=== PATIENT | male | born 1945 | race Caucasian/White ===

== ENCOUNTER → 2017-04-16 | Outpatient (CLI) | payer OTHER ==
[2017-04-16 13:32] LABS: Blood Urea Nitrogen 23 mg/dL (9-20)
== END | disposition home or self-care (01) ==
LOC: LABWHC1 12:38
PROVIDERS: ATTEND Physician Assistant
DX: R42 Dizziness and giddiness (principal)
CPT/HCPCS: 36415; 82565; 84520

== ENCOUNTER → 2017-04-17 | Outpatient (CLI) | payer OTHER ==
--- NOTE | 2017-04-19 09:03 | MR ---
EXAMINATION TYPE: MR brain wo/w con DATE OF EXAM: 04/17/2017 COMPARISON: NONE HISTORY: Dizzy,Headaches, Gadavist 7.5 TECHNIQUE: Multiplanar, multisequence images of the brain and brainstem is performed without and with IV contras t, utilizing 7.5 mL intravenous Gadavist . FINDINGS: Diffusion weighted images demonstrate no evidence of a recent infarct or other diffusion ab normality. There is no extra-axial fluid collection. Multiple prominent perivascular spaces are not ed in the level of the inferior basal ganglia. Incidentally noted cavum septum pellucidum. Numerous T 2/IR hyperintense foci are scattered throughout the periventricular and subcortical white matter. The ventricular system and cisternal spaces are normal in size and appearance for the patient's age with symmetric prominence related to age-related volume loss. Major intracranial flow voids are maintain ed. Midline structures demonstrate normal morphology. The craniocervical junction appears within normal limits. The dural venous sinuses appear patent. Moderate mucosal thickening is seen within the ethmo id sinuses. There is partial opacification of the right mastoid air cells. Globes are symmetric. Roun ded enhancement within the medulla and upper cervical spinal cord is thought to be related to vascula r artifact given its appearance on coronal images. Post contrast images demonstrate no suspicious enh ancement. IMPRESSION: 1. Partial opacification in the right mastoid air cells may relate to mastoiditis. Correlate for poin t tenderness as this could account for the patient's headaches and potentially dizziness. 2. Moderate mucosal thickening within the ethmoid sinuses relating to paranasal sinus disease. 3. Moderate burden nonspecific white matter changes, most commonly on the basis of chronic microangio tonya. 4. No evidence of acute infarct, midline shift or mass effect. No suspicious postcontrast enhancement .
== END | disposition home or self-care (01) ==
LOC: RADMRIMAIN 17:28
PROVIDERS: ATTEND Physician Assistant
DX: G93.89 Other specified disorders of brain (principal)
CPT/HCPCS: 70553; A9581

== ENCOUNTER → 2017-06-04 | Outpatient (CLI) | payer OTHER ==
--- NOTE | 2017-06-04 14:42 | US ---
EXAMINATION TYPE: US carotid duplex BILAT DATE OF EXAM: 06/04/2017 COMPARISON: NONE CLINICAL HISTORY: R55 Syncope and collapse. vertigo, h/o heart bypass, no stroke EXAM MEASUREMENTS: RIGHT: Peak Systolic Velocity (PSV) cm/sec ----- Right CCA: 70.8 ----- Right ICA: 122 ----- Right ECA: 130 ICA/CCA ratio: 1.7 RIGHT: End Diastole cm/sec ----- Right CCA: 16.8 ----- Right ICA: 29.2 ----- Right ECA: 9.5 LEFT: Peak Systolic Velocity (PSV) cm/sec ----- Left CCA: 82.0 ----- Left ICA: 200 ----- Left ECA: 127 ICA/CCA ratio: 2.4 LEFT: End Diastole cm/sec ----- Left CCA: 19.2 ----- Left ICA: 58.7 ----- Left ECA: 11.7 VERTEBRALS (direction of flow): Right Vertebral: Antegrade Left Vertebral: Antegrade Rhythm: Normal Heterogeneous plaque seen along left ICA with some stenosis. Grayscale, color Doppler, spectral Doppler imaging performed of the carotid arteries. Elevated velocity noted in the proximal internal carotid artery, there is loss of systolic window, sp ectral broadening on waveform analysis. IMPRESSION: Hemodynamic significant stenosis of the proximal internal carotid artery on the left cor responding to approximately 50-69% diameter stenosis by Doppler criteria, an indirect measurement of carotid stenosis Criteria for Assigning % of Stenosis / Diameter reduction (Estimation based on the indirect measurements of the internal carotid artery velocities (ICA PSV). 1. Normal (no stenosis)=ICA PSV < 125 cm/s: ratio < 2.0: ICA EDV<40 cm/s. 2. Less than 50% stenosis=ICA PSV < 125 cm/s: ratio < 2.0: ICA EDV<40 cm/s. 3. 50 to 69% stenosis=ICA PSV of 125 to 230 cm/s: ration 2.0 ? 4.0: ICA EDV 40-100 cm/s. 4. Greater than 70% stenosis to near occlusion= ICA PSV > 230 cm/s: ratio > 4.0: ICA EDV > 100 cm/s. 5. Near occlusion= ICA PSV velocities may be low or undetectable: variable ratio and ICA EDV. 6. Total occlusion=unable to detect flow.
== END | disposition home or self-care (01) ==
LOC: RADUSWWP 10:36
PROVIDERS: ATTEND Psychiatry & Neurology Neurology
DX: I65.22 Occlusion and stenosis of left carotid artery (principal)
CPT/HCPCS: 93880

== ENCOUNTER → 2017-07-01 | Outpatient (CLI) | payer OTHER ==
--- NOTE | 2017-07-01 12:11 | CT ---
EXAMINATION TYPE: CT iac wo con DATE OF EXAM: 07/01/2017 COMPARISON: MRI brain 04/17/2017 HISTORY: 71-year-old male vertigo, mastoiditis, hearing loss CT DLP: 150 mGycm Automated exposure control for dose reduction was used. TECHNIQUE: Contiguous high-resolution axial scanning of the temporal bones performed without IV cont rast; coronal reformatted images obtained. FINDINGS: There is no abnormality of the visualized intracranial structures by thin section CT. The external auditory canals appear patent. The middle ear cavities are well pneumatized. There is improvement in aeration of the right-sided mas toid air cells. Small amount of fluid remains. Left mastoid air cells well pneumatized. There is no abnormality of middle ear ossicles. The round and oval windows are normal. There is no abnormality of bony labyrinths. The vestibular aqueduct are well visualized. The facial nerve canal is normal bilaterally. The internal auditory canal and meati are symmetrical bilaterally. There is no evidence of fractures. Mwjw-pc-[id number] mucosal thickening within the visualized maxillary sinuses. Reformatted images confirm above findings. IMPRESSION: 1. Improved aeration of the right mastoid air cells as compared to the MRI of 04/17/2017. Minimal fluid remains. Correlate for any symptoms of mastoiditis. 2. Otherwise, unremarkable temporal bone CT. 3. Mild chronic maxillary sinus disease.
== END | disposition home or self-care (01) ==
LOC: RADCTMAIN 11:35
PROVIDERS: ATTEND Otolaryngology
DX: H70.90 Unspecified mastoiditis, unspecified ear (principal)
CPT/HCPCS: 70480

== ENCOUNTER → 2017-08-08 | Outpatient (CLI) | payer OTHER ==
[2017-08-08 15:50] LABS: Blood Urea Nitrogen 17 mg/dL (9-20)
--- NOTE | 2017-08-08 16:42 | MR ---
EXAMINATION TYPE: MR poli/lspine wo con DATE OF EXAM: 08/08/2017 COMPARISON: Lumbar spine x-ray April 07, 2013. HISTORY: Cervicalgia and lumbago per order. Headache with neck pain and vertigo and dizziness for man y years per patient. Low back pain into bilateral buttocks since 1970 per patient. 4 old L1-L4 compre ssion fractures per patient. TECHNIQUE: Multiplanar, multisequence imaging of the cervical and lumbar spine are performed without IV contrast. FINDINGS: C-SPINE: FINDINGS: Sagittal images of the cervical spine show the craniocervical junction to appear within nor mal limits. The cervical and upper thoracic spinal cord is normal in course, caliber, and signal. Th ere is slight grade 1 retrolisthesis of C4 on C5. The vertebral body heights are normal. Mild multi level disc space narrowing is seen with small posterior disc herniation effacing the anterior thecal sac C3-C4, C4-C5, and C6-C7 levels on sagittal images heterogeneity of bone marrow signal intensity w ith Modic type II endplate changes superior C7 endplate is noted. Axial images show at C2-C3 level shows some right-sided uncovertebral facet degenerative change causi ng asymmetric mild right-sided neural foraminal narrowing. Spinal canal is preserved. Left-sided neur al foramina is patent. Axial images at C3-C4 level show uncovertebral facet degenerative changes causing mild to moderate le ft and mild right-sided neural foraminal narrowing. There is right paracentral disc protrusion effaci ng anterior thecal sac. Axial images at C4-C5 levels show spondylolisthesis and broad-based posterior disc protrusion effacin g anterior thecal sac and causing moderate bilateral neural foraminal narrowing and axial image 23. Axial images at C5-C6 levels show broad disc protrusion effacing anterior thecal sac and causing mild to moderate left greater than right neural foraminal narrowing. Axial images at C6-C7 level show broad disc protrusion effaces the anterior thecal sac nearly up to v entral surface of spinal cord, bilateral neural foramina are patent. Axial images at C7-T1 level are felt within normal limits. IMPRESSION: Slight spondylolisthesis C4-C5 level. Multilevel degenerative changes in the cervical spi ne as detailed above. L-SPINE: Sagittal images of the lumbar spine show vertebral body heights and alignment to appear satisfactory. Multilevel disc desiccation is seen. There is persistent advanced disc space narrowing vacuum disc p henomenon L5-S1 level. Heterogeneous Modic type II degenerative changes seen along the left aspect. T here is overall heterogeneity of bone marrow signal intensity. Mild multilevel anterior spurring is p resent. No large posterior disc herniations are seen on sagittal images. The conus medullaris is norm al in position and signal ending inferior L1 level. Axial images show the T12-L1 level to appear within normal limits. Axial images at L1-L2 level show tiny right posterior central disc protrusion mildly effaces anterior thecal sac on axial image 23. There is mild facet arthropathy and ligament flavum hypertrophy. Bilat eral neural foramina are patent. Axial images at L2-L3 level mild facet arthropathy bilaterally. Spinal canal is preserved. Bilateral neural foramina is patent. Axial images at L3-L4 level some rqgq-qy-wwhqzblj facet degenerative changes bilaterally. There is br oad disc bulge seen mildly effaces the anterior thecal sac. There is mild right greater than left ortega ateral neural foraminal narrowing at this level identified. Axial images at L4-L5 levels moderate facet degenerative changes bilaterally. There is broad disc bul ge seen. There is [id number]-[id number] bilateral neural foraminal narrowing at this level identified. Axial images at L5-S1 level shows mild to moderate facet degenerative changes bilaterally. Spinal can al is preserved. Bilateral neural foramina are patent. No suspicious retroperitoneal findings are identified. Artifact from IVC filter is noted near axial i mage 16. IMPRESSION: Multilevel degenerative changes in lumbar spine as detailed above.
--- NOTE | 2017-08-09 12:31 | CT ---
EXAMINATION TYPE: CT angio neck DATE OF EXAM: 08/08/2017 HISTORY: Dizziness for months COMPARISON: NONE CT DLP: 325.7 mGycm. Automated Exposure Control for Dose Reduction was Utilized. TECHNIQUE: CTA scan of the neck is performed with IV Contrast, patient injected with 65 mL of Isovue 370, axial images are obtained, coronal and sagittal reformatted images are reviewed. Three-D recons tructed images are created on an independent workstation and reviewed. FINDINGS: Carotid/Vascular Structures: There are 3 super aortic branch vessels. Transverse aorta is patent. The innominate, left and right subclavian, left and right common carotid arteries are patent. Patient is post median sternotomy. Proximal internal carotid arteries show stenosis bilaterally, carotid artery calcifications are prese nt. Stenosis on the left is high-grade corresponding to approximately 80% or greater diameter stenosi s. Proximal internal carotid artery on the right shows a stenosis of approximately 60-70% diameter re duction. Vertebral arteries are patent and codominant. Internal carotid arteries show atheromatous change at t he level of the siphon bilaterally. There are calcifications present. Other: Inflammatory changes are present within the sphenoid sinus, ethmoid air cells, maxillary sinus es. Degenerative disc disease present in the visualized spine. Multilevel foraminal encroachment is p resent. Some probable scarring present in the right upper lobe. IMPRESSION: Hemodynamic significant stenosis of the proximal internal carotid arteries bilaterally le ft greater than right. Degenerative disc disease and multilevel foraminal encroachment.
== END | disposition home or self-care (01) ==
LOC: RADMRIMAIN 14:48
PROVIDERS: ATTEND Psychiatry & Neurology Neurology
DX: I65.23 Occlusion and stenosis of bilateral carotid arteries (principal); M50.30 Other cervical disc degeneration, unspecified cervical region; M43.12 Spondylolisthesis, cervical region; M47.812 Spondylosis without myelopathy or radiculopathy, cervical region; M47.817 Spondylosis without myelopathy or radiculopathy, lumbosacral region
CPT/HCPCS: 82565; 84520; 70498; 36415; 72141; 72148; Q9967

== ENCOUNTER → 2018-06-26 | Outpatient (CLI) | payer OTHER ==
--- NOTE | 2018-06-26 14:22 | MR ---
EXAMINATION TYPE: MR shoulder LT wo con DATE OF EXAM: 06/26/2018 COMPARISON: Outside left shoulder x-ray report May 13, 2018 HISTORY: L shoulder pain for 2 months with difficulty raising overhead after injury per patient. TECHNIQUE: Multiplanar, multisequence imaging of the left shoulder is performed without contrast. FINDINGS: Rotator Cuff: Distal supraspinatus and infraspinatus tendons are intact. Distal subscapularis tendon is not well identified but presumed intact. No suspicious tear is seen. Rotator cuff muscle bulk is p reserved. Acromioclavicular Joint: There is mild to moderate spurring with erosive changes at acromioclavicular joint but no adjacent osseous edema. Underlying fat plane is maintained. Distal acromion morphology is unremarkable. Glenohumeral Joint: Small to moderate glenohumeral joint effusion. Moderate narrowing with small spur ring inferior medial humeral head. Labrum: The superior labrum shows some degenerative increased signal coronal image 14 and 15 for refe rence consistent with degenerative tear. Biceps Tendon: The long head of biceps is in normal location within bicipital groove. Focal increased surrounding fluid axial image 5 is noted. Bone marrow signal: Subchondral cystic change superolateral humeral head coronal image 20 and axial i mage 15 is noted along posterior aspect. Other: No additional significant abnormality is appreciated. IMPRESSION: 1. No rotator cuff tear is seen. 2. No suspicious osseous edema at acromioclavicular joint to suggest acute inflammation. Fairly moder ate degenerative changes as detailed above.
--- NOTE | 2018-06-26 15:09 | MR ---
EXAMINATION TYPE: MR lumbar spine wo/w con DATE OF EXAM: 06/26/2018 1:57 PM COMPARISON: 08/08/2017 HISTORY: Back pain CONTRAST: The patient was injected with 7.5 mL intravenous Gadavist gadolinium contrast. Multiplanar, MultiSpin echo imaging of the lumbar spine was performed. Decreased bone marrow signal intensity in T1 weighted imaging may reflect bone marrow reconversion. Correlate with CBC. L1-L2: Normal disc appearance without desiccation. No herniation, protrusion or disc bulging. No ca nal stenosis is present. Foramina are patent bilaterally. L2-L3: Mild disc desiccation noted. Mild circumferential disc bulge with mild effacement of the ventr al thecal sac. No evidence for disc herniation or protrusion. No central stenosis or foraminal encroa chment. L3-L4: Normal disc appearance without desiccation. No herniation, protrusion or disc bulging. No ca nal stenosis is present. Foramina are patent bilaterally. L4-L5: Normal disc appearance without desiccation. No herniation, protrusion or disc bulging. No ca nal stenosis is present. Foramina are patent bilaterally. L5-S1: Severe disc desiccation. Mild posterior disc bulge. No herniation protrusion or central stenos is. No evidence for foraminal encroachment. Lumbar segments are intact. No paraspinal masses are identified. Conus medullaris has a normal appe arance. Simple cyst right kidney IMPRESSION: 1. Decreased bone marrow signal intensity in T1 weighted imaging may reflect bone marrow reconversion . Correlate with CBC. 2. Disc desiccation with disc bulging. No herniation or central stenosis.
== END | disposition home or self-care (01) ==
LOC: RADMRIMAIN 12:30
PROVIDERS: ATTEND Physician Assistant
DX: M19.012 Primary osteoarthritis, left shoulder (principal); M51.26 Other intervertebral disc displacement, lumbar region
CPT/HCPCS: 72158; 73221; A9585

== ENCOUNTER → 2020-08-20 | Outpatient (CLI) | payer OTHER ==
--- NOTE | 2020-08-20 17:47 | MR ---
EXAMINATION TYPE: MR brain wo con DATE OF EXAM: 08/20/2020 COMPARISON: 04/17/2017 HISTORY: Vision loss. Vertigo. Tremors Multiplanar planar multiecho imaging of the brain without contrast. Findings: There is some cerebral cortical atrophy. There is no mass effect nor midline shift. There is no sign of intracranial hemorrhage. Diffusion images show no evidence of an acute infarct. On the T2 and FLAI R images there are multiple scattered small foci of abnormal increased signal at the boland-white matte r junction of both cerebral hemispheres. There is also lesions adjacent to the ventricles. These irving ure up to 8 mm and total number is approximately 25. The brainstem is intact. Cerebellum is intact. Sella turcica appears normal. There is no evidence of orbital mass.. IMPRESSION: Multiple white matter high signal foci are nonspecific. This could relate to chronic small vessel isc hemia or demyelinating disease and appear not significantly different than old exam. Mild cerebral at rophy. No evidence of an acute infarct.
== END | disposition home or self-care (01) ==
LOC: RADMRIMAIN 13:09
PROVIDERS: ATTEND Psychiatry & Neurology Neurology
DX: G31.9 Degenerative disease of nervous system, unspecified (principal)
CPT/HCPCS: 70551

== ENCOUNTER → 2020-09-20 | Outpatient (CLI) | payer OTHER ==
--- NOTE | 2020-09-21 02:42 | MR ---
EXAMINATION TYPE: MR lumbar spine wo con DATE OF EXAM: 09/20/2020 COMPARISON: 06/16/2018 HISTORY: Low back pain Multiplanar multiecho imaging of the lumbar spine was performed without contrast. Lumbar vertebra have normal alignment. There is mild disc space narrowing throughout the lumbar spine. There is some mild biconcave changes in the lumbar vertebra consistent with osteomalacia. There is severe narrowing of L5-S1 disc space. T here is developmentally adequate spinal canal and no significant spinal stenosis. There is no lumbar paraspinal mass. Sacroiliac joints are intact. There is no evidence of focal bone destruction. IMPRESSION: Mild spondylotic changes. Mild osteomalacia type changes with some biconcave deformity of the vertebr al bodies. No significant change compared to old exam. No spinal stenosis.
== END | disposition home or self-care (01) ==
LOC: RADMRIMAIN 15:31
PROVIDERS: ATTEND Physician Assistant
DX: M47.816 Spondylosis without myelopathy or radiculopathy, lumbar region (principal)
CPT/HCPCS: 72148

== ENCOUNTER → 2021-01-04 | Outpatient (CLI) | payer OTHER ==
--- NOTE | 2021-01-05 07:10 | MR ---
EXAMINATION TYPE: MR knee RT wo con DATE OF EXAM: 01/04/2021 COMPARISON: None. HISTORY: Pain and swelling in right knee, history of prior surgery per patient TECHNIQUE: Multiplanar, multisequence imaging of the right knee is performed without IV contrast. FINDINGS: MEDIAL MENISCUS: Faint horizontal increased signal medial meniscus extends from anterior to posterior horns with central body sagittal image 6, does not abut articular surface. There is deeper cleft giacomo ntified suspect prior surgical partial meniscectomy, correlate clinically. LATERAL MENISCUS: Anterior and posterior horns are intact without tear. CRUCIATE LIGAMENTS: The anterior and posterior cruciate ligaments are intact and unremarkable. COLLATERAL LIGAMENTS: The medial collateral ligament and lateral collateral ligament complex are inta ct and unremarkable. EXTENSOR MECHANISM: Visualized quadriceps and patellar tendons are intact. EFFUSION: No significant suprapatellar joint effusion. POPLITEAL CYST: Small popliteal/june cyst sagittal image 9. TRICOMPARTMENT SPACES: Moderate narrowing patellofemoral compartment. Mild narrowing medial lateral t ibiofemoral compartments. Mild tricompartmental spurring. CARTILAGE: Chondromalacia patella with thinning of articular cartilage along the posterior patellar p ole particularly the inferior lateral aspect. BONE MARROW SIGNAL: No focal abnormal marrow signal is appreciated. OTHER: No additional significant abnormality is appreciated. IMPRESSION: 1. Mild to moderate tricompartment degenerative changes greatest patellofemoral compartment as detail ed above. 2. Prior partial medial meniscectomy change suspected, correlate clinically. Possible new intrasubsta nce tear in the residual medial meniscus. 3. Small popliteal cyst.
== END | disposition home or self-care (01) ==
LOC: RADMRIMAIN 11:46
PROVIDERS: ATTEND Physician Assistant
DX: M17.11 Unilateral primary osteoarthritis, right knee (principal); M71.21 Synovial cyst of popliteal space [Baker], right knee

== ENCOUNTER 2021-03-26 20:29 | Emergency (ER) | payer OTHER ==
[2021-03-26 22:05] VITALS: BP 146/83; PULSE 61; RESP 20; TEMP 97.4
--- NOTE | 2021-03-26 22:27 | XR ---
EXAMINATION TYPE: XR knee complete RT DATE OF EXAM: 03/26/2021 COMPARISON: NONE HISTORY: Knee pain TECHNIQUE: 3 views FINDINGS: There is no sign of fracture nor dislocation. Joint spaces are normal. Patella is intact. T here is vascular calcification. IMPRESSION: Negative right knee exam. No fracture seen.
[2021-03-26] MEDS ORDERED: BACITRACIN OINT 1 EACH PACKET TOPICAL ONE (22:48)
--- NOTE | 2021-03-26 22:50 | ED ---
General Adult HPI - General Chief complaint: Fall Stated complaint: Fall-R knee injury Time Seen by Provider: 03/26/21 22:39 Source: patient Mode of arrival: ambulatory - History of Present Illness Initial comments: 75-year-old male patient presents to the emergency room for evaluation of right knee injury. Patient states he was walking his cane slipped on ice and he fell landing on the right knee. Patient denies hitting his head or losing consciousness. States he is having some sneezing swelling and pain. He was recently taking Plavix does take aspirin so is concerned about bleeding. He is able to bear weight on the leg. Denies numbness or tingling. Denies any difficulty with range of motion. Denies taking any medication for pain. Tetanus vaccine is up to date within the last 5 years. - Related Data Allergies Allergy/AdvReac Type Severity Reaction Status Date / Time lisinopril AdvReac Abdominal Verified 03/26/21 21:50 Pain [id number] Reductase AdvReac Abdominal Verified 03/26/21 21:50 Inhibitor Pain Review of Systems ROS Statement: Those systems with pertinent positive or pertinent negative responses have been documented in the HPI. ROS Other: All systems not noted in ROS Statement are negative. Past Medical History Past Medical History: CVA/TIA, Hyperlipidemia, Hypertension History of Any Multi-Drug Resistant Organisms: None Reported Past Surgical History: Coronary Bypass/CABG, Heart Catheterization With Stent Additional Past Surgical History / Comment(s): Left inner carotid, shamika filter Past Psychological History: No Psychological Hx Reported Smoking Status: Never smoker Past Alcohol Use History: None Reported Past Drug Use History: None Reported General Exam General appearance: alert, in no apparent distress, other (This is a well-developed, well-nourished adult male in no acute distress.) Respiratory exam: Present: normal lung sounds bilaterally. Absent: respiratory distress, wheezes, rales, rhonchi, stridor Cardiovascular Exam: Present: regular rate, normal rhythm, normal heart sounds. Absent: systolic murmur, diastolic murmur, rubs, gallop, clicks GI/Abdominal exam: Present: soft, normal bowel sounds. Absent: distended, tenderness, guarding, rebound, rigid Extremities exam: Present: full ROM, tenderness (Anterior right knee), normal capillary refill, other (Ur is superficial abrasion noted to the right anterior knee. Mild soft tissue swelling. Full range of motion is intact. Skin is otherwise pink, warm, dry. Cap refill less than 3 seconds. Pedal and posttibial pulses are 2+ and equal bilaterally.). Absent: normal inspection, pedal edema, joint swelling, calf tenderness Neurological exam: Present: alert, oriented X3, CN II-XII intact Psychiatric exam: Present: normal affect, normal mood Skin exam: Present: warm, dry, intact, normal color. Absent: rash Course Vital Signs 03/26/21 21:52 Temperature 97.4 F L Pulse Rate 61 Respiratory 20 Rate Blood Pressure 146/83 O2 Sat by Pulse 97 Oximetry Medical Decision Making - Medical Decision Making 75-year-old male patient presented for evaluation of right knee injury after fall. Physical examination did reveal mild soft tissue swelling and superficial abrasion. He is able to bear weight, full range of motion is intact, neurovascular status is intact. X-rays negative for any acute fracture or evidence for joint effusion. Wound was cleansed, bacitracin and dressing applied. Justin wrap applied to the knee. He is discharged follow up with his primary care physician for recheck in 1-2 days. He does have planned follow-up with orthopedics for chronic issues with this right knee. Return parameters were discussed in detail. He verbalizes understanding and is discharged in stable condition. My attending is Dr. Gipson. - Radiology Data Radiology results: report reviewed, image reviewed 3 views of the right knee are obtained. Report was reviewed in its entirety. Impression by Dr. Marquez shows negative right knee exam. No fracture seen. Disposition Clinical Impression: Contusion of right knee, Abrasion of right knee Disposition: HOME SELF-CARE Condition: Good Instructions (If sedation given, give patient instructions): Contusion in Adults (ED), Abrasion (ED) Additional Instructions: Keep wound clean and dry. Cleanse twice daily with warm water and antibacterial soap. Use Justin wrap for comfort and support. Follow-up with her primary care physician orthopedics as you have planned. Return for any new, worsening, or concerning symptoms. Is patient prescribed a controlled substance at d/c from ED?: No Referrals: [facility],Clinic [Primary Care Provider] - 1-2 days Time of Disposition: 22:50
[2021-03-26] MEDS ORDERED: ACETAMINOPHEN TAB 500 MG TAB PO STA (23:06)
== END 2021-03-26 23:20 | disposition home or self-care (01) ==
LOC: EC 20:29
DX: S80.01XA Contusion of right knee, initial encounter (principal); E78.5 Hyperlipidemia, unspecified; I10 Essential (primary) hypertension; Z86.73 Personal history of transient ischemic attack (TIA), and cerebral infarction without residual deficits; Z95.1 Presence of aortocoronary bypass graft; W22.8XXA Striking against or struck by other objects, initial encounter
CPT/HCPCS: 99283

== ENCOUNTER 2021-07-12 05:57 | Day surgery (SDC) | payer OTHER ==
[2021-07-11 09:04] VITALS: BMI 24.0
[2021-07-12] MEDS ORDERED: ASPIRIN 325 MG TAB PO STA (06:07)
[2021-07-12] MEDS ORDERED: ALPRAZolam 0.5 MG TAB PO PRN (06:07)
[2021-07-12] MEDS ORDERED: SODIUM CHLORIDE 0.9% 1,000 ML in EMPTY BAG 1 BAG IV SCH (06:07)
[2021-07-12] MEDS ORDERED: NITROGLYCERIN SL TABS 0.4 MG TAB SUBLINGUAL PRN (06:07)
[2021-07-12] MEDS ORDERED: ALPRAZolam 0.25 MG TAB PO PRN (06:07)
[2021-07-12 06:31] VITALS: RESP 18; TEMP 98.4
[2021-07-12 06:53] LABS: Basophils # (A) 0.1 k/uL (0-0.2); Basophils % (A) 1 %; Eosinophils # (A) 0.5 k/uL (0-0.7); Eosinophils % (A) 5 %; HCT 45.7 % (39.0-53.0); HGB 15.4 gm/dL (13.0-17.5); Lymphocytes # (A) 2.7 k/uL (1.0-4.8); Lymphocytes % (A) 29 %; MCH 31.3 pg (25.0-35.0); MCHC 33.6 g/dL (31.0-37.0); Mean Platelet Volume 9.5; Monocytes # (A) 0.9 k/uL (0-1.0); Monocytes % (A) 9 %; Neutrophils # (A) 5.1 k/uL (1.3-7.7); Neutrophils % (A) 54 %; Platelet Count 188 k/uL (150-450); RBC 4.91 m/uL (4.30-5.90); RDW 13.5 % (11.5-15.5); WBC 9.5 k/uL (3.8-10.6)
[2021-07-12 07:01] LABS: African American GFR (CKD) >90 (>60 ml/min/1.73 sqM); Anion Gap 8 mmol/L; Blood Urea Nitrogen 17 mg/dL (9-20); Calcium 9.1 mg/dL (8.4-10.2); Carbon Dioxide 28 mmol/L (22-30); Chloride 103 mmol/L (98-107); Glucose 99 mg/dL (74-99); Non-African American GFR(CKD) 86 (>60 ml/min/1.73 sqM); Potassium 4.5 mmol/L (3.5-5.1); Sodium 139 mmol/L (137-145)
[2021-07-12] MEDS ORDERED: MIDAZOLAM 2 MG/2 ML VIAL IVP ONE (07:40)
[2021-07-12] MEDS ORDERED: LIDOCAINE 1% INJ 10MG/ML (30 ML VIAL-PF) SQ ONE (07:42)
[2021-07-12] MEDS ORDERED: HYDROmorphone 0.5 MG/0.5 ML SYRINGE IVP ONE (08:04)
[2021-07-12] MEDS ORDERED: NITROGLYCERIN SL TABS 0.4 MG TAB SUBLINGUAL ONE ×2 (08:06→08:07)
[2021-07-12] MEDS ORDERED: IOPAMIDOL-370 100ML BTL INJ ONE ×2 (08:07→08:17)
[2021-07-12] MEDS ORDERED: NITROGLYCERIN 1000MCG/10ML SYRINGE INTRACORON ONE (08:08)
[2021-07-12] MEDS ORDERED: SODIUM CHLORIDE 0.9% 1,000 ML IV SCH (08:32)
--- NOTE | 2021-07-12 10:47 | CC ---
CARDIAC CATHETERIZATION REPORT DATE OF SERVICE: 07/12/2021 PROCEDURE: Left heart catheterization, selective injection of bypass grafts and selective coronary angiography. PERFORMED BY: Dr. Jayne Galeana. Moderate conscious sedation time was 39 minutes. He was administered Versed. Oxygen saturation, hemodynamics and EKG were monitored closely. CLINICAL INFORMATION: Mr. Aviles is a 75-year-old gentleman with a history of aortocoronary bypass surgery in June 2007 with a BARNETT to LAD, vein graft to the diagonal and another vein graft with a jump graft to the PLV branch of circumflex and PDA branch of RCA. Because of a significant abnormality in the stress test with inferolateral reversible defect, he was advised cardiac catheterization after due discussion regarding risks, benefits and options. PROCEDURE NOTE: Under local anesthesia and strict aseptic precautions, a 6-Jordanian introducer was placed in the right femoral artery. A JL4 catheter was used to perform selective coronary angiography of the left system and a Josh catheter was used to perform selective coronary angiography of the [place] RCA, vein graft which was a jump graft to the PDA branch of RCA and PLV branch of circumflex as well as the left internal mammary artery injection. An AR2 catheter was used to perform selective coronary angiography of the diagonal graft. A pigtail catheter was used to check LV pressure, but LV gram was not performed. The sheath was taken out and Angio-Seal device used to secure hemostasis. During the injection into the jump graft, there was a brief air embolism that caused mild chest discomfort which resolved quickly after administration of oxygen and nitroglycerin. CARDIAC CATHETERIZATION FINDINGS: Left ventricular end-diastolic pressure was about 13 mmHg without any gradient across aortic valve. CORONARY ANGIOGRAPH FINDINGS: RIGHT CORONARY ARTERY: This vessel is totally occluded, seen as a stump with very limited antegrade flow. The opacified RCA is diffusely diseased. LEFT MAIN CORONARY ARTERY: This is a long vessel, tortuous. Distally it has about a 30% narrowing. It bifurcates into LAD and circumflex. Distal left main has about a 20% to 30% narrowing. LEFT ANTERIOR DESCENDING CORONARY ARTERY: This vessel is totally occluded after two small septal and diagonal branches. LEFT POSTERIOR CIRCUMFLEX CORONARY ARTERY: This vessel gives off obtuse marginal branches which seem to be occluded and are small. Distally there is a competitive flow noted. Mid circumflex has a 40% narrowing. The PLV branch of circumflex seems to have a competitive flow. SAPHENOUS VEIN JUMP GRAFT TO THE PDA BRANCH OF PROBABLY RCA AND PLV BRANCH OF CIRCUMFLEX: This graft is widely patent at its origin, and insertion site into the PLV branch of circumflex is widely patent. Remarkable opacification is noted of the circumflex PLV branch. However, the graft that attaches to the PDA has diffuse disease and beyond insertion there is not much flow and PDA appears to be a smaller vessel. This may be the culprit area. The graft is diseased, and after opacification the PDA also has diffuse disease in it. SAPHENOUS VEIN GRAFT TO THE DIAGONAL BRANCH OF LAD: This graft is widely patent at its origin and course and insertion site, and opacified diagonal is free of significant disease; has minor irregularities. LEFT INTERNAL MAMMARY ARTERY GRAFT TO LAD: This graft is widely patent, has no significant disease, and the LAD has mild diffuse disease throughout as it runs to the apex. LAD has therefore mild diffuse disease throughout, but graft is patent. 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 Left main has distal 20% lesion. Vein graft which is a jump graft to the PDA branch of RCA and PLV branch of circumflex is patent to the PLV of circumflex limb, but the PDA limb has diffuse disease and opacification of the PDA, probably of the RCA is diffusely diseased. Vein graft to the diagonal is patent with good flow. BARNETT to LAD is patent with diffuse disease in LAD. RECOMMENDATIONS: Findings were discussed with the patient and family. I am recommending continued medical therapy with risk factor modification. No intervention is necessary at this time. I discussed my thoughts in detail with the patient and family and I expect he will be discharged later on in the day. He had a lot of issues with statin, but I will resume at a low dose of Crestor at 10 mg daily. MMODL / IJN: [id number] /
[2021-07-12] MEDS ORDERED: SODIUM CHLORIDE 0.9% 500 ML 500 ML IV ONE (14:00)
[2021-07-12 16:23] VITALS: BP 144/67; PULSE 66
== END 2021-07-12 15:45 | disposition home or self-care (01) ==
LOC: CATHCVL 05:57
PROVIDERS: ATTEND Internal Medicine Interventional Cardiology
DX: I25.10 Atherosclerotic heart disease of native coronary artery without angina pectoris (principal); Z95.1 Presence of aortocoronary bypass graft; Z20.822 Contact with and (suspected) exposure to COVID-19
CPT/HCPCS: 93459; 80048; 85025; 87635; C1760; C1894; C1769 ×2; J2250; J2001; J1170; Q9967

== ENCOUNTER 2021-08-05 18:38 | Observation (INO) | payer OTHER ==
[2021-08-05 18:46] VITALS: RESP 18
--- NOTE | 2021-08-05 19:11 | ED ---
General Adult HPI - General Chief complaint: Arrhythmia/Palpitations Stated complaint: Irregular heartbeat/SOB Time Seen by Provider: 08/05/21 18:51 Source: patient Mode of arrival: ambulatory Limitations: no limitations - History of Present Illness Initial comments: 75-year-old male patient presents to the emergency department today for evaluation of fluttering sensation in his chest. States that symptoms started a few days ago and have persisted. States he has a tight feeling in the left side of his chest. Denies any shortness of breath, dizziness, weakness. Denies any nausea, vomiting, or sweats. He did have a heart catheterization 3 weeks ago, did have an air embolus during the procedure in significant discomfort. States that he did have thinning of to of his blood vessels from his quadruple bypass however there again and treat medically rather than perform any intervention. He did stop taking his Plavix and fish oil today for an upcoming radiofrequency ablation procedure for pain management. Patient denies any recent rash, fever, chills, cough, abdominal pain, diarrhea, constipation, back pain, numbness, tingling, hematuria, dysuria, urinary urgency, urinary frequency, headache, visual changes, or any other complaints. - Related Data Home Medications Medication Instructions Recorded Confirmed Acetaminophen [Tylenol] 500 mg PO TID PRN 07/11/21 08/05/21 Clopidogrel [Plavix] 75 mg PO DAILY 07/11/21 08/05/21 Ezetimibe [Zetia] 10 mg PO HS 07/11/21 08/05/21 Famotidine 20 mg PO BID 07/11/21 08/05/21 Losartan [Cozaar] 50 mg PO BID 07/11/21 08/05/21 Multivit-Min/Folic/Vit K/Lycop 1 tab PO DAILY 07/11/21 08/05/21 [Men's Multivitamin Tablet] Primidone [Mysoline] 100 mg PO TID 07/11/21 08/05/21 Rosuvastatin Calcium 40 mg PO HS 07/11/21 08/05/21 atenoloL 37.5 mg PO DAILY 07/11/21 08/05/21 Divalproex Sodium [Depakote] 125 mg PO HS 08/05/21 08/05/21 Divalproex Sodium [Depakote] 500 mg PO 08/05/21 08/05/21 Gabapentin 300 mg PO DAILY 08/05/21 08/05/21 Lidocaine 5% Patch [Lidoderm] 1 patch TRANSDERM DAILY 08/05/21 08/05/21 Meclizine [Antivert] 50 mg PO TID PRN 08/05/21 08/05/21 [place]-3 Fatty Acids/Fish Oil [Fish 1 cap PO DAILY 08/05/21 08/05/21 Oil 1,000 mg Softgel] Sildenafil Citrate 100 mg PO DIRECTED PRN 08/05/21 08/05/21 Tamsulosin [Flomax] 0.4 mg PO DAILY 08/05/21 08/05/21 methocarbamoL [Robaxin] 500 mg PO BID PRN 08/05/21 08/05/21 traMADol HCL 50 mg PO QID PRN 08/05/21 08/05/21 Allergies Allergy/AdvReac Type Severity Reaction Status Date / Time fluvastatin [From Lescol] Allergy per [facility] Verified 08/05/21 22:12 janina lisinopril AdvReac Cough Verified 08/05/21 21:17 simvastatin [From Zocor] AdvReac Abdominal Verified 08/05/21 22:12 Pain Cwpfloh-[id number]-[id number] Reductase AdvReac Abdominal Verified 08/05/21 21:17 Inhibitor Pain Review of Systems ROS Statement: Those systems with pertinent positive or pertinent negative responses have been documented in the HPI. ROS Other: All systems not noted in ROS Statement are negative. Past Medical History Past Medical History: Hearing Disorder / Deafness, Hyperlipidemia, Hypertension, Musculoskeletal Disorder, Prostate Disorder Additional Past Medical History / Comment(s): Back and bilateral knee pain. Enlarged prostate. Vertigo. Hard of hearing, worse in left ear. History of Any Multi-Drug Resistant Organisms: None Reported Past Surgical History: Coronary Bypass/CABG, Heart Catheterization With Stent Additional Past Surgical History / Comment(s): Quadruple bypass 14 yrs ago, left inner carotid, shamika filter. Past Anesthesia/Blood Transfusion Reactions: No Reported Reaction Additional Past Anesthesia/Blood Transfusion Reaction / Comment(s): Vertigo. Date of Last Stent Placement:: unk Past Psychological History: No Psychological Hx Reported Smoking Status: Never smoker Past Alcohol Use History: None Reported Past Drug Use History: None Reported - Past Family History Daughter(s) Family Medical History: Cancer Additional Family Medical History / Comment(s): Breast cancer. General Exam Limitations: no limitations General appearance: alert, in no apparent distress, other (This is a well- developed, well-nourished elderly male patient in no acute distress.) ENT exam: Present: normal exam, normal oropharynx, mucous membranes moist Respiratory exam: Present: normal lung sounds bilaterally. Absent: respiratory distress, wheezes, rales, rhonchi, stridor Cardiovascular Exam: Present: regular rate, normal rhythm, normal heart sounds. Absent: systolic murmur, diastolic murmur, rubs, gallop, clicks GI/Abdominal exam: Present: soft, normal bowel sounds. Absent: distended, t enderness, guarding, rebound, rigid Neurological exam: Present: alert, oriented X3, CN II-XII intact Psychiatric exam: Present: normal affect, normal mood Skin exam: Present: warm, dry, intact, normal color. Absent: rash Course Vital Signs 08/05/21 08/05/21 18:44 19:39 Temperature 98.4 F Pulse Rate 66 68 Respiratory 18 18 Rate Blood Pressure 158/78 140/79 O2 Sat by Pulse 97 96 Oximetry EKG Findings - EKG Comments: EKG Findings:: EKG obtained at 1904 shows sinus rhythm with a rate of 60, ME interval 160, QR [facility] 92, QT 409, QTC 411. No evidence of ST elevation or depression. Medical Decision Making - Medical Decision Making 75-year-old male patient presented to the emergency department today for 4-5 day history of palpitations chest tightness. He is 3 weeks status post cardiac catheterization with complication of air embolus during the procedure. Physical examination is unremarkable. EKG shows sinus rhythm. Labs are unremarkable. Troponins negative. Chest x-rays negative. He'll be admitted to observation fo r further evaluation by cardiology in the morning. Patient is agreeable with this plan. My attending is Dr. Norwood. - Lab Data Result diagrams: 08/05/21 19:22 08/05/21 19: Lab Results 08/05/21 08/05/21 08/05/21 Range/Units 19:22 19:22 19: WBC 7.8 (3.8-10.6) k/uL RBC 4.74 (4.30-5.90) m/uL Hgb 14.3 (13.0-17.5) gm/dL Hct 44.2 (39.0-53.0) % MCV 93.1 (80.0-100.0) fL MCH 30.1 (25.0-35.0) pg MCHC 32.3 (31.0-37.0) g/dL RDW 12.5 (11.5-15.5) % Plt Count 187 (150-450) k/uL MPV 9.6 Neutrophils % 75 % Lymphocytes % 14 % Monocytes % 7 % Eosinophils % 2 % Basophils % 1 % Neutrophils # 5.8 (1.3-7.7) k/uL Lymphocytes # 1.1 (1.0-4.8) k/uL Monocytes # 0.5 (0-1.0) k/uL Eosinophils # 0.2 (0-0.7) k/uL Basophils # 0.1 (0-0.2) k/uL PT 11.5 (9.0-12.0) sec INR 1.1 (<1.2) APTT 25.0 (22.0-30.0) sec D-Dimer 0.43 (<0.60) mg/L FEU Sodium 137 (137-145) mmol/L Potassium 4.4 (3.5-5.1) mmol/L Chloride 99 (98-107) mmol/L Carbon Dioxide 28 (22-30) mmol/L Anion Gap 10 mmol/L BUN 17 (9-20) mg/dL Creatinine 0.85 (0.66-1.25) mg/dL Est GFR (CKD-EPI)AfAm >90 (>60 ml/min/1.73 sqM) Est GFR (CKD-EPI)NonAf 86 (>60 ml/min/1.73 sqM) Glucose 92 (74-99) mg/dL Calcium 9.2 (8.4-10.2) mg/dL Magnesium 2.2 (1.6-2.3) mg/dL Total Bilirubin 0.5 (0.2-1.3) mg/dL AST 46 (17-59) U/L ALT 62 H (4-49) U/L Alkaline Phosphatase 55 (38-126) U/L Troponin I (0.000-0.034) ng/mL Total Protein 7.8 (6.3-8.2) g/dL Albumin 4.8 (3.5-5.0) g/dL TSH 1.150 (0.465-4.680) mIU/L 08/05/21 Range/Units 19:22 WBC (3.8-10.6) k/uL RBC (4.30-5.90) m/uL Hgb (13.0-17.5) gm/dL Hct (39.0-53.0) % MCV (80.0-100.0) fL MCH (25.0-35.0) pg MCHC (31.0-37.0) g/dL RDW (11.5-15.5) % Plt Count (150-450) k/uL MPV Neutrophils % % Lymphocytes % % Monocytes % % Eosinophils % % Basophils % % Neutrophils # (1.3-7.7) k/uL Lymphocytes # (1.0-4.8) k/uL Monocytes # (0-1.0) k/uL Eosinophils # (0-0.7) k/uL Basophils # (0-0.2) k/uL PT (9.0-12.0) sec INR (<1.2) APTT (22.0-30.0) sec D-Dimer (<0.60) mg/L FEU Sodium (137-145) mmol/L Potassium (3.5-5.1) mmol/L Chloride (98-107) mmol/L Carbon Dioxide (22-30) mmol/L Anion Gap mmol/L BUN (9-20) mg/dL Creatinine (0.66-1.25) mg/dL Est GFR (CKD-EPI)AfAm (>60 ml/min/1.73 sqM) Est GFR (CKD-EPI)NonAf (>60 ml/min/1.73 sqM) Glucose (74-99) mg/dL Calcium (8.4-10.2) mg/dL Magnesium (1.6-2.3) mg/dL Total Bilirubin (0.2-1.3) mg/dL AST (17-59) U/L ALT (4-49) U/L Alkaline Phosphatase (38-126) U/L Troponin I <0.012 (0.000-0.034) ng/mL Total Protein (6.3-8.2) g/dL Albumin (3.5-5.0) g/dL TSH (0.465-4.680) mIU/L - Radiology Data Radiology results: report reviewed, image reviewed 2 views of the chest are obtained. Report was reviewed in its entirety. Impression by Dr. Marquez shows mild scarring or atelectasis in the right midlung field. Normal heart. Disposition Clinical Impression: Palpitations, Chest tightness Disposition: ADMITTED IP TO THIS [facility] Condition: Serious Decision to Admit Reason: Admit from EC Decision Date: 08/05/21 Decision Time: 20:53
[2021-08-05 19:30] LABS: Basophils # (A) 0.1 k/uL (0-0.2); Basophils % (A) 1 %; Eosinophils # (A) 0.2 k/uL (0-0.7); Eosinophils % (A) 2 %; HCT 44.2 % (39.0-53.0); HGB 14.3 gm/dL (13.0-17.5); Lymphocytes # (A) 1.1 k/uL (1.0-4.8); Lymphocytes % (A) 14 %; MCH 30.1 pg (25.0-35.0); MCHC 32.3 g/dL (31.0-37.0); MCV 93.1 fL (80.0-100.0); Mean Platelet Volume 9.6; Monocytes # (A) 0.5 k/uL (0-1.0); Monocytes % (A) 7 %; Neutrophils # (A) 5.8 k/uL (1.3-7.7); Neutrophils % (A) 75 %; Platelet Count 187 k/uL (150-450); RBC 4.74 m/uL (4.30-5.90); RDW 12.5 % (11.5-15.5); WBC 7.8 k/uL (3.8-10.6)
[2021-08-05 19:40] LABS: ALT 62 U/L (4-49); AST 46 U/L (17-59); African American GFR (CKD) >90 (>60 ml/min/1.73 sqM); Albumin 4.8 g/dL (3.5-5.0); Alkaline Phosphatase 55 U/L (38-126); Anion Gap 10 mmol/L; Blood Urea Nitrogen 17 mg/dL (9-20); Calcium 9.2 mg/dL (8.4-10.2); Carbon Dioxide 28 mmol/L (22-30); Chloride 99 mmol/L (98-107); Glucose 92 mg/dL (74-99); Magnesium 2.2 mg/dL (1.6-2.3); Non-African American GFR(CKD) 86 (>60 ml/min/1.73 sqM); Potassium 4.4 mmol/L (3.5-5.1); Sodium 137 mmol/L (137-145); Total Bilirubin 0.5 mg/dL (0.2-1.3); Total Protein 7.8 g/dL (6.3-8.2)
[2021-08-05 19:43] LABS: INR 1.1 (<1.2); Prothrombin Time 11.5 sec (9.0-12.0)
--- NOTE | 2021-08-05 19:46 | XR ---
EXAMINATION TYPE: XR chest 2V DATE OF EXAM: 08/05/2021 COMPARISON: NONE HISTORY: Pain TECHNIQUE: 2 view FINDINGS: Heart is normal. There is some mild linear density right midlung field. There are sternal w ires. Costophrenic angles are clear. The bony thorax is intact. There are sternal wires. IMPRESSION: There is some mild scarring or atelectasis in the right mid lung field. Normal heart.
[2021-08-05] MEDS ORDERED: NALOXONE 0.4 MG/ML 1 ML VIAL IV PRN (20:53)
[2021-08-05] MEDS ORDERED: DIVALPROEX 500 MG TABLET.DR PO SCH (23:15)
[2021-08-05] MEDS ORDERED: DIVALPROEX 250 MG TABLET.DR PO SCH (23:15)
[2021-08-05] MEDS ORDERED: EZETIMIBE 10 MG TAB PO SCH (23:15)
[2021-08-05] MEDS ORDERED: ATORVASTATIN 80 MG TAB PO SCH (23:15)
[2021-08-05] MEDS: FAMOTIDINE 20 MG TAB PO SCH (23:43)
[2021-08-05] MEDS: LOSARTAN 50 MG TAB PO SCH (23:43)
[2021-08-05] MEDS: PRIMIDONE 50 MG TAB PO SCH (23:55)
--- NOTE | 2021-08-06 01:42 | P.HPIM ---
History of Present Illness H&P Date: 08/05/21 Chief Complaint: palpitations 75 year old male with hypertension , hyperlipidemia , CAD s/p CABG comes in today with worsening history of palpitations. which he believes they started after having a left heart cath 3 weeks ago, at that time he was told that he had an air embolism, but otherwise his left heart cath did not reveal any severe disease and did not require deploying any stents. since then he has been having random episodes of palpitations and heart fluttering. which go worse and more frequent over past couple days and he decided to come for evaluation now. no associated chest pain , SOB, dizziness lightheadedness, nausea or vomiting. denies any fever , chills cough, syncope or near syncope. in the ED blood work unremarkable , had few episodes of fluttering but cardiac rehab nurse was only showing PVCs. otherwise his EKG showing NSR. he started holding his plavix today for anticipated lower back RF ablation next week, however, he had carotid stenting done in March 2021, and was told to continue plavix for at least until end of summer. patient did not discuss this with his pump installation and servicer and stopped the plavix on his own , I suggested he resumes plavix , and to discuss this with cardiology before stopping important meds like this Review of Systems Pertinent positives as noted in HPI. All other systems were reviewed and are negative Past Medical History Past Medical History: Hearing Disorder / Deafness, Hyperlipidemia, Hypertension, Musculoskeletal Disorder, Prostate Disorder Additional Past Medical History / Comment(s): Back and bilateral knee pain. Enlarged prostate. Vertigo. Hard of hearing, worse in left ear. History of Any Multi-Drug Resistant Organisms: None Reported Past Surgical History: Coronary Bypass/CABG, Heart Catheterization With Stent Additional Past Surgical History / Comment(s): Quadruple bypass 14 yrs ago, left inner carotid, shamika filter. Past Anesthesia/Blood Transfusion Reactions: No Reported Reaction Additional Past Anesthesia/Blood Transfusion Reaction / Comment(s): Vertigo. Date of Last Stent Placement:: unk Past Psychological History: No Psychological Hx Reported Smoking Status: Never smoker Past Alcohol Use History: None Reported Past Drug Use History: None Reported - Past Family History Daughter(s) Family Medical History: Cancer Additional Family Medical History / Comment(s): Breast cancer. Medications and Allergies Home Medications Medication Instructions Recorded Confirmed Type Acetaminophen [Tylenol] 500 mg PO TID PRN 07/11/21 08/05/21 History Clopidogrel [Plavix] 75 mg PO DAILY 07/11/21 08/05/21 History Ezetimibe [Zetia] 10 mg PO HS 07/11/21 08/05/21 History Famotidine 20 mg PO BID 07/11/21 08/05/21 History Losartan [Cozaar] 50 mg PO BID 07/11/21 08/05/21 History Multivit-Min/Folic/Vit K/Lycop 1 tab PO DAILY 07/11/21 08/05/21 History [Men's Multivitamin Tablet] Primidone [Mysoline] 100 mg PO TID 07/11/21 08/05/21 History Rosuvastatin Calcium 40 mg PO HS 07/11/21 08/05/21 History atenoloL 37.5 mg PO DAILY 07/11/21 08/05/21 History Divalproex Sodium [Depakote] 125 mg PO HS 08/05/21 08/05/21 History Divalproex Sodium [Depakote] 500 mg PO HS 08/05/21 08/05/21 History Gabapentin 300 mg PO DAILY 08/05/21 08/05/21 History Lidocaine 5% Patch [Lidoderm] 1 patch TRANSDERM DAILY 08/05/21 08/05/21 History Meclizine [Antivert] 50 mg PO TID PRN 08/05/21 08/05/21 History [place]-3 Fatty Acids/Fish Oil [Fish 1 cap PO DAILY 08/05/21 08/05/21 History Oil 1,000 mg Softgel] Sildenafil Citrate 100 mg PO DIRECTED PRN 08/05/21 08/05/21 History Tamsulosin [Flomax] 0.4 mg PO DAILY 08/05/21 08/05/21 History methocarbamoL [Robaxin] 500 mg PO BID PRN 08/05/21 08/05/21 History traMADol HCL 50 mg PO QID PRN 08/05/21 08/05/21 History Allergies Allergy/AdvReac Type Severity Reaction Status Date / Time fluvastatin [From Lescol] [facility] Verified 08/05/21 22:12 janina lisinopril AdvReac Cough Verified 08/05/21 21:17 simvastatin [From Zocor] AdvReac Abdominal Verified 08/05/21 22:12 Pain [id number] Reductase AdvReac Abdominal Verified 08/05/21 21:17 Inhibitor Pain Physical Exam Vitals: Vital Signs Temp Pulse Pulse Resp BP BP Pulse Ox 08/06/21 01:22 65 18 138/69 98 08/05/21 23:42 63 18 132/65 96 08/05/21 22:11 71 18 141/67 95 08/05/21 19:39 68 18 140/79 96 08/05/21 18:44 98.4 F 66 18 158/78 97 Intake and Output 08/05/21 08/05/21 08/06/21 14:59 22:59 06:59 Other: # Voids 1 Weight 84.822 kg Constitutional: No acute distress, conversant, pleasant Eyes: Anicteric sclerae, moist conjunctiva, Pupils equal round reactive to light ENMT: NC/AT Oropharynx clear, no erythema, or exudates Neck: Supple, FROM, no masses, or JVD No carotid bruits No thyromegaly Lungs: Clear to auscultation Clear to percussion Normal respiratory effort, no accessory muscle use Cardiovascular: Heart regular in rate and rhythm, No murmurs, gallops, or rubs No peripheral edema Abdominal: Soft Nontender, no guarding, rebound or rigidity Abdomen moving with respiration Normoactive bowel sounds No hepatomegaly, No splenomegaly No palpable mass No abdominal wall hernia noted Skin: Normal temperature, tone, texture, turgor No induration No subcutaneous nodules No rash, lesions No ulcers Extremities: No digital cyanosis No clubbing Pedal pulses intact and symmetrical Radial pulses intact and symmetrical No calf tenderness Psychiatric: Alert and oriented to person, place and time Appropriate affect fair judgement Neuro Muscles Strength 5/5 in all 4 extremities Sensation to light touch grossly present throughout Cranial nerves II-XII grossly intact No focal sensory deficits Lymphatics: no palpable cervical or supraclavicular , or inguinal lymph nodes Results CBC & Chem 7: 08/05/21 19:22 08/05/21 19:22 Labs: Abnormal Lab Results - Last 24 Hours (Table) 08/05/21 Range/Units 19:22 ALT 62 H (4-49) U/L Thrombosis Risk Factor Assmnt - Choose All That Apply Any of the Below Risk Factors Present?: No Each Risk Factor Represents 2 Points: Age 61-74 years Thrombosis Risk Factor Assessment Total Risk Factor Score: 2 Thrombosis Risk Factor Assessment Level: Low Risk Assessment and Plan Assessment: palpitations, asymptomatic cardiac rehab nurse [facility] cardiology consult resume cardiac meds recent carotid artery stenting verify type of stent consider resuming plavix discuss with cardiology when its safe to stop plavix for surgical procedures h/o CAD s/p CABG left heart cath done 3 weeks ago , no significant disease chronic conditions hypertension , resume BP meds hyperlipidemia , resume statin full code DVT PPX heparin sc tid anticipated length of stay < 2 midnights
[2021-08-06 08:20] VITALS: BP 110/64; PULSE 61; TEMP 97.9
[2021-08-06] MEDS ORDERED: TAMSULOSIN 0.4 MG CAP.ER.24H PO SCH (09:00)
[2021-08-06] MEDS ORDERED: atenoloL 25 MG TAB PO SCH (09:00)
[2021-08-06] MEDS ORDERED: CLOPIDOGREL 75 MG TAB PO SCH (09:00)
[2021-08-06] MEDS ORDERED: GABAPENTIN 300 MG CAP PO SCH (09:00)
--- NOTE | 2021-08-06 12:01 | P.DS ---
Providers Date of admission: 08/05/21 20:26 Expected date of discharge: 08/06/21 Attending physician: Sally Miranda MD Consults: 08/05/21 20:54 Consult Physician Routine Consulting Provider: [facility] Consult Reason/Comments: Palpitations; chest tightness Do you want consulting provider notified?: Yes Primary care physician: [facility] Hospital Course: Discharge Diagnosis: Palpitations, patient seen and fully evaluated by cardiology recommending patient follow-up in their office outpatient in one week. Hospital Course: Patient is a very pleasant 75-year-old male with a past medical history of CAD with CABG, hypertension, and hyperlipidemia. He presented to the emergency department 08/05/21 with a chief complaint of palpitations. He underwent full evaluation in the emergency department. EKG completed showing normal sinus rhythm at 60 bpm with no noted T-wave or ST abnormalities. Chest x-ray revealing mild scarring or atelectasis in the right mid lung field otherwise normal findings with no acute cardiopulmonary process. CBC, coags, and CMP were unremarkable. D-dimer negative at 0.43. Troponin negative at less than 0.012 and TSH was normal at 1.150. Patient was admitted under services of consultation to cardiology. Troponins trended throughout the night all negative at less than 0.0123 draws. Throughout the night patient had a few episodes of what he described as fluttering and there were a couple PVCs noted on telemetry otherwise patient remained in normal sinus rhythm and denied having any other complaints including headache, lightheadedness, dizziness, chest pain, shortness of breath, dyspnea with exertion, nausea, or experiencing any numbness/tingling/weakness in his extremities.. Patient was evaluated by cardiology and they are recommending outpatient follow-up in their office in one week. Patient is medically stable and vital signs are unremarkable. Patient discharged home and to follow up outpatient with PCP and cardiology. Physical examination: Patient seen and examined at bedside. Vital signs reviewed and stable. General: Nontoxic, no distress and appears stated age. Derm: Skin warm and dry, normal coloration for ethnicity. Head: Atraumatic, normocephalic and symmetric. Eyes: EOMs intact, no lid lag, and anicteric sclera Mouth: no lip lesions, mucus membranes moist Cardiovascular: regular rate and rhythm with normal S1S2, no murmur, positive posterior tibial pulses bilaterally, and cap refill < 2 seconds. Lungs: Respirations even, regular, and unlabored on room air. Lungs CTA bilaterally, no rhonchi, no rales, no wheezing, and no accessory muscle usage. Abdominal: soft, nontender to palpation, no guarding, no appreciable organomegaly Ext: ROM intact. No gross muscle atrophy, no edema, no contractures Neuro: Speech clear, face symmetrical and CN II-XII grossly intact with no noted focal neuro deficits Psych: Alert and oriented to person, place, time, and situation. Appropriate and pleasant affect. A total of 31 minutes of time were spent preparing this complex discharge summary. Pt was discharged on 08/06/21 at 12 PM. I reviewed the documentation as provided by the NAKIA above, who is the original author of this note. I agree with the documented assessment and plan, with the following changes: None Patient Condition at Discharge: Stable Plan - Discharge Summary Discharge Rx Participant: No New Discharge Prescriptions: Continue Famotidine 20 mg PO BID Acetaminophen [Tylenol] 500 mg PO TID PRN PRN Reason: Pain traMADol HCL 50 mg PO QID PRN PRN Reason: Pain Gabapentin 300 mg PO DAILY Sildenafil Citrate 100 mg PO DIRECTED PRN PRN Reason: E.D. Divalproex Sodium [Depakote] 500 mg PO HS Ezetimibe [Zetia] 10 mg PO HS Losartan [Cozaar] 50 mg PO BID Clopidogrel [Plavix] 75 mg PO DAILY atenoloL 37.5 mg PO DAILY Rosuvastatin Calcium 40 mg PO HS Multivit-Min/Folic/Vit K/Lycop [Men's Multivitamin Tablet] 1 tab PO DAILY Primidone [Mysoline] 100 mg PO TID Divalproex Sodium [Depakote] 125 mg PO HS Meclizine [Antivert] 50 mg PO TID PRN PRN Reason: Vertigo methocarbamoL [Robaxin] 500 mg PO BID PRN PRN Reason: Muscle Spasm [place]-3 Fatty Acids/Fish Oil [Fish Oil 1,000 mg Softgel] 1 cap PO DAILY Tamsulosin [Flomax] 0.4 mg PO DAILY Lidocaine 5% Patch [Lidoderm 5% Patch] 1 patch TRANSDERM DAILY Discharge Medication List Acetaminophen [Tylenol] 500 mg PO TID PRN 07/11/21 [History] Clopidogrel [Plavix] 75 mg PO DAILY 07/11/21 [History] Ezetimibe [Zetia] 10 mg PO HS 07/11/21 [History] Famotidine 20 mg PO BID 07/11/21 [History] Losartan [Cozaar] 50 mg PO BID 07/11/21 [History] Multivit-Min/Folic/Vit K/Lycop [Men's Multivitamin Tablet] 1 tab PO DAILY 07/11/21 [History] Primidone [Mysoline] 100 mg PO TID 07/11/21 [History] Rosuvastatin Calcium 40 mg PO HS 07/11/21 [History] atenoloL 37.5 mg PO DAILY 07/11/21 [History] Divalproex Sodium [Depakote] 125 mg PO HS 08/05/21 [History] Divalproex Sodium [Depakote] 500 mg PO HS 08/05/21 [History] Gabapentin 300 mg PO DAILY 08/05/21 [History] Lidocaine 5% Patch [Lidoderm 5% Patch] 1 patch TRANSDERM DAILY 08/05/21 [History] Meclizine [Antivert] 50 mg PO TID PRN 08/05/21 [History] [place]-3 Fatty Acids/Fish Oil [Fish Oil 1,000 mg Softgel] 1 cap PO DAILY 08/05/21 [History] Sildenafil Citrate 100 mg PO DIRECTED PRN 08/05/21 [History] Tamsulosin [Flomax] 0.4 mg PO DAILY 08/05/21 [History] methocarbamoL [Robaxin] 500 mg PO BID PRN 08/05/21 [History] traMADol HCL 50 mg PO QID PRN 08/05/21 [History] Follow up Appointment(s)/Referral(s): Patricio Robert MD [STAFF PHYSICIAN] - 1 Week (please call for an appointment on Saturday morning follow up with Dr. Galeana ) [facility],Clinic [Primary Care Provider] - 1-2 days Patient Instructions/Handouts: Chest Pain (GEN), Heart Palpitations (GEN) Activity/Diet/Wound Care/Special Instructions: Activity: As tolerated. Take breaks as needed. Diet: Heart healthy and carb consistent diet. Avoid salts, or foods with hidden salts such as canned or boxed foods and frozen dinners. Extra salt makes your heart work harder and traps the fluid in your body for longer. Special Instructions: Take all of your medications as directed and remember to keep all of your doctor's appointments and follow-up as needed. Recommend discussing the possibility of a Holter monitor/event monitor with your child care associate at your follow-up appointment. Thank you for allowing us to participate in your care, it was truly a pleasure having you for our patient!!! I hope you have an amazing Memorial Day with your family, and a truly thank you for your service!!!!!!! Discharge Disposition: HOME SELF-CARE
[2021-08-06] MEDS: LOSARTAN 50 MG TAB PO SCH (12:07)
[2021-08-06] MEDS: FAMOTIDINE 20 MG TAB PO SCH (12:07)
[2021-08-06] MEDS: PRIMIDONE 50 MG TAB PO SCH (12:07)
[2021-08-06] MEDS: HEPARIN SODIUM,PORCINE/PF 5,000 UNIT/0.5 ML SYRINGE SQ SCH ×2 (12:08→12:13)
--- NOTE | 2021-08-06 12:47 | CONS ---
CONSULTATION CHIEF COMPLAINT: Palpitations. HISTORY OF PRESENT ILLNESS: Luisito is a 75-year-old gentleman with history of coronary artery disease status post CABG, history of carotid stenosis status post carotid stenting, chronic back pain, who presented to the hospital complaining of palpitations. He complains of having this sense of intermittent fluttering in the chest, came in and got admitted to hospital for the same. The patient had a cardiac catheterization 3 weeks ago, which did not reveal significant obstructive disease, but he had an embolus during the procedure that was managed uneventfully. He is on aspirin, Plavix and fish oil, which he stopped for his back procedure, but has since been restarted on this admission. The patient does not have chest pain, difficulty breathing, dizziness or syncope. There is no leg edema, PND or orthopnea. EKG does not reveal ischemic changes. I do not have any rhythm strips that show any cardiac arrhythmia and I am looking for them at this time. PAST MEDICAL HISTORY: Significant for coronary artery disease status post CABG, hypertension, dyslipidemia, chronic back pain and prostate disorder. PAST SURGICAL HISTORY: Significant CAD status post CABG and history of cardiac catheterization, angioplasty along with left carotid stenting. MEDICATIONS: At home include: Tramadol and Robaxin, atenolol, Flomax, Crestor, Mysoline, Antivert, Cozaar, Zetia, gabapentin, Depakote, Plavix. ALLERGIES: ALLERGY TO SIMVASTATIN, LISINOPRIL, PRAVASTATIN. FAMILY HISTORY: Negative for premature coronary artery disease. SOCIAL HISTORY: Negative for current smoking, EtOH abuse or drug abuse. REVIEW OF SYSTEMS: HEENT is unremarkable. Cardiac as described above. Respiratory as described above. GI negative. negative. Allergy/Immunology: Negative. Skin negative. Musculoskeletal significant for chronic back pain. Psychosocial negative. Endocrine negative. Derm negative. Constitutional: Negative. Oncological negative. [employer] negative. Rest of the system review is not relevant. EXAM: Comfortable at rest. Vital signs are stable. There is no jugular venous distention. Carotid upstroke is normal. There is no bruit. Chest exam reveals good air entry bilaterally. Heart exam reveals first and second heart sounds. No gallop. No murmur. No rub. Abdomen is soft, nontender. Examination of extremities did not reveal any edema. Peripheral pulses are felt. LABS: Labs show that 3 sets of troponins are negative. TSH is normal. Potassium is 4.4. Creatinine is 0.8. Hemoglobin is 14.3, platelet count is 187. EKG did not reveal acute ischemic changes. ASSESSMENT: 1. Palpitations. 2. Coronary artery disease status post CABG status post recent cardiac catheterization. 3. Carotid stenosis status post left carotid stenting. PLAN: The workup so far is benign and unremarkable. We have not documented any cardiac arrhythmia. Did not have myocardial infarction. The patient is symptom-free this morning. From cardiac standpoint, he is stable for discharge and arrange outpatient followup with Dr. Galeana. He is going to talk to him about the back surgery and the need to stop aspirin and Plavix prior. MMODL / IJN: [id number] /
== END 2021-08-06 15:45 | disposition home or self-care (01) ==
LOC: EC 18:38 → 6NMEDSUR 20:26
PROVIDERS: ADMIT Internal Medicine; ATTEND Internal Medicine
DX: R00.2 Palpitations (principal); R06.02 Shortness of breath; R07.89 Other chest pain; I25.10 Atherosclerotic heart disease of native coronary artery without angina pectoris; I49.3 Ventricular premature depolarization; I10 Essential (primary) hypertension; E78.5 Hyperlipidemia, unspecified; N40.0 Benign prostatic hyperplasia without lower urinary tract symptoms; I65.22 Occlusion and stenosis of left carotid artery; H91.90 Unspecified hearing loss, unspecified ear; G89.29 Other chronic pain; M25.561 Pain in right knee; M25.562 Pain in left knee; M54.9 Dorsalgia, unspecified; R42 Dizziness and giddiness; Z79.02 Long term (current) use of antithrombotics/antiplatelets; Z79.899 Other long term (current) drug therapy; Z88.8 Allergy status to other drugs, medicaments and biological substances; Z95.1 Presence of aortocoronary bypass graft; Z86.718 Personal history of other venous thrombosis and embolism; Z95.5 Presence of coronary angioplasty implant and graft; Z95.828 Presence of other vascular implants and grafts; Z80.3 Family history of malignant neoplasm of breast
CPT/HCPCS: 99285; 36415; 93005; 85379; 80188; 80053; 84443; 83735; 84484 ×2; 85025; 85610; 85730; 71046; G0378 ×2

== ENCOUNTER 2021-09-13 17:49 | Emergency (ER) | payer OTHER ==
[2021-09-13 18:19] VITALS: BP 119/64; PULSE 63; RESP 16; TEMP 97.4
[2021-09-13] MEDS ORDERED: KETOROLAC 15 MG/ML 1 ML VIAL IM STA (18:32)
[2021-09-13] MEDS ORDERED: diphenhydrAMINE 50 MG CAP PO STA (18:32)
[2021-09-13] MEDS ORDERED: methylPREDNISolone SOD SUCCI 125 MG/2 ML VIAL IM ONE (18:32)
--- NOTE | 2021-09-13 18:34 | ED ---
Skin/Abscess/FB HPI - General Chief complaint: Skin/Abscess/Foreign Body Stated complaint: bee stings Time Seen by Provider: 09/13/21 18:21 Source: patient Mode of arrival: ambulatory Limitations: no limitations - History of Present Illness Initial comments: 76-year-old male patient presents to the emergency department today for evaluation after being stung multiple times by bees. This occurred a couple of hours ago. Patient states he stepped on the nest and they attacked him. States he has multiple stings over has had face and bilateral arms. He denies any tongue or throat swelling. Denies any wheezing or shortness of breath. Denies abdominal pain. Denies taking any medication for his symptoms. States his right eye is swollen. Denies any blurred or double vision. Denies known the ALLERGY. - Related Data Home Medications Medication Instructions Recorded Confirmed Acetaminophen [Tylenol] 500 mg PO TID PRN 07/11/21 08/05/21 Clopidogrel [Plavix] 75 mg PO DAILY 07/11/21 08/05/21 Ezetimibe [Zetia] 10 mg PO HS 07/11/21 08/05/21 Famotidine 20 mg PO BID 07/11/21 08/05/21 Losartan [Cozaar] 50 mg PO BID 07/11/21 08/05/21 Multivit-Min/Folic/Vit K/Lycop 1 tab PO DAILY 07/11/21 08/05/21 [Men's Multivitamin Tablet] Primidone [Mysoline] 100 mg PO TID 07/11/21 08/05/21 Rosuvastatin Calcium 40 mg PO HS 07/11/21 08/05/21 atenoloL 37.5 mg PO DAILY 07/11/21 08/05/21 Divalproex Sodium [Depakote] 125 mg PO HS 08/05/21 08/05/21 Divalproex Sodium [Depakote] 500 mg PO HS 08/05/21 08/05/21 Gabapentin 300 mg PO DAILY 08/05/21 08/05/21 Lidocaine 5% Patch [Lidoderm 5% 1 patch TRANSDERM DAILY 08/05/21 08/05/21 Patch] Meclizine [Antivert] 50 mg PO TID PRN 08/05/21 08/05/21 [place]-3 Fatty Acids/Fish Oil [Fish 1 cap PO DAILY 08/05/21 08/05/21 Oil 1,000 mg Softgel] Sildenafil Citrate 100 mg PO DIRECTED PRN 08/05/21 08/05/21 Tamsulosin [Flomax] 0.4 mg PO DAILY 08/05/21 08/05/21 methocarbamoL [Robaxin] 500 mg PO BID PRN 08/05/21 08/05/21 traMADol HCL 50 mg PO QID PRN 08/05/21 08/05/21 Previous Rx's Medication Instructions Recorded predniSONE 50 mg PO DAILY #3 tab 09/13/21 Allergies Allergy/AdvReac Type Severity Reaction Status Date / Time fluvastatin [From Lescol] Allergy per [facility] Verified 09/13/21 18:19 janina lisinopril AdvReac Cough Verified 09/13/21 18:19 simvastatin [From Zocor] AdvReac Abdominal Verified 09/13/21 18:19 Pain [id number]-[id number] Reductase AdvReac Abdominal Verified 09/13/21 18:19 Inhibitor Pain Review of Systems ROS Statement: Those systems with pertinent positive or pertinent negative responses have been documented in the HPI. ROS Other: All systems not noted in ROS Statement are negative. Past Medical History Past Medical History: Hearing Disorder / Deafness, Hyperlipidemia, Hypertension, Musculoskeletal Disorder, Prostate Disorder Additional Past Medical History / Comment(s): Back and bilateral knee pain. Enlarged prostate. Vertigo. Hard of hearing, worse in left ear. History of Any Multi-Drug Resistant Organisms: None Reported Past Surgical History: Coronary Bypass/CABG, Heart Catheterization With Stent Additional Past Surgical History / Comment(s): Quadruple bypass 14 yrs ago, left inner carotid, shamika filter. Past Anesthesia/Blood Transfusion Reactions: No Reported Reaction Additional Past Anesthesia/Blood Transfusion Reaction / Comment(s): Vertigo. Date of Last Stent Placement:: unk Past Psychological History: No Psychological Hx Reported Smoking Status: Never smoker Past Alcohol Use History: None Reported Past Drug Use History: None Reported - Past Family History Daughter(s) Family Medical History: Cancer Additional Family Medical History / Comment(s): Breast cancer. General Exam Limitations: no limitations General appearance: alert, in no apparent distress, other (This is a well- developed, well-nourished adult male in no acute distress.) Eye exam: Present: normal appearance, PERRL, EOMI, conjunctival injection (Right), periorbital swelling (Right lower lid), other (There is right lower lid swelling, right conjunctival injection, chemosis noted to the right eye.). Absent: scleral icterus ENT exam: Present: normal exam, normal oropharynx, mucous membranes moist, other (Upper lip swelling) Respiratory exam: Present: normal lung sounds bilaterally. Absent: respiratory distress, wheezes, rales, rhonchi, stridor Cardiovascular Exam: Present: regular rate, normal rhythm, normal heart sounds. Absent: systolic murmur, diastolic murmur, rubs, gallop, clicks GI/Abdominal exam: Present: soft, normal bowel sounds. Absent: distended, tenderness, guarding, rebound, rigid Neurological exam: Present: alert, oriented X3, CN II-XII intact Psychiatric exam: Present: normal affect, normal mood Skin exam: Present: warm, dry, intact, normal color. Absent: rash Course Vital Signs 09/13/21 18:15 Temperature 97.4 F L Pulse Rate 63 Respiratory 16 Rate Blood Pressure 119/64 O2 Sat by Pulse 95 Oximetry Medical Decision Making - Medical Decision Making 76-year-old male percents to the emergency department for evaluation of multiple bee stings to the face, head, and arms. Physical examination did reveal right lower lid swelling, right conjunctival injection with chemosis. Upper lip swelling. He is in no respiratory distress, lung sounds are clear, abdomen is soft. He denies any abdominal pain. Denies taking any medication. He'll be given an injection of Solu-Medrol, Toradol for pain, and oral dose of Benadryl. We will discharge with 3 day prescription for prednisone. He already takes daily pepcid. Instructed to take Benadryl every 6 hours as needed. Instructed to apply cool compresses to the swollen painful areas. He is instructed to follow-up with primary care physician for recheck in 1-2 days. Return parameters were discussed in detail. He verbalizes understanding and agrees with this plan. My attending is Dr. Norwood. Disposition Clinical Impression: Bee sting Disposition: HOME SELF-CARE Condition: Good Instructions (If sedation given, give patient instructions): Insect Bite or Sting (ED) Additional Instructions: Take Benadryl every 6 hours as needed. Apply cool compresses over the swollen painful areas. Continue your Pepcid. Complete prescriptions as directed. Follow-up through primary care physician for recheck in 1-2 days. Return to the emergency department immediately for any new, worsening, or concerning symptoms. Prescriptions: predniSONE 50 mg PO DAILY #3 tab Is patient prescribed a controlled substance at d/c from ED?: No Referrals: [facility],Clinic [Primary Care Provider] - 1-2 days Time of Disposition: 18:34
== END 2021-09-13 19:12 | disposition home or self-care (01) ==
LOC: EC 17:49
DX: T63.441A Toxic effect of venom of bees, accidental (unintentional), initial encounter (principal); H02.842 Edema of right lower eyelid; I10 Essential (primary) hypertension; E78.5 Hyperlipidemia, unspecified; Z88.8 Allergy status to other drugs, medicaments and biological substances; Z79.899 Other long term (current) drug therapy
CPT/HCPCS: 99282; 96372; J2930; J1885

== ENCOUNTER 2022-01-06 03:38 | Emergency (ER) | payer OTHER, MEDICARE ==
[2022-01-06 03:45] VITALS: BP 165/74; PULSE 90; RESP 18; TEMP 99.9
[2022-01-06] MEDS ORDERED: IBUPROFEN 800 MG TAB PO STA (03:47)
[2022-01-06] MEDS ORDERED: ACETAMINOPHEN TAB 500 MG TAB PO STA (03:47)
--- NOTE | 2022-01-06 03:47 | ED ---
Fever HPI - General Chief Complaint: Fever Stated Complaint: Fever 102.7 Time Seen by Provider: 01/06/22 03:46 Source: patient, RN notes reviewed, old records reviewed Mode of arrival: wheelchair Limitations: no limitations - History of Present Illness Initial Comments: This is a 76-year-old male to the ER for patient that possibly have coronavirus exposure. No medical history takes no medications no shortness of breath MD Complaint: malaise -: hour(s) Temperature Source: subjective Context: sick contacts, multiple patients with similar symptoms Associated Symptoms: chills, rigors, myalgias Treatments Prior to Arrival: none - Related Data Home Medications Medication Instructions Recorded Confirmed Acetaminophen [Tylenol] 500 mg PO TID PRN 07/11/21 08/05/21 Clopidogrel [Plavix] 75 mg PO DAILY 07/11/21 08/05/21 Ezetimibe [Zetia] 10 mg PO HS 07/11/21 08/05/21 Famotidine 20 mg PO BID 07/11/21 08/05/21 Losartan [Cozaar] 50 mg PO BID 07/11/21 08/05/21 Multivit-Min/Folic/Vit K/Lycop 1 tab PO DAILY 07/11/21 08/05/21 [Men's Multivitamin Tablet] Primidone [Mysoline] 100 mg PO TID 07/11/21 08/05/21 Rosuvastatin Calcium 40 mg PO HS 07/11/21 08/05/21 atenoloL 37.5 mg PO DAILY 07/11/21 08/05/21 Divalproex Sodium [Depakote] 125 mg PO HS 08/05/21 08/05/21 Divalproex Sodium [Depakote] 500 mg PO HS 08/05/21 08/05/21 Gabapentin 300 mg PO DAILY 08/05/21 08/05/21 Lidocaine 5% Patch [Lidoderm 5% 1 patch TRANSDERM DAILY 08/05/21 08/05/21 Patch] Meclizine [Antivert] 50 mg PO TID PRN 08/05/21 08/05/21 [place]-3 Fatty Acids/Fish Oil [Fish 1 cap PO DAILY 08/05/21 08/05/21 Oil 1,000 mg Softgel] Sildenafil Citrate 100 mg PO DIRECTED PRN 08/05/21 08/05/21 Tamsulosin [Flomax] 0.4 mg PO DAILY 08/05/21 08/05/21 methocarbamoL [Robaxin] 500 mg PO BID PRN 08/05/21 08/05/21 traMADol HCL 50 mg PO QID PRN 08/05/21 08/05/21 Previous Rx's Medication Instructions Recorded predniSONE 50 mg PO DAILY #3 tab 09/13/21 Allergies Allergy/AdvReac Type Severity Reaction Status Date / Time fluvastatin [From Lescol] [facility] Verified 01/06/22 03:41 waverly lisinopril AdvReac Cough Verified 01/06/22 03:41 simvastatin [From Zocor] AdvReac Abdominal Verified 01/06/22 03:41 Pain [id number]-[id number]-[id number] Reductase AdvReac Abdominal Verified 01/06/22 03:41 Inhibitor Pain Review of Systems ROS Statement: Those systems with pertinent positive or pertinent negative responses have been documented in the HPI. ROS Other: All systems not noted in ROS Statement are negative. Past Medical History Past Medical History: Hearing Disorder / Deafness, Hyperlipidemia, Hypertension, Musculoskeletal Disorder, Prostate Disorder Additional Past Medical History / Comment(s): Back and bilateral knee pain. Enlarged prostate. Vertigo. Hard of hearing, worse in left ear. History of Any Multi-Drug Resistant Organisms: None Reported Past Surgical History: Coronary Bypass/CABG, Heart Catheterization With Stent Additional Past Surgical History / Comment(s): Quadruple bypass 14 yrs ago, left inner carotid, shamika filter. Past Anesthesia/Blood Transfusion Reactions: No Reported Reaction Additional Past Anesthesia/Blood Transfusion Reaction / Comment(s): Vertigo. Date of Last Stent Placement:: unk Past Psychological History: No Psychological Hx Reported Smoking Status: Never smoker Past Alcohol Use History: None Reported Past Drug Use History: None Reported - Past Family History Daughter(s) Family Medical History: Cancer Additional Family Medical History / Comment(s): Breast cancer. General Exam Limitations: no limitations General appearance: alert, in no apparent distress Head exam: Present: atraumatic, normocephalic, normal inspection Eye exam: Present: normal appearance, PERRL, EOMI. Absent: scleral icterus, conjunctival injection, periorbital swelling ENT exam: Present: normal exam, mucous membranes moist Neck exam: Present: normal inspection. Absent: tenderness, meningismus, lymphadenopathy Respiratory exam: Present: normal lung sounds bilaterally. Absent: respiratory distress, wheezes, rales, rhonchi, stridor Cardiovascular Exam: Present: regular rate, normal rhythm, normal heart sounds. Absent: systolic murmur, diastolic murmur, rubs, gallop, clicks GI/Abdominal exam: Present: soft, normal bowel sounds. Absent: distended, tenderness, guarding, rebound, rigid Extremities exam: Present: normal inspection, full ROM, normal capillary refill. Absent: tenderness, pedal edema, joint swelling, calf tenderness Back exam: Present: normal inspection Neurological exam: Present: alert, oriented X3, CN II-XII intact Psychiatric exam: Present: normal affect, normal mood Skin exam: Present: warm, dry, intact, normal color. Absent: rash Course Vital Signs 01/06/22 03:42 Temperature 99.9 F H Pulse Rate 90 Respiratory 18 Rate Blood Pressure 165/74 O2 Sat by Pulse 95 Oximetry - Reevaluation(s) Reevaluation #1: 01/06/22 05:08 Medical records reviewed Reevaluation #2: 01/06/22 05:08 Patient feels improved Reevaluation #3: 01/06/22 05:08 Patient informed of results and questions answered Medical Decision Making - Medical Decision Making 76 male to the emergency department for evaluation of fever bodyaches positive for coronavirus. Patient can be discharged home - Lab Data Lab Results 01/06/22 01/06/22 Range/Units 04:23 04:23 Coronavirus (PCR) Detected A (Not Detectd) Influenza Type A RNA Not Detected (Not Detectd) Influenza Type B (PCR) Not Detected (Not Detectd) - Radiology Data Radiology results: report reviewed (Chest x-ray negative for acute disease), i mage reviewed Disposition Clinical Impression: Fever, Coronavirus infection Disposition: HOME SELF-CARE Condition: Good Instructions (If sedation given, give patient instructions): Fever in Adults (ED), Coronavirus Disease 2019 (COVID-19) Is patient prescribed a controlled substance at d/c from ED?: No Referrals: [facility],Clinic [Primary Care Provider] - 1-2 days Time of Disposition: 05:10
--- NOTE | 2022-01-06 04:55 | XR ---
EXAMINATION TYPE: XR chest 1V portable DATE OF EXAM: 01/06/2022 COMPARISON: 08/05/2021 HISTORY: Cough TECHNIQUE: FINDINGS: Heart is normal. There is some linear density in the right mid lung. The left lung is fairl y clear. No heart failure. There are sternal wires. Bony thorax is intact. IMPRESSION: There is some scarring or subsegmental atelectasis in the right lung without much change. Normal hear t. No heart failure.
[2022-01-06] MEDS ORDERED: DEXAMETHASONE SOD PHOSPHATE 10 MG/ML 1 ML VIAL IM STA (05:05)
== END 2022-01-06 05:21 | disposition home or self-care (01) ==
LOC: EC 03:38
DX: R50.9 Fever, unspecified (principal); B34.2 Coronavirus infection, unspecified; E78.5 Hyperlipidemia, unspecified; I10 Essential (primary) hypertension; Z79.899 Other long term (current) drug therapy; Z20.822 Contact with and (suspected) exposure to COVID-19; Z88.8 Allergy status to other drugs, medicaments and biological substances; Z88.1 Allergy status to other antibiotic agents
CPT/HCPCS: 71045; 87502; 87635; 96372; 99284

== ENCOUNTER 2022-08-26 10:09 | Emergency (ER) | payer OTHER, MEDICARE ==
[2022-08-26 10:18] VITALS: RESP 18
--- NOTE | 2022-08-26 11:37 | XR ---
EXAMINATION TYPE: XR chest 2V DATE OF EXAM: 08/26/2022 11:21 AM COMPARISON: Chest radiographs from 01/06/2022 TECHNIQUE: XR chest 2V Frontal and lateral views of the chest. CLINICAL INDICATION:Male, 76 years old with history of Cough/pain; FINDINGS: Lungs/Pleura: There is no evidence of pleural effusion, focal consolidation, or pneumothorax. Pulmonary vascularity: Unremarkable. Heart/mediastinum: Cardiomediastinal silhouette is unremarkable. Musculoskeletal: No acute osseous pathology. Midline sternotomy wires are noted. IMPRESSION: 1. No acute cardiopulmonary disease process. 2. Single gaseous dilated loop of suspected small bowel in the upper abdomen. Correlate for ileus ve rsus other etiologies.
--- NOTE | 2022-08-26 13:33 | ED ---
URI HPI - General Chief Complaint: Upper Respiratory Infection Stated Complaint: Fever Time Seen by Provider: 08/26/22 10:30 Source: patient Mode of arrival: ambulatory Limitations: no limitations - History of Present Illness Initial Comments: 76-year-old male with past mental history of coronary artery disease with bypass surgery who presents to the emergency department reporting a cough and shortness of breath. States that his symptoms started last night. He has a lot of chest congestion however has a fairly dry cough. He had a fever and therefore took Tylenol last night around 11 and again this morning at 6. He denies sick contacts. No underlying lung condition such as asthma or COPD. He denies chest pain. No lower trauma swelling. No calf pain. No history of DVT or PE. He called his primary care office who recommended that he go into the emergency room for evaluation. He denies nausea, vomiting or diarrhea. No other alleviating, precipitating or modifying factors - Related Data Home Medications Medication Instructions Recorded Confirmed Acetaminophen [Tylenol] 500 mg PO TID PRN 07/11/21 08/31/22 Ezetimibe [Zetia] 10 mg PO HS 07/11/21 08/31/22 Famotidine 20 mg PO HS 07/11/21 08/31/22 Losartan [Cozaar] 50 mg PO BID 07/11/21 08/31/22 Multivit-Min/Folic/Vit K/Lycop 1 tab PO DAILY 07/11/21 08/31/22 [Men's Multivitamin Tablet] Primidone [Mysoline] 100 mg PO TID 07/11/21 08/31/22 Rosuvastatin Calcium 40 mg PO HS 07/11/21 08/31/22 Gabapentin 300 mg PO HS 08/05/21 08/31/22 Meclizine [Antivert] 50 mg PO TID PRN 08/05/21 08/31/22 Tamsulosin [Flomax] 0.4 mg PO DAILY 08/05/21 08/31/22 methocarbamoL [Robaxin] 500 mg PO BID PRN 08/05/21 08/31/22 traMADol HCL 50 mg PO QID PRN 08/05/21 08/31/22 Aspirin EC [Ecotrin Low Dose] 81 mg PO DAILY 08/31/22 08/31/22 Divalproex [Depakote] 250 mg PO BID 08/31/22 08/31/22 Metoprolol Tartrate [Lopressor] 50 mg PO HS 08/31/22 08/31/22 Nitroglycerin Sl Tabs [Nitrostat] 0.4 mg SUBLINGUAL Q5M PRN 08/31/22 08/31/22 Check-3/Dha/Epa/Fish Oil [Fish Oil 1 cap PO HS 08/31/22 08/31/22 1,000 mg Softgel] Sildenafil Citrate 50 mg PO DAILY PRN 08/31/22 08/31/22 amLODIPine [Norvasc] 5 mg PO HS 08/31/22 08/31/22 Previous Rx's Medication Instructions Recorded Albuterol Nebulized [Ventolin 2.5 mg INHALATION Q4H PRN #75 ml 08/31/22 Nebulized] Azithromycin [Zithromax Z Pack] 0 tab PO DIRECTED #6 tab 08/31/22 Allergies Allergy/AdvReac Type Severity Reaction Status Date / Time fluvastatin [From Lescol] [facility] Verified 08/31/22 13:05 janina lisinopril AdvReac Cough Verified 08/31/22 13:05 simvastatin [From Zocor] AdvReac Abdominal Verified 08/31/22 13:05 Pain Onpxzpc-CFA-WsT Reductase AdvReac Abdominal Verified 08/31/22 13:05 Inhibitor Pain Review of Systems ROS Statement: Those systems with pertinent positive or pertinent negative responses have been documented in the HPI. ROS Other: All systems not noted in ROS Statement are negative. Past Medical History Past Medical History: Hearing Disorder / Deafness, Hyperlipidemia, Hypertension, Musculoskeletal Disorder, Prostate Disorder Additional Past Medical History / Comment(s): Back and bilateral knee pain. Enlarged prostate. Vertigo. Hard of hearing, worse in left ear. History of Any Multi-Drug Resistant Organisms: None Reported Past Surgical History: Coronary Bypass/CABG, Heart Catheterization With Stent Additional Past Surgical History / Comment(s): Quadruple bypass 14 yrs ago, left inner carotid, shamika filter. Past Anesthesia/Blood Transfusion Reactions: No Reported Reaction Additional Past Anesthesia/Blood Transfusion Reaction / Comment(s): Vertigo. Date of Last Stent Placement:: unk Past Psychological History: No Psychological Hx Reported Smoking Status: Never smoker Past Alcohol Use History: None Reported Past Drug Use History: None Reported - Past Family History Daughter(s) Family Medical History: Cancer Additional Family Medical History / Comment(s): Breast cancer. General Exam Limitations: no limitations General appearance: alert, in no apparent distress Head exam: Present: atraumatic, normocephalic, normal inspection Eye exam: Present: normal appearance, PERRL, EOMI. Absent: scleral icterus, conjunctival injection, periorbital swelling ENT exam: Present: mucous membranes moist, other (nasal congestion. enlarged turbinates) Neck exam: Present: normal inspection. Absent: tenderness, meningismus, lymphadenopathy Respiratory exam: Present: normal lung sounds bilaterally. Absent: respiratory distress, wheezes, rales, rhonchi, stridor Cardiovascular Exam: Present: regular rate, normal rhythm, normal heart sounds. Absent: systolic murmur, diastolic murmur, rubs, gallop, clicks GI/Abdominal exam: Present: soft, normal bowel sounds. Absent: distended, tenderness, guarding, rebound, rigid Extremities exam: Present: normal inspection, full ROM, normal capillary refill. Absent: tenderness, pedal edema, joint swelling, calf tenderness Back exam: Present: normal inspection Neurological exam: Present: alert, oriented X3, CN II-XII intact Psychiatric exam: Present: normal affect, normal mood Skin exam: Present: warm, dry, intact, normal color. Absent: rash Course Vital Signs 08/26/22 08/26/22 08/26/22 10:16 10:26 13:57 Temperature 98.1 F Pulse Rate 60 54 L Respiratory 18 18 Rate Blood Pressure 124/69 O2 Sat by Pulse 96 Oximetry 08/26/22 08/26/22 14:06 14:20 Temperature 97.6 F Pulse Rate 60 53 L Respiratory 18 Rate Blood Pressure 119/61 O2 Sat by Pulse 95 Oximetry Medical Decision Making - Medical Decision Making Was pt. sent in by a medical professional or institution (, PA, BIG DATA SOLUTIONS ARCHITECT, urgent care, hospital, or long term...) When possible be specific @ -MI Did you speak to anyone other than the patient for history (EMS, parent, family, police, friend...)? What history was obtained from this source @ -daughter provides history Did you review nursing and triage notes (agree or disagree)? Why? @ -I reviewed and agree with nursing and triage notes Were old charts reviewed (outside hosp., previous admission, EMS record, old EKG, old radiological studies, urgent care reports/EKG's, long term records)? Report findings @ -no Differential Diagnosis (chest pain, altered mental status, abdominal pain women, abdominal pain men, vaginal bleeding, weakness, fever, dyspnea, syncope, headache, dizziness, GI bleed, back pain, seizure, CVA, palpatations, mental health, musculoskeletal)? @ -influenza, covid, pneumonia EKG interpreted by me (3pts min.). @ -none done X-rays interpreted by me (1pt min.). @ -yes - no acute process CT interpreted by me (1pt min.). @ -None done U/S interpreted by me (1pt. min.). @ -None done What testing was considered but not performed or refused? (CT, X-rays, U/S, labs)? Why? @ -EKG - patient refused What meds were considered but not given or refused? Why? @ -None Did you discuss the management of the patient with other professionals (professionals i.e. , PA, BIG DATA SOLUTIONS ARCHITECT, lab, RT, psych nurse, social work nurse, streets and buildings decorator, teacher, forest fire officer, rn case manager hospice)? Give summary @ -no Was smoking cessation discussed for >3mins.? @ -No Was critical care preformed (if so, how long)? @ -no Were there social determinants of health that impacted care today? How? (Homelessness, low income, unemployed, alcoholism, drug addiction, transportation, low edu. Level, literacy, decrease access to med. care, long-term, rehab)? @ -No Was there de-escalation of care discussed even if they declined (Discuss DNR or withdrawal of care, Hospice)? DNR status @ -No What co-morbidities impacted this encounter? (DM, HTN, Smoking, COPD, CAD, Cancer, CVA, ARF, Chemo, Hep., AIDS, mental health diagnosis, sleep apnea, morbid obesity)? @ -none Was patient admitted / discharged? Hospital course, mention meds given and route, prescriptions, significant lab abnormalities, going to OR and other pertinent info. @ -Upon arrival patient was placed into room 18. Thorough history and physical exam is performed. Viral swab is performed and is negative. Chest x-ray demonstrates no acute process. Patient is given 60 mg of prednisone in the emergency department as well as a DuoNeb breathing treatment. He'll be discharged home with albuterol inhaler and 20 mg of prednisone to be taken twice daily. He'll be given a prescription for doxycycline for which she should start taking in 48-72 hours should his symptoms worsen. Continue with Tylenol for fevers and return for any new or worsening symptoms. He is agreeable to this plan and discharged home in stable condition Undiagnosed new problem with uncertain prognosis? @ -yes Drug Therapy requiring intensive monitoring for toxicity (Heparin, Nitro, Insulin, Cardizem)? @ -No Were any procedures done? @ -No Diagnosis/symptom? @ -acute cough, acute uri Acute, or Chronic, or Acute on Chronic? @ -acute Uncomplicated (without systemic symptoms) or Complicated (systemic symptoms)? @ -complicated Side effects of treatment? @ -allergic reaction Exacerbation, Progression, or Severe Exacerbation? @ -No Poses a threat to life or bodily function? How? (Chest pain, [place], [place], pneumonia, PE, COPD, DKA, ARF, appy, cholecystitis, CVA, Diverticulitis, Homicidal, Suicidal, threat to staff... and all critical care pts) @ -no - Lab Data Lab Results 08/26/22 Range/Units 11:28 Influenza Type A (PCR) Not Detected (Not Detectd) Influenza Type B (PCR) Not Detected (Not Detectd) RSV (PCR) Not Detected (Not Detectd) SARS-CoV-2 (PCR) Not Detected (Not Detectd) Disposition Clinical Impression: Cough Disposition: HOME SELF-CARE Condition: Stable Instructions (If sedation given, give patient instructions): Upper Respiratory Infection (ED) Additional Instructions: Take the steroids twice daily. Use the inhaler every 4 hours. Follow-up with your doctor in 2 to 4 days. Should your cough not improve in 48-72 hours, start the antibiotic. Return for any new or worsening symptoms Is patient prescribed a controlled substance at d/c from ED?: No Referrals: [facility],Clinic [Primary Care Provider] - 1-2 days Time of Disposition: 13:41
[2022-08-26] MEDS ORDERED: IPRATROPIUM-ALBUTEROL 3 ML NEB INHALATION STA (13:38)
[2022-08-26] MEDS ORDERED: predniSONE 20 MG TAB PO STA (13:39)
[2022-08-26 14:21] VITALS: BP 119/61; PULSE 53; TEMP 97.6
== END 2022-08-26 14:21 | disposition home or self-care (01) ==
LOC: EC 10:09
DX: R05.9 Cough, unspecified (principal); E78.5 Hyperlipidemia, unspecified; I10 Essential (primary) hypertension; Z79.899 Other long term (current) drug therapy; Z79.82 Long term (current) use of aspirin; Z88.8 Allergy status to other drugs, medicaments and biological substances; Z88.6 Allergy status to analgesic agent; Z20.822 Contact with and (suspected) exposure to COVID-19
CPT/HCPCS: 94640; 87636; 71046; 99284; J7512

== ENCOUNTER 2022-08-31 10:14 | Emergency (ER) | payer OTHER, MEDICARE ==
[2022-08-31] MEDS ORDERED: IPRATROPIUM-ALBUTEROL 3 ML NEB INHALATION STA (11:00)
[2022-08-31 11:26] LABS: Basophils # (A) 0.1 k/uL (0-0.2); Basophils % (A) 1 %; Eosinophils # (A) 0.3 k/uL (0-0.7); Eosinophils % (A) 2 %; HCT 44.5 % (39.0-53.0); HGB 14.7 gm/dL (13.0-17.5); Lymphocytes # (A) 1.9 k/uL (1.0-4.8); Lymphocytes % (A) 14 %; MCH 30.9 pg (25.0-35.0); MCV 93.8 fL (80.0-100.0); Mean Platelet Volume 9.4; Monocytes % (A) 8 %; Neutrophils # (A) 10.2 k/uL (1.3-7.7); Neutrophils % (A) 75 %; Platelet Count 189 k/uL (150-450); RBC 4.74 m/uL (4.30-5.90); RDW 12.7 % (11.5-15.5); WBC 13.6 k/uL (3.8-10.6)
--- NOTE | 2022-08-31 11:27 | XR ---
EXAMINATION TYPE: XR chest 2V DATE OF EXAM: 08/31/2022 COMPARISON: 08/26/2022 HISTORY: 76-year-old male with shortness of breath and cough TECHNIQUE: PA and lateral views FINDINGS: Heart normal size. Median sternotomy wires are present with post-CABG clips in the mediastinum. No co nsolidation or pleural effusion. Stable curvilinear density right midlung suggesting scarring. IMPRESSION: Chronic changes without acute cardiopulmonary process.
[2022-08-31 11:50] LABS: ALT 131 U/L (4-49); AST 68 U/L (17-59); African American GFR (CKD) >90 (>60 ml/min/1.73 sqM); Albumin 3.7 g/dL (3.5-5.0); Alkaline Phosphatase 49 U/L (38-126); Anion Gap 8 mmol/L; Blood Urea Nitrogen 25 mg/dL (9-20); Calcium 9.1 mg/dL (8.4-10.2); Carbon Dioxide 28 mmol/L (22-30); Chloride 100 mmol/L (98-107); Glucose 90 mg/dL (74-99); Non-African American GFR(CKD) >90 (>60 ml/min/1.73 sqM); Potassium 4.5 mmol/L (3.5-5.1); Sodium 136 mmol/L (137-145); Total Bilirubin 0.5 mg/dL (0.2-1.3); Total Protein 6.3 g/dL (6.3-8.2)
[2022-08-31 11:56] LABS: INR 1.1 (<1.2); Partial Thromboplastin Time 24.3 sec (22.0-30.0); Prothrombin Time 11.6 sec (9.0-12.0)
--- NOTE | 2022-08-31 12:48 | ED ---
URI HPI - General Chief Complaint: Upper Respiratory Infection Stated Complaint: SOB,chest congestion Time Seen by Provider: 08/31/22 10:34 Source: patient, RN notes reviewed Mode of arrival: ambulatory Limitations: no limitations - History of Present Illness Initial Comments: 76 year old male presents to the emergency department for chief complaint of nonproductive cough and chest congestion x1 week. He states that he came in last week for the same symptoms and reports no improvement. He has been on doxycycline, prednisone, albuterol inhaler. He states that he had a fever at that time but has not had one since last Saturday. He is reporting no other symptoms at this time. Denies leg swelling. Patient has a shamika filter in place for presumed DVT in the past but was found to not have DVT. Patient is a never smoker. No history of COPD or asthma. He denies chest pain, significant shortness of breath. Denies nausea, vomiting, diarrhea. - Related Data Home Medications Medication Instructions Recorded Confirmed Acetaminophen [Tylenol] 500 mg PO TID PRN 07/11/21 08/31/22 Ezetimibe [Zetia] 10 mg PO HS 07/11/21 08/31/22 Famotidine 20 mg PO HS 07/11/21 08/31/22 Losartan [Cozaar] 50 mg PO BID 07/11/21 08/31/22 Multivit-Min/Folic/Vit K/Lycop 1 tab PO DAILY 07/11/21 08/31/22 [Men's Multivitamin Tablet] Primidone [Mysoline] 100 mg PO TID 07/11/21 08/31/22 Rosuvastatin Calcium 40 mg PO HS 07/11/21 08/31/22 Gabapentin 300 mg PO HS 08/05/21 08/31/22 Meclizine [Antivert] 50 mg PO TID PRN 08/05/21 08/31/22 Tamsulosin [Flomax] 0.4 mg PO DAILY 08/05/21 08/31/22 methocarbamoL [Robaxin] 500 mg PO BID PRN 08/05/21 08/31/22 traMADol HCL 50 mg PO QID PRN 08/05/21 08/31/22 Aspirin EC [Ecotrin Low Dose] 81 mg PO DAILY 08/31/22 08/31/22 Divalproex [Depakote] 250 mg PO BID 08/31/22 08/31/22 Metoprolol Tartrate [Lopressor] 50 mg PO HS 08/31/22 08/31/22 Nitroglycerin Sl Tabs [Nitrostat] 0.4 mg SUBLINGUAL Q5M PRN 08/31/22 08/31/22 [place]-3/Dha/Epa/Fish Oil [Fish Oil 1 cap PO HS 08/31/22 08/31/22 1,000 mg Softgel] Sildenafil Citrate 50 mg PO DAILY PRN 08/31/22 08/31/22 amLODIPine [Norvasc] 5 mg PO HS 08/31/22 08/31/22 Previous Rx's Medication Instructions Recorded Albuterol Nebulized [Ventolin 2.5 mg INHALATION Q4H PRN #75 ml 08/31/22 Nebulized] Azithromycin [Zithromax Z Pack] 0 tab PO DIRECTED #6 tab 08/31/22 Allergies Allergy/AdvReac Type Severity Reaction Status Date / Time fluvastatin [From Lescol] [facility] Verified 08/31/22 13:05 janina lisinopril AdvReac Cough Verified 08/31/22 13:05 simvastatin [From Zocor] AdvReac Abdominal Verified 08/31/22 13:05 Pain Okrblmf-NIV-ToS Reductase AdvReac Abdominal Verified 08/31/22 13:05 Inhibitor Pain Review of Systems ROS Statement: Those systems with pertinent positive or pertinent negative responses have been documented in the HPI. ROS Other: All systems not noted in ROS Statement are negative. Past Medical History Past Medical History: Hearing Disorder / Deafness, Hyperlipidemia, Hypertension, Musculoskeletal Disorder, Prostate Disorder Additional Past Medical History / Comment(s): Back and bilateral knee pain. Enlarged prostate. Vertigo. Hard of hearing, worse in left ear. History of Any Multi-Drug Resistant Organisms: None Reported Past Surgical History: Coronary Bypass/CABG, Heart Catheterization With Stent Additional Past Surgical History / Comment(s): Quadruple bypass 14 yrs ago, left inner carotid, shamika filter. Past Anesthesia/Blood Transfusion Reactions: No Reported Reaction Additional Past Anesthesia/Blood Transfusion Reaction / Comment(s): Vertigo. Date of Last Stent Placement:: unk Past Psychological History: No Psychological Hx Reported Smoking Status: Never smoker Past Alcohol Use History: None Reported Past Drug Use History: None Reported - Past Family History Daughter(s) Family Medical History: Cancer Additional Family Medical History / Comment(s): Breast cancer. General Exam Limitations: no limitations General appearance: alert, in no apparent distress Head exam: Present: atraumatic, normocephalic, normal inspection Eye exam: Present: normal appearance, PERRL, EOMI. Absent: scleral icterus, conjunctival injection, periorbital swelling ENT exam: Present: normal exam, mucous membranes moist Neck exam: Present: normal inspection. Absent: tenderness, meningismus, lymphadenopathy Respiratory exam: Present: rhonchi (bilateral ). Absent: normal lung sounds bilaterally, respiratory distress, wheezes, rales, stridor, chest wall tenderness, accessory muscle use Cardiovascular Exam: Present: regular rate, normal rhythm, normal heart sounds. Absent: systolic murmur, diastolic murmur, rubs, gallop, clicks GI/Abdominal exam: Present: soft, normal bowel sounds. Absent: distended, tenderness, guarding, rebound, rigid Extremities exam: Present: normal inspection, full ROM, normal capillary refill. Absent: tenderness, pedal edema, joint swelling, calf tenderness Back exam: Present: normal inspection Neurological exam: Present: alert, oriented X3, CN II-XII intact Psychiatric exam: Present: normal affect, normal mood Skin exam: Present: warm, dry, intact, normal color. Absent: rash Course Vital Signs 08/31/22 08/31/22 08/31/22 10:23 11:23 11:33 Temperature 98.2 F Pulse Rate 51 L 68 68 Respiratory 18 Rate Blood Pressure 161/78 O2 Sat by Pulse 97 Oximetry 08/31/22 15:09 Temperature 98.6 F Pulse Rate 50 L Respiratory 19 Rate Blood Pressure 129/66 O2 Sat by Pulse 98 Oximetry Medical Decision Making - Medical Decision Making Was pt. sent in by a medical professional or institution (, PA, CCU NURSE, urgent care, hospital, or half-way...) When possible be specific @ -No Did you speak to anyone other than the patient for history (EMS, parent, family, police, friend...)? What history was obtained from this source @ -No Did you review nursing and triage notes (agree or disagree)? Why? @ -I reviewed and agree with nursing and triage notes Were old charts reviewed (outside hosp., previous admission, EMS record, old EKG, old radiological studies, urgent care reports/EKG's, half-way records)? Report findings @ -Records from prior visit last week were reviewed including chest x-ray, cepheid Differential Diagnosis (chest pain, altered mental status, abdominal pain women, abdominal pain men, vaginal bleeding, weakness, fever, dyspnea, syncope, headache, dizziness, GI bleed, back pain, seizure, CVA, palpatations, mental health, musculoskeletal)? @ -Differential Dyspnea: Coronary syndrome, arrhythmia, tamponade, asthma, COPD, pulmonary embolism, pneumonia, pneumothorax, pulmonary effusion, anaphylaxis, diabetic ketoacidosis, flailed chest, pulmonary contusion, diaphragmatic rupture, anemia, neuromuscular, this is not meant to be an all-inclusive list. EKG interpreted by me (3pts min.). @ -EKG at 1031 showed sinus bradycardia rate 50, WI 142, QRS 105 X-rays interpreted by me (1pt min.). @ -Chest x-ray showed chronic changes with no acute process CT interpreted by me (1pt min.). @ -None done U/S interpreted by me (1pt. min.). @ -None done What testing was considered but not performed or refused? (CT, X-rays, U/S, labs)? Why? @ -None What meds were considered but not given or refused? Why? @ -None Did you discuss the management of the patient with other professionals (professionals i.e. , PA, CCU NURSE, lab, RT, psych nurse, long term care social worker, inspector hairspring, teacher, driver's license reviewing officer, telephonic case manager)? Give summary @ -discussed with telephonic case manager, patient was able to get a nebulizer for home and [facility] Was smoking cessation discussed for >3mins.? @ -No Was critical care preformed (if so, how long)? @ -No Were there social determinants of health that impacted care today? How? (Homelessness, low income, unemployed, alcoholism, drug addiction, tra nsportation, low edu. Level, literacy, decrease access to med. care, custodial, rehab)? @ -No Was there de-escalation of care discussed even if they declined (Discuss DNR or withdrawal of care, Hospice)? DNR status @ -No What co-morbidities impacted this encounter? (DM, HTN, Smoking, COPD, CAD, Cancer, CVA, ARF, Chemo, Hep., AIDS, mental health diagnosis, sleep apnea, morbid obesity)? @ -None Was patient admitted / discharged? Hospital course, mention meds given and route, prescriptions, significant lab abnormalities, going to OR and other pertinent info. @ -Discharged. Patient is well-appearing 76-year-old male who presented to emergency department with chief complaint of persistent cough 1 week. Denies recent fever, nasal congestion, significant shortness of breath, chest pain. EKG at 1031 showed sinus bradycardia rate 50, chest x-ray showed chronic changes with no acute process; CBC showed CBC 13.6 likely due to current steroid, hemoglobin 14.7; CMP showed sodium 136, potassium 4.5, creatinine 0.7, lactic 0.6, BNP 452. Patient was given a DuoNeb treatment and reports improvement in his cough. Case is discussed with case management and patient was able to receive nebulizer for home. Prescription was sent for albuterol for the nebulizer and a Z-[place]. [facility]. Case discussed with my attending, Dr. Norwood Undiagnosed new problem with uncertain prognosis? @ -No Drug Therapy requiring intensive monitoring for toxicity (Heparin, Nitro, Insulin, Cardizem)? @ -No Were any procedures done? @ -No Diagnosis/symptom? @ -Cough Acute, or Chronic, or Acute on Chronic? @ -acute Uncomplicated (without systemic symptoms) or Complicated (systemic symptoms)? @ -uncomplicated Side effects of treatment? @ -No Exacerbation, Progression, or Severe Exacerbation? @ -No Poses a threat to life or bodily function? How? (Chest pain, [place], [place], pneumonia, PE, COPD, DKA, ARF, appy, cholecystitis, CVA, Diverticulitis, Homicidal, Suicidal, threat to staff... and all critical care pts) @ -No - Lab Data Result diagrams: 08/31/22 11:15 08/31/22 11:15 Lab Results 08/31/22 08/31/22 08/31/22 Range/Units 11:15 11:15 11:15 WBC 13.6 H (3.8-10.6) k/uL RBC 4.74 (4.30-5.90) m/uL Hgb 14.7 (13.0-17.5) gm/dL Hct 44.5 (39.0-53.0) % MCV 93.8 (80.0-100.0) fL MCH 30.9 (25.0-35.0) pg MCHC 33.0 (31.0-37.0) g/dL RDW 12.7 (11.5-15.5) % Plt Count 189 (150-450) k/uL MPV 9.4 Neutrophils % 75 % Lymphocytes % 14 % Monocytes % 8 % Eosinophils % 2 % Basophils % 1 % Neutrophils # 10.2 H (1.3-7.7) k/uL Lymphocytes # 1.9 (1.0-4.8) k/uL Monocytes # 1.0 (0-1.0) k/uL Eosinophils # 0.3 (0-0.7) k/uL Basophils # 0.1 (0-0.2) k/uL PT 11.6 (9.0-12.0) sec INR 1.1 (<1.2) APTT 24.3 (22.0-30.0) sec Sodium 136 L (137-145) mmol/L Potassium 4.5 (3.5-5.1) mmol/L Chloride 100 (98-107) mmol/L Carbon Dioxide 28 (22-30) mmol/L Anion Gap 8 mmol/L BUN 25 H (9-20) mg/dL Creatinine 0.70 (0.66-1.25) mg/dL Est GFR (CKD-EPI)AfAm >90 (>60 ml/min/1.73 sqM) Est GFR (CKD-EPI)NonAf >90 (>60 ml/min/1.73 sqM) Glucose 90 (74-99) mg/dL Plasma Lactic Acid Jt (0.7-2.0) mmol/L Calcium 9.1 (8.4-10.2) mg/dL Total Bilirubin 0.5 (0.2-1.3) mg/dL AST 68 H (17-59) U/L ALT 131 H (4-49) U/L Alkaline Phosphatase 49 (38-126) U/L NT-Pro-B Natriuret Pep pg/mL Total Protein 6.3 (6.3-8.2) g/dL Albumin 3.7 (3.5-5.0) g/dL 08/31/22 08/31/22 Range/Units 11:15 11:15 WBC (3.8-10.6) k/uL RBC (4.30-5.90) m/uL Hgb (13.0-17.5) gm/dL Hct (39.0-53.0) % MCV (80.0-100.0) fL MCH (25.0-35.0) pg MCHC (31.0-37.0) g/dL RDW (11.5-15.5) % Plt Count (150-450) k/uL MPV Neutrophils % % Lymphocytes % % Monocytes % % Eosinophils % % Basophils % % Neutrophils # (1.3-7.7) k/uL Lymphocytes # (1.0-4.8) k/uL Monocytes # (0-1.0) k/uL Eosinophils # (0-0.7) k/uL Basophils # (0-0.2) k/uL PT (9.0-12.0) sec INR (<1.2) APTT (22.0-30.0) sec Sodium (137-145) mmol/L Potassium (3.5-5.1) mmol/L Chloride (98-107) mmol/L Carbon Dioxide (22-30) mmol/L Anion Gap mmol/L BUN (9-20) mg/dL Creatinine (0.66-1.25) mg/dL Est GFR (CKD-EPI)AfAm (>60 ml/min/1.73 sqM) Est GFR (CKD-EPI)NonAf (>60 ml/min/1.73 sqM) Glucose (74-99) mg/dL Plasma Lactic Acid Jt 0.6 L (0.7-2.0) mmol/L Calcium (8.4-10.2) mg/dL Total Bilirubin (0.2-1.3) mg/dL AST (17-59) U/L ALT (4-49) U/L Alkaline Phosphatase (38-126) U/L NT-Pro-B Natriuret Pep 452 pg/mL Total Protein (6.3-8.2) g/dL Albumin (3.5-5.0) g/dL Disposition Clinical Impression: Cough Disposition: HOME SELF-CARE Condition: Stable Instructions (If sedation given, give patient instructions): Acute Cough (ED) Additional Instructions: Continue steroids and albuterol inhaler. Take new antibiotic to completion. Return to the emergency department for new or worsening symptoms. Prescriptions: Albuterol Nebulized [Ventolin Nebulized] 2.5 mg INHALATION Q4H PRN #75 ml PRN Reason: difficulty in breathing Azithromycin [Zithromax Z Pack] 0 tab PO DIRECTED #6 tab Is patient prescribed a controlled substance at d/c from ED?: No Referrals: [facility],Clinic [Primary Care Provider] - 09/06/22 1:00 pm (Appointment is now in office. Please arrive 15mins prior to your appointment. ) Time of Disposition: 13:05
[2022-08-31 15:11] VITALS: BP 129/66; PULSE 50; RESP 19; TEMP 98.6
== END 2022-08-31 15:11 | disposition home or self-care (01) ==
LOC: EC 10:14
DX: R05.9 Cough, unspecified (principal); R00.1 Bradycardia, unspecified; I10 Essential (primary) hypertension; E78.5 Hyperlipidemia, unspecified; Z79.82 Long term (current) use of aspirin; Z79.899 Other long term (current) drug therapy; Z88.8 Allergy status to other drugs, medicaments and biological substances
CPT/HCPCS: 36415; 71046; 80053; 83605; 83880; 85025; 85610; 85730; 94640; 99285

== ENCOUNTER 2022-10-16 21:30 | Emergency (ER) | payer MEDICARE, OTHER ==
[2022-10-16 21:36] VITALS: RESP 18
[2022-10-16 22:06] LABS: Basophils # (A) 0.1 k/uL (0-0.2); Basophils % (A) 1 %; Eosinophils # (A) 0.3 k/uL (0-0.7); Eosinophils % (A) 5 %; HCT 41.6 % (39.0-53.0); HGB 14.4 gm/dL (13.0-17.5); Lymphocytes # (A) 1.9 k/uL (1.0-4.8); Lymphocytes % (A) 27 %; MCH 32.1 pg (25.0-35.0); MCHC 34.6 g/dL (31.0-37.0); MCV 92.9 fL (80.0-100.0); Mean Platelet Volume 10.7; Monocytes # (A) 0.5 k/uL (0-1.0); Monocytes % (A) 8 %; Neutrophils # (A) 4.1 k/uL (1.3-7.7); Neutrophils % (A) 58 %; Platelet Count 119 k/uL (150-450); RBC 4.48 m/uL (4.30-5.90); RDW 13.2 % (11.5-15.5)
[2022-10-16 22:18] LABS: INR 1.1 (<1.2); Partial Thromboplastin Time 25.4 sec (22.0-30.0); Prothrombin Time 11.8 sec (9.0-12.0)
[2022-10-16 22:21] LABS: ALT 67 U/L (4-49); AST 50 U/L (17-59); African American GFR (CKD) 61 (>60 ml/min/1.73 sqM); Albumin 4.3 g/dL (3.5-5.0); Alkaline Phosphatase 54 U/L (38-126); Anion Gap 11 mmol/L; Blood Urea Nitrogen 25 mg/dL (9-20); Calcium 9.4 mg/dL (8.4-10.2); Carbon Dioxide 26 mmol/L (22-30); Chloride 103 mmol/L (98-107); Glucose 103 mg/dL (74-99); Magnesium 2.3 mg/dL (1.6-2.3); Non-African American GFR(CKD) 53 (>60 ml/min/1.73 sqM); Potassium 4.6 mmol/L (3.5-5.1); Sodium 140 mmol/L (137-145); Total Bilirubin 0.4 mg/dL (0.2-1.3); Total Protein 7.2 g/dL (6.3-8.2)
--- NOTE | 2022-10-16 22:30 | ED ---
General Adult HPI - General Chief complaint: Chest Pain Stated complaint: Chest Pain Time Seen by Provider: 10/16/22 21:43 Source: patient, RN notes reviewed, old records reviewed Mode of arrival: ambulatory Limitations: no limitations - History of Present Illness Initial comments: 77-year-old male presenting for evaluation of a numb sensation in the center of his chest which travels from the center of the chest into his bilateral arms. This occurred prior to arrival and had resolved time my initial evaluation. He would not call this a tightness or a chest pain specifically. He does have history of coronary artery disease status post bypass graft approximately 14 years ago. He has no active chest pain. No numbness in the extremities. No vo miting. No fever. No difficulty breathing. - Related Data Home Medications Medication Instructions Recorded Confirmed Acetaminophen [Tylenol] 500 mg PO TID PRN 07/11/21 08/31/22 Ezetimibe [Zetia] 10 mg PO HS 07/11/21 08/31/22 Famotidine 20 mg PO HS 07/11/21 08/31/22 Losartan [Cozaar] 50 mg PO BID 07/11/21 08/31/22 Multivit-Min/Folic/Vit K/Lycop 1 tab PO DAILY 07/11/21 08/31/22 [Men's Multivitamin Tablet] Primidone [Mysoline] 100 mg PO TID 07/11/21 08/31/22 Rosuvastatin Calcium 40 mg PO HS 07/11/21 08/31/22 Gabapentin 300 mg PO HS 08/05/21 08/31/22 Meclizine [Antivert] 50 mg PO TID PRN 08/05/21 08/31/22 Tamsulosin [Flomax] 0.4 mg PO DAILY 08/05/21 08/31/22 methocarbamoL [Robaxin] 500 mg PO BID PRN 08/05/21 08/31/22 traMADol HCL 50 mg PO QID PRN 08/05/21 08/31/22 Aspirin EC [Ecotrin Low Dose] 81 mg PO DAILY 08/31/22 08/31/22 Divalproex [Depakote] 250 mg PO BID 08/31/22 08/31/22 Metoprolol Tartrate [Lopressor] 50 mg PO HS 08/31/22 08/31/22 Nitroglycerin Sl Tabs [Nitrostat] 0.4 mg SUBLINGUAL Q5M PRN 08/31/22 08/31/22 Ruth-3/Dha/Epa/Fish Oil [Fish Oil 1 cap PO HS 08/31/22 08/31/22 1,000 mg Softgel] Sildenafil Citrate 50 mg PO DAILY PRN 08/31/22 08/31/22 amLODIPine [Norvasc] 5 mg PO HS 08/31/22 08/31/22 Previous Rx's Medication Instructions Recorded Albuterol Nebulized [Ventolin 2.5 mg INHALATION Q4H PRN #75 ml 08/31/22 Nebulized] Azithromycin [Zithromax Z Pack] 0 tab PO DIRECTED #6 tab 08/31/22 Allergies Allergy/AdvReac Type Severity Reaction Status Date / Time fluvastatin [From Lescol] Allergy per [facility] Verified 08/31/22 13:05 janina lisinopril AdvReac Cough Verified 08/31/22 13:05 simvastatin [From Zocor] AdvReac Abdominal Verified 08/31/22 13:05 Pain Sjokuhv-BOP-EhU Reductase AdvReac Abdominal Verified 08/31/22 13:05 Inhibitor Pain Review of Systems ROS Statement: Those systems with pertinent positive or pertinent negative responses have been documented in the HPI. ROS Other: All systems not noted in ROS Statement are negative. Past Medical History Past Medical History: Hearing Disorder / Deafness, Hyperlipidemia, Hypertension, Musculoskeletal Disorder, Prostate Disorder Additional Past Medical History / Comment(s): Back and bilateral knee pain. Enlarged prostate. Vertigo. Hard of hearing, worse in left ear. History of Any Multi-Drug Resistant Organisms: None Reported Past Surgical History: Coronary Bypass/CABG, Heart Catheterization With Stent Additional Past Surgical History / Comment(s): Quadruple bypass 14 yrs ago, left inner carotid, shamika filter. Past Anesthesia/Blood Transfusion Reactions: No Reported Reaction Additional Past Anesthesia/Blood Transfusion Reaction / Comment(s): Vertigo. Date of Last Stent Placement:: unk Past Psychological History: No Psychological Hx Reported Smoking Status: Never smoker Past Alcohol Use History: None Reported Past Drug Use History: None Reported - Past Family History Daughter(s) Family Medical History: Cancer Additional Family Medical History / Comment(s): Breast cancer. General Exam Limitations: no limitations General appearance: alert, in no apparent distress Head exam: Present: atraumatic, normocephalic Eye exam: Present: normal appearance, PERRL Neck exam: Present: normal inspection Respiratory exam: Present: normal lung sounds bilaterally. Absent: respiratory distress, wheezes Cardiovascular Exam: Present: regular rate, normal rhythm GI/Abdominal exam: Present: soft. Absent: distended, tenderness Extremities exam: Present: normal inspection, normal capillary refill. Absent: pedal edema Neurological exam: Present: alert, oriented X3, CN II-XII intact. Absent: motor sensory deficit Psychiatric exam: Present: normal affect, normal mood Skin exam: Present: warm, dry, intact Course Vital Signs 10/16/22 10/16/22 21:33 23:10 Temperature 98.4 F Pulse Rate 54 L 53 L Respiratory 18 18 Rate Blood Pressure 163/75 127/62 O2 Sat by Pulse 97 98 Oximetry Medical Decision Making - Medical Decision Making Was pt. sent in by a medical professional or institution (, PA, BENZENE OPERATOR, urgent c are, hospital, or correction...) When possible be specific @ -No Did you speak to anyone other than the patient for history (EMS, parent, family, police, friend...)? What history was obtained from this source @ -No Did you review nursing and triage notes (agree or disagree)? Why? @ -I reviewed and agree with nursing and triage notes Were old charts reviewed (outside hosp., previous admission, EMS record, old EKG, old radiological studies, urgent care reports/EKG's, correction records)? Report findings @ -No old charts were reviewed Differential Diagnosis (chest pain, altered mental status, abdominal pain women, abdominal pain men, vaginal bleeding, weakness, fever, dyspnea, syncope, headache, dizziness, GI bleed, back pain, seizure, CVA, palpatations, mental health, musculoskeletal)? @ -CVA, anginal equivalent, anxiety EKG interpreted by me (3pts min.). @ -[Sinus bradycardia rate of 57, SD interval 164, QRS duration 98, QTC [address] segment elevation Repeat EKG at 08/30/1929 sinus bradycardia rate of 52, SD interval 168, QRS duration 98, QTC 413, no ST segment elevation. X-rays interpreted by me (1pt min.). @ -Chest x-ray [Negative for acute cardiopulmonary findings CT interpreted by me (1pt min.). @ -CT brain negative for intracranial hemorrhage or acute findings U/S interpreted by me (1pt. min.). @ -None done What testing was considered but not performed or refused? (CT, X-rays, U/S, labs)? Why? @ -None What meds were considered but not given or refused? Why? @ -None Did you discuss the management of the patient with other professionals (elise ospina i.e. , PA, BENZENE OPERATOR, lab, RT, psych nurse, social work job titles, blade sharpener, teacher, special police officer, director case)? Give summary @ -No Was smoking cessation discussed for >3mins.? @ -No Was critical care preformed (if so, how long)? @ -No Were there social determinants of health that impacted care today? How? (Homelessness, low income, unemployed, alcoholism, drug addiction, transportati on, low edu. Level, literacy, decrease access to med. care, care home, rehab)? @ -No Was there de-escalation of care discussed even if they declined (Discuss DNR or withdrawal of care, Hospice)? DNR status @ -No What co-morbidities impacted this encounter? (DM, HTN, Smoking, COPD, CAD, Cancer, CVA, ARF, Chemo, Hep., AIDS, mental health diagnosis, sleep apnea, morbid obesity)? @ -Hypertension, coronary artery disease Was patient admitted / discharged? Hospital course, mention meds given and route, prescriptions, significant lab abnormalities, going to OR and other pertinent info. @ -77-year-old male presenting with a numb sensation in the center of his chest. No associated pain. No vomiting. No focal weakness. Given the patient's history of coronary artery disease and TIA I did perform complete workup including CT, EKG, chest x-ray, laboratory testing. His is essentially unremarkable. Patient symptoms are not persistent and he is without complaint while in the emergency department. We discussed strict return parameters including speech abnormality, focal numbness or weakness, chest pain, dyspnea. He will return with any worsening or changing symptoms. Undiagnosed new problem with uncertain prognosis? @ -No Drug Therapy requiring intensive monitoring for toxicity (Heparin, Nitro, Insulin, Cardizem)? @ -No Were any procedures done? @ -No Diagnosis/symptom? @ Paresthesia Acute, or Chronic, or Acute on Chronic? @ -Acute Uncomplicated (without systemic symptoms) or Complicated (systemic symptoms)? @ -default Side effects of treatment? @ -No Exacerbation, Progression, or Severe Exacerbation? @ -No Poses a threat to life or bodily function? How? (Chest pain, USA, NM, pneumonia, PE, COPD, DKA, ARF, appy, cholecystitis, CVA, Diverticulitis, Homicidal, Suicidal, threat to staff... and all critical care pts) @ -[Low risk at this time - Lab Data Result diagrams: 10/16/22 21:59 10/16/22 21:59 Lab Results 10/16/22 10/16/22 10/16/22 Range/Units 21:59 21:59 21:59 WBC 7.0 (3.8-10.6) k/uL RBC 4.48 (4.30-5.90) m/uL Hgb 14.4 (13.0-17.5) gm/dL Hct 41.6 (39.0-53.0) % MCV 92.9 (80.0-100.0) fL MCH 32.1 (25.0-35.0) pg MCHC 34.6 (31.0-37.0) g/dL RDW 13.2 (11.5-15.5) % Plt Count 119 L (150-450) k/uL MPV 10.7 Neutrophils % 58 % Lymphocytes % 27 % Monocytes % 8 % Eosinophils % 5 % Basophils % 1 % Neutrophils # 4.1 (1.3-7.7) k/uL Lymphocytes # 1.9 (1.0-4.8) k/uL Monocytes # 0.5 (0-1.0) k/uL Eosinophils # 0.3 (0-0.7) k/uL Basophils # 0.1 (0-0.2) k/uL PT 11.8 (9.0-12.0) sec INR 1.1 (<1.2) APTT 25.4 (22.0-30.0) sec Sodium 140 (137-145) mmol/L Potassium 4.6 (3.5-5.1) mmol/L Chloride 103 (98-107) mmol/L Carbon Dioxide 26 (22-30) mmol/L Anion Gap 11 mmol/L BUN 25 H (9-20) mg/dL Creatinine 1.31 H (0.66-1.25) mg/dL Est GFR (CKD-EPI)AfAm 61 (>60 ml/min/1.73 sqM) Est GFR (CKD-EPI)NonAf 53 (>60 ml/min/1.73 sqM) Glucose 103 H (74-99) mg/dL Calcium 9.4 (8.4-10.2) mg/dL Magnesium 2.3 (1.6-2.3) mg/dL Total Bilirubin 0.4 (0.2-1.3) mg/dL AST 50 (17-59) U/L ALT 67 H (4-49) U/L Alkaline Phosphatase 54 (38-126) U/L Troponin I (0.000-0.034) ng/mL Total Protein 7.2 (6.3-8.2) g/dL Albumin 4.3 (3.5-5.0) g/dL 10/16/22 Range/Units 21:59 WBC (3.8-10.6) k/uL RBC (4.30-5.90) m/uL Hgb (13.0-17.5) gm/dL Hct (39.0-53.0) % MCV (80.0-100.0) fL MCH (25.0-35.0) pg MCHC (31.0-37.0) g/dL RDW (11.5-15.5) % Plt Count (150-450) k/uL MPV Neutrophils % % Lymphocytes % % Monocytes % % Eosinophils % % Basophils % % Neutrophils # (1.3-7.7) k/uL Lymphocytes # (1.0-4.8) k/uL Monocytes # (0-1.0) k/uL Eosinophils # (0-0.7) k/uL Basophils # (0-0.2) k/uL PT (9.0-12.0) sec INR (<1.2) APTT (22.0-30.0) sec Sodium (137-145) mmol/L Potassium (3.5-5.1) mmol/L Chloride (98-107) mmol/L Carbon Dioxide (22-30) mmol/L Anion Gap mmol/L BUN (9-20) mg/dL Creatinine (0.66-1.25) mg/dL Est GFR (CKD-EPI)AfAm (>60 ml/min/1.73 sqM) Est GFR (CKD-EPI)NonAf (>60 ml/min/1.73 sqM) Glucose (74-99) mg/dL Calcium (8.4-10.2) mg/dL Magnesium (1.6-2.3) mg/dL Total Bilirubin (0.2-1.3) mg/dL AST (17-59) U/L ALT (4-49) U/L Alkaline Phosphatase (38-126) U/L Troponin I <0.012 (0.000-0.034) ng/mL Total Protein (6.3-8.2) g/dL Albumin (3.5-5.0) g/dL Disposition Clinical Impression: Paresthesia Disposition: HOME SELF-CARE Condition: Fair Instructions (If sedation given, give patient instructions): Paresthesia (ED) Is patient prescribed a controlled substance at d/c from ED?: No Referrals: [facility],Clinic [Primary Care Provider] - 1-2 days Time of Disposition: 23:45
[2022-10-16] MEDS ORDERED: SODIUM CHLORIDE 0.9% 500 ML 500 ML IV ONE (22:48)
--- NOTE | 2022-10-16 23:12 | XR ---
EXAM: XR Chest, 2 Views CLINICAL HISTORY: ITS.REASON XR Reason: Chest Pain TECHNIQUE: Frontal and lateral views of the chest. COMPARISON: No relevant prior studies available. FINDINGS: Lungs: Unremarkable. No consolidation. Pleural space: Unremarkable. No pneumothorax. Heart: Unremarkable. No cardiomegaly. Mediastinum: Unremarkable. Bones/joints: Sternotomy wires. IMPRESSION: No acute findings in the chest.
--- NOTE | 2022-10-16 23:31 | CT ---
EXAM: CT Head Without Intravenous Contrast CLINICAL HISTORY: ITS.REASON CT Reason: Left arm numbness TECHNIQUE: Axial computed tomography images of the head/brain without intravenous contrast. CTDI is 49.1 mGy and DLP is 1218.4 mGy-cm. This CT exam was performed using one or more of the following dose reduction techniques: automated exposure control, adjustment of the mA and/or kV according to patient size, and/or use of iterative reconstruction technique. COMPARISON: No relevant prior studies available. FINDINGS: No acute intracranial hemorrhage. No midline shift or mass effect. The territorial boland-white matter differentiation is maintained throughout. Age-related cerebral volume loss. Periventricular and subcortical white matter hypoattenuation, consistent with chronic microangiopathy. The visualized orbits appear grossly unremarkable. The calvarium is intact. The visualized paranasal sinuses and mastoid air cells are grossly clear. IMPRESSION: No acute intracranial hemorrhage, midline shift, or mass effect.
[2022-10-16 23:55] VITALS: BP 126/67; PULSE 58; TEMP 98.2
== END 2022-10-17 | disposition home or self-care (01) ==
LOC: EC 21:30
DX: R20.2 Paresthesia of skin (principal); I10 Essential (primary) hypertension; E78.5 Hyperlipidemia, unspecified; I25.10 Atherosclerotic heart disease of native coronary artery without angina pectoris; Z79.82 Long term (current) use of aspirin; Z79.899 Other long term (current) drug therapy; Z88.8 Allergy status to other drugs, medicaments and biological substances
CPT/HCPCS: 36415; 70450; 71046; 80053; 83735; 84484; 85025; 85610; 85730; 93005; 96360; 99285

== ENCOUNTER 2023-04-27 20:52 | Emergency (ER) | payer OTHER ==
[2023-04-27 21:01] VITALS: TEMP 99
[2023-04-27 21:10] LABS: Glucose,Whole Blood 97 mg/dL (70-110)
--- NOTE | 2023-04-27 21:33 | ED ---
General Adult HPI - General Chief complaint: Syncope Stated complaint: SYNCOPE Time Seen by Provider: 04/27/23 21:03 Source: patient, EMS Mode of arrival: EMS - History of Present Illness Initial comments: Dictation was produced using [employer] dictation software. please excuse any gra mmatical, word or spelling errors. Chief Complaint: 77-year-old male presents to the emergency department after syncopal episode History of Present Illness: Patient 77-year-old male he presents to the emergency department after he fell in the bathroom. Patient has been feeling unwell for the last 3 to 4 days. He has been having a cough and some very mild constitutional symptoms. Patient was diagnosed with pneumonia recently. He is not however taking any current medications for it. He is brought in by EMS. States that he felt very sick since this morning. He has been sleepy for most of the day. Got up was able to go to the bathroom when he reports that he fell. Patient does not remember tripping. He did report hitting his head. He called for his who found him in the tub. Patient denies any head pain. He arrived to the emergency department via EMS with a c-collar on. Patient denies any extremity chest or abdominal pain. Denies any trouble breathing. The ROS documented in this emergency department record has been reviewed and confirmed by me. Those systems with pertinent positive or negative responses have been documented in the HPI. All other systems are other negative and/or noncontributory. - Related Data Home Medications Medication Instructions Recorded Confirmed Acetaminophen [Tylenol] 1,000 mg PO Q6H PRN 07/11/21 04/27/23 Ezetimibe [Zetia] 10 mg PO HS 07/11/21 04/27/23 Famotidine 20 mg PO BID 07/11/21 04/27/23 Losartan [Cozaar] 50 mg PO DAILY 07/11/21 04/27/23 Primidone [Mysoline] 100 mg PO BID 07/11/21 04/27/23 Rosuvastatin Calcium 40 mg PO DAILY 07/11/21 04/27/23 Gabapentin 300 mg PO TID 08/05/21 04/27/23 Meclizine [Antivert] 25 mg PO TID PRN 08/05/21 04/27/23 Tamsulosin [Flomax] 0.4 mg PO DAILY 08/05/21 04/27/23 methocarbamoL [Robaxin] 500 mg PO BID PRN 08/05/21 04/27/23 traMADol HCL 50 mg PO QID PRN 08/05/21 04/27/23 Aspirin EC [Ecotrin Low Dose] 81 mg PO DAILY 08/31/22 04/27/23 Divalproex [Depakote] 250 mg PO BID 08/31/22 04/27/23 Metoprolol Tartrate [Lopressor] 50 mg PO BID 08/31/22 04/27/23 Nitroglycerin Sl Tabs [Nitrostat] 0.4 mg SUBLINGUAL Q5M PRN 08/31/22 04/27/23 [place]-3/Dha/Epa/Fish Oil [Fish Oil 1 cap PO DAILY 08/31/22 04/27/23 1,000 mg Softgel] Sildenafil Citrate 50 mg PO DAILY PRN 08/31/22 04/27/23 amLODIPine [Norvasc] 5 mg PO DAILY 08/31/22 04/27/23 Albuterol Nebulized [Ventolin 2.5 mg INHALATION RT-Q4H PRN 04/27/23 04/27/23 Nebulized] Butalb/Acetaminophen/Caffeine 1 tab PO DAILY PRN 04/27/23 04/27/23 [Esgic 50-325-40 mg Tablet] Dm/Acetaminophen/Doxylamine 30 ml PO Q6H PRN 04/27/23 04/27/23 [Coricidin Hbp Cold-Multi Sympt] Glucosam/David-Msm1/C/Jesus/Bosw 1 tab PO DAILY 04/27/23 04/27/23 [Glucosamine-Chondroitin Tablet] Ibuprofen [Motrin] 600 mg PO BID PRN 04/27/23 04/27/23 Lidocaine 5% Patch [Lidoderm 5% 1 - 3 patch TRANSDERM DAILY PRN 04/27/23 04/27/23 Patch] Melatonin 3 mg PO HS 04/27/23 04/27/23 Previous Rx's Medication Instructions Recorded Azithromycin [Zithromax Z Pack] 1 tab PO DIRECTED #6 tab 04/27/23 Oseltamivir [Tamiflu] 75 mg PO Q12HR 5 Days #10 cap 04/27/23 Allergies Allergy/AdvReac Type Severity Reaction Status Date / Time fluvastatin [From Lescol] Allergy per [facility] Verified 04/27/23 22:07 janina lisinopril AdvReac Cough Verified 04/27/23 22:07 simvastatin [From Zocor] AdvReac Abdominal Verified 04/27/23 22:07 Pain Mbrcgcg-[id number]-OxP Reductase AdvReac Abdominal Verified 04/27/23 22:07 Inhibitor Pain Review of Systems ROS Statement: Those systems with pertinent positive or pertinent negative responses have been documented in the HPI. ROS Other: All systems not noted in ROS Statement are negative. Past Medical History Past Medical History: Hearing Disorder / Deafness, Hyperlipidemia, Hypertension, Musculoskeletal Disorder, Prostate Disorder Additional Past Medical History / Comment(s): Back and bilateral knee pain. Enlarged prostate. Vertigo. Hard of hearing, worse in left ear. History of Any Multi-Drug Resistant Organisms: None Reported Past Surgical History: Coronary Bypass/CABG, Heart Catheterization With Stent Additional Past Surgical History / Comment(s): Quadruple bypass 14 yrs ago, left inner carotid, shamika filter. Past Anesthesia/Blood Transfusion Reactions: No Reported Reaction Additional Past Anesthesia/Blood Transfusion Reaction / Comment(s): Vertigo. Date of Last Stent Placement:: unk Past Psychological History: No Psychological Hx Reported Smoking Status: Never smoker Past Alcohol Use History: None Reported Past Drug Use History: None Reported - Past Family History Daughter(s) Family Medical History: Cancer Additional Family Medical History / Comment(s): Breast cancer. General Exam - General Exam Comments Initial Comments: PHYSICAL EXAM: General Impression: Alert and oriented x3, not in acute distress HEENT: Normocephalic atraumatic, extra-ocular movements intact, pupils equal and reactive to light bilaterally, mucous membranes moist. Cardiovascular: Heart regular rate and rhythm Chest: Able to complete full sentences, no retractions, no tachypnea Abdomen: abdomen soft, non-tender, non-distended, no organomegaly Musculoskeletal: Pulses present and equal in all extremities, no peripheral edema Motor: no focal deficits noted Neurological: CN II-XII grossly intact, no focal motor or sensory deficits noted Skin: Intact with no visualized rashes Psych: Normal affect and mood Course Vital Signs 04/27/23 04/27/23 20:55 22:10 Temperature 99.0 F Pulse Rate 64 72 Respiratory 18 19 Rate Blood Pressure 136/67 131/62 O2 Sat by Pulse 97 98 Oximetry EKG Findings - EKG Comments: EKG Findings:: My EKG interpretation: Ventricular rate 66, sinus rhythm,. 162, cures 92, QTc 414. No ID prolongation, no QTC prolongation, no ST or T-wave changes noted. Overall, this EKG is unremarkable Medical Decision Making - Medical Decision Making Was pt. sent in by a medical professional or institution (, [facility], NURSE INFECTION CONTROL, urgent care, hospital, or fdc...) When possible be specific @ -No Did you speak to anyone other than the patient for history (EMS, parent, family, police, friend...)? What history was obtained from this source @ -No Did you review nursing and triage notes (agree or disagree)? Why? @ -I reviewed and agree with nursing and triage notes Were old charts reviewed (outside hosp., previous admission, EMS record, old EKG, old radiological studies, urgent care reports/EKG's, fdc records)? Report findings @ -No old charts were reviewed Differential Diagnosis (chest pain, altered mental status, abdominal pain women, abdominal pain men, vaginal bleeding, musculoskeletal, weakness, fever, dyspnea, syncope, headache, dizziness, GI bleed, back pain, seizure, CVA, palpatations, mental health)? @ -Differential Syncope: Valvular disease, hypertrophic cardiomyopathy, pulmonary embolism, tamponade, tachycardia, bradycardia, SD, hypovolemia, hemorrhage, dissection, anemia, intracranial hemorrhage, seizure, hypoglycemia, carbon monoxide poisoning, this is not meant to be an all-inclusive list. EKG interpreted by me (3pts min.). @ -See above X-rays interpreted by me (1pt min.). @ -Chest x-ray shows opacity at the medial right lung base CT interpreted by me (1pt min.). @ -None done U/S interpreted by me (1pt. min.). @ -None done What testing was considered but not performed or refused? (CT, X-rays, U/S, labs)? Why? @ -None What meds were considered but not given or refused? Why? @ -None Did you discuss the management of the patient with other professionals (professionals i.e. JONAH Meza, NURSE INFECTION CONTROL, lab, RT, psych nurse, family welfare social work professor, back tufter, teacher, adult probation officer, case packer and sealer)? Give summary @ -No Was smoking cessation discussed for >3mins.? @ -No Was critical care preformed (if so, how long)? @ -No Were there social determinants of health that impacted care today? How? (Homelessness, low income, unemployed, alcoholism, drug addiction, transp ortation, low edu. Level, literacy, decrease access to med. care, long-term, rehab)? @ -No Was there de-escalation of care discussed even if they declined (Discuss DNR or withdrawal of care, Hospice)? DNR status @ -No What co-morbidities impacted this encounter? (DM, HTN, Smoking, COPD, CAD, Cancer, CVA, ARF, Chemo, Hep., AIDS, mental health diagnosis, sleep apnea, morbid obesity)? @ -None Was patient admitted / discharged? Hospital course, mention meds given and route, prescriptions, significant lab abnormalities, going to OR and other pertinent info. @ -77-year-old male presents emergency department with syncopal episode. He is also having symptoms of URI. Vital signs upon arrival are within acceptable limits. Patient well-appearing at the bedside. Laboratory evaluation obtained. CBC and coag panel is unremarkable. Metabolic panel is negative. Troponin is negative. Patient influenza A positive. Patient observed emergency department for approximately 1 hour 50 minutes. Reevaluated bedside at 10:41 PM found to be within stable medical addition. Disposition options were discussed. Patient agreeable with discharge. No high risk features. Return precautions discussed. Patient given prescription for Tamiflu and Zithromax. Undiagnosed new problem with uncertain prognosis? @ -No Drug Therapy requiring intensive monitoring for toxicity (Heparin, Nitro, Insulin, Cardizem)? @ -No Were any procedures done? @ -No Diagnosis/symptom? Acute, or Chronic, or Acute on Chronic? Uncomplicated (without systemic symptoms) or Complicated (systemic symptoms)? @ -Syncope, influenza Side effects of treatment? @ -No Exacerbation, Progression, or Severe Exacerbation? @ -No Poses a threat to life or bodily function? How? (Chest pain, USA, SD, pneumonia, PE, COPD, DKA, ARF, appy, cholecystitis, CVA, Diverticulitis, Homicidal, Suicidal, threat to staff... and all critical care pts) @ -No - Lab Data Result diagrams: 04/27/23 21:29 04/27/23 21:29 Lab Results 02/04/27/23 04/27/23 Range/Units 21:08 21:29 21:29 WBC 8.9 (3.8-10.6) k/uL RBC 4.91 (4.30-5.90) m/uL Hgb 15.2 (13.0-17.5) gm/dL Hct 45.1 (39.0-53.0) % MCV 91.9 (80.0-100.0) fL MCH 30.9 (25.0-35.0) pg MCHC 33.6 (31.0-37.0) g/dL RDW 12.9 (11.5-15.5) % Plt Count 133 L (150-450) k/uL MPV 10.2 Neutrophils % 86 % Lymphocytes % 4 % Monocytes % 6 % Eosinophils % 2 % Basophils % 1 % Neutrophils # 7.6 (1.3-7.7) k/uL Lymphocytes # 0.4 L (1.0-4.8) k/uL Monocytes # 0.6 (0-1.0) k/uL Eosinophils # 0.2 (0-0.7) k/uL Basophils # 0.1 (0-0.2) k/uL PT 12.6 H (10.0-12.5) sec INR 1.2 H (<1.2) APTT 22.3 (22.0-30.0) sec Sodium (137-145) mmol/L Potassium (3.5-5.1) mmol/L Chloride (98-107) mmol/L Carbon Dioxide (22-30) mmol/L Anion Gap mmol/L BUN (9-20) mg/dL Creatinine (0.66-1.25) mg/dL Est GFR (CKD-EPI)AfAm (>60 ml/min/1.73 sqM) Est GFR (CKD-EPI)NonAf (>60 ml/min/1.73 sqM) Glucose (74-99) mg/dL POC Glucose (mg/dL) 97 (70-110) mg/dL POC Glu Wire Saw Operator ID Carlos Galaviz Plasma Lactic Acid Jt (0.7-2.0) mmol/L Calcium (8.4-10.2) mg/dL Magnesium (1.6-2.3) mg/dL Total Bilirubin (0.2-1.3) mg/dL AST (17-59) U/L ALT (4-49) U/L Alkaline Phosphatase (38-126) U/L Troponin I (0.000-0.034) ng/mL Total Protein (6.3-8.2) g/dL Albumin (3.5-5.0) g/dL Influenza Type A (PCR) (Not Detectd) Influenza Type B (PCR) (Not Detectd) RSV (PCR) (Not Detectd) SARS-CoV-2 (PCR) (Not Detectd) 04/27/23 04/27/23 04/27/23 Range/Units 21:29 21:29 21:29 WBC (3.8-10.6) k/uL RBC (4.30-5.90) m/uL Hgb (13.0-17.5) gm/dL Hct (39.0-53.0) % MCV (80.0-100.0) fL MCH (25.0-35.0) pg MCHC (31.0-37.0) g/dL RDW (11.5-15.5) % Plt Count (150-450) k/uL MPV Neutrophils % % Lymphocytes % % Monocytes % % Eosinophils % % Basophils % % Neutrophils # (1.3-7.7) k/uL Lymphocytes # (1.0-4.8) k/uL Monocytes # (0-1.0) k/uL Eosinophils # (0-0.7) k/uL Basophils # (0-0.2) k/uL PT (10.0-12.5) sec INR (<1.2) APTT (22.0-30.0) sec Sodium 142 (137-145) mmol/L Potassium 4.4 (3.5-5.1) mmol/L Chloride 108 H (98-107) mmol/L Carbon Dioxide 27 (22-30) mmol/L Anion Gap 7 mmol/L BUN 19 (9-20) mg/dL Creatinine 1.03 (0.66-1.25) mg/dL Est GFR (CKD-EPI)AfAm 82 (>60 ml/min/1.73 sqM) Est GFR (CKD-EPI)NonAf 71 (>60 ml/min/1.73 sqM) Glucose 105 H (74-99) mg/dL POC Glucose (mg/dL) (70-110) mg/dL POC Glu Wire Saw Operator ID Plasma Lactic Acid Jt 1.2 (0.7-2.0) mmol/L Calcium 9.2 (8.4-10.2) mg/dL Magnesium 2.0 (1.6-2.3) mg/dL Total Bilirubin 0.7 (0.2-1.3) mg/dL AST 50 (17-59) U/L ALT 67 H (4-49) U/L Alkaline Phosphatase 63 (38-126) U/L Troponin I <0.012 (0.000-0.034) ng/mL Total Protein 7.0 (6.3-8.2) g/dL Albumin 4.2 (3.5-5.0) g/dL Influenza Type A (PCR) (Not Detectd) Influenza Type B (PCR) (Not Detectd) RSV (PCR) (Not Detectd) SARS-CoV-2 (PCR) (Not Detectd) 04/27/23 Range/Units 21:29 WBC (3.8-10.6) k/uL RBC (4.30-5.90) m/uL Hgb (13.0-17.5) gm/dL Hct (39.0-53.0) % MCV (80.0-100.0) fL MCH (25.0-35.0) pg MCHC (31.0-37.0) g/dL RDW (11.5-15.5) % Plt Count (150-450) k/uL MPV Neutrophils % % Lymphocytes % % Monocytes % % Eosinophils % % Basophils % % Neutrophils # (1.3-7.7) k/uL Lymphocytes # (1.0-4.8) k/uL Monocytes # (0-1.0) k/uL Eosinophils # (0-0.7) k/uL Basophils # (0-0.2) k/uL PT (10.0-12.5) sec INR (<1.2) APTT (22.0-30.0) sec Sodium (137-145) mmol/L Potassium (3.5-5.1) mmol/L Chloride (98-107) mmol/L Carbon Dioxide (22-30) mmol/L Anion Gap mmol/L BUN (9-20) mg/dL Creatinine (0.66-1.25) mg/dL Est GFR (CKD-EPI)AfAm (>60 ml/min/1.73 sqM) Est GFR (CKD-EPI)NonAf (>60 ml/min/1.73 sqM) Glucose (74-99) mg/dL POC Glucose (mg/dL) (70-110) mg/dL POC Glu Wire Saw Operator ID Plasma Lactic Acid Jt (0.7-2.0) mmol/L Calcium (8.4-10.2) mg/dL Magnesium (1.6-2.3) mg/dL Total Bilirubin (0.2-1.3) mg/dL AST (17-59) U/L ALT (4-49) U/L Alkaline Phosphatase (38-126) U/L Troponin I (0.000-0.034) ng/mL Total Protein (6.3-8.2) g/dL Albumin (3.5-5.0) g/dL Influenza Type A (PCR) Detected A (Not Detectd) Influenza Type B (PCR) Not Detected (Not Detectd) RSV (PCR) Not Detected (Not Detectd) SARS-CoV-2 (PCR) Not Detected (Not Detectd) Disposition Clinical Impression: Influenza Disposition: HOME SELF-CARE Condition: Fair Instructions (If sedation given, give patient instructions): Influenza (ED) Prescriptions: Oseltamivir [Tamiflu] 75 mg PO Q12HR 5 Days #10 cap Azithromycin [Zithromax Z Pack] 1 tab PO DIRECTED #6 tab Is patient prescribed a controlled substance at d/c from ED?: No Referrals: [facility] [Primary Care Provider] - 1-2 days Time of Disposition: 22:39
[2023-04-27 21:39] LABS: Basophils # (A) 0.1 k/uL (0-0.2); Basophils % (A) 1 %; Eosinophils # (A) 0.2 k/uL (0-0.7); Eosinophils % (A) 2 %; HCT 45.1 % (39.0-53.0); HGB 15.2 gm/dL (13.0-17.5); Lymphocytes # (A) 0.4 k/uL (1.0-4.8); Lymphocytes % (A) 4 %; MCH 30.9 pg (25.0-35.0); MCHC 33.6 g/dL (31.0-37.0); MCV 91.9 fL (80.0-100.0); Mean Platelet Volume 10.2; Monocytes # (A) 0.6 k/uL (0-1.0); Monocytes % (A) 6 %; Neutrophils # (A) 7.6 k/uL (1.3-7.7); Neutrophils % (A) 86 %; Platelet Count 133 k/uL (150-450); RBC 4.91 m/uL (4.30-5.90); RDW 12.9 % (11.5-15.5); WBC 8.9 k/uL (3.8-10.6)
[2023-04-27 21:47] LABS: ALT 67 U/L (4-49); AST 50 U/L (17-59); African American GFR (CKD) 82 (>60 ml/min/1.73 sqM); Albumin 4.2 g/dL (3.5-5.0); Alkaline Phosphatase 63 U/L (38-126); Anion Gap 7 mmol/L; Blood Urea Nitrogen 19 mg/dL (9-20); Calcium 9.2 mg/dL (8.4-10.2); Carbon Dioxide 27 mmol/L (22-30); Chloride 108 mmol/L (98-107); Glucose 105 mg/dL (74-99); Non-African American GFR(CKD) 71 (>60 ml/min/1.73 sqM); Potassium 4.4 mmol/L (3.5-5.1); Sodium 142 mmol/L (137-145); Total Bilirubin 0.7 mg/dL (0.2-1.3)
[2023-04-27 21:50] LABS: INR 1.2 (<1.2); Partial Thromboplastin Time 22.3 sec (22.0-30.0); Prothrombin Time 12.6 sec (10.0-12.5)
--- NOTE | 2023-04-27 22:03 | CT ---
EXAMINATION TYPE: CT brain cspine wo con CT DLP: 1366.7 mGycm, Automated exposure control for dose reduction was used. DATE OF EXAM: 04/27/2023 9:50 PM COMPARISON: 10/16/2022. CLINICAL INDICATION:Male, 77 years old with history of cough; fall, syncope TECHNIQUE: Brain: Multiple axial CT images of the brain were obtained without IV contrast. Cspine: Axial CT images from the skull base to the inferior aspect of T2 we obtained without intraven ous contrast. Coronal and sagittal reformatted images were also reviewed. FINDINGS: Brain: Extra-axial spaces: No abnormal extra-axial fluid collections. Ventricular system: Within normal limits Cerebral parenchyma: No acute intraparenchymal hemorrhage or mass effect. The boland-white junction is well differentiated. Cerebellum: Unremarkable. Mass effect: No evidence of midline shift. Intracranial vasculature: Atherosclerotic calcifications of the intracranial vessels. Soft tissues: Normal. Calvarium/osseous structures: No depressed skull fracture. Paranasal sinuses and mastoid air cells: Mild scattered mucosal thickening and or secretions. Visualized orbits: Orbital contents are intact. Cervical spine: Fracture: None. Osseous structures: Multilevel degenerative disc disease changes with endplate spurring and disc oste ophyte complex's. Vertebral alignment: Within normal limits. Spinal canal/Neural Foramina: No evidence of significant spinal canal narrowing. No evidence for sign ificant neural foraminal stenosis. Neck soft tissues: Prevertebral soft tissues are within normal limits. Other: The airway is patent. The lung apices are clear. Left carotid system stent graft. IMPRESSION: 1. No acute intracranial process. 2. Nonspecific white matter changes, likely secondary to chronic small vessel ischemic disease. 3. No evidence of cervical spine fracture. 4. Mild multilevel degenerative disc disease.
--- NOTE | 2023-04-27 22:27 | XR ---
EXAM: XR Chest, 2 Views CLINICAL HISTORY: ITS.REASON XR Reason: cough TECHNIQUE: Frontal and lateral views of the chest. COMPARISON: 10/16/22 FINDINGS: Lungs: Opacities at the medial right lung base. Left lung is clear. Pleural space: Unremarkable. No pleural effusion or pneumothorax. Heart: Previous sternotomy. Normal heart size. No vascular congestion. Bones/joints: No acute osseous findings. Upper abdomen: Right hemidiaphragm elevation. IMPRESSION: Opacities at the medial right lung base. Findings could reflect pneumonia in the appropriate clinical setting, with atelectasis the differential consideration.
[2023-04-27 22:29] VITALS: PULSE 72
[2023-04-27] MEDS: OSELTAMIVIR 75 MG CAP PO STA (22:50)
--- NOTE | 2023-04-27 22:53 | ED ---
Medical Decision Making - Lab Data Result diagrams: 04/27/23 21:29 04/27/23 21:29 Lab Results 04/27/23 04/27/23 04/27/23 Range/Units 21:08 21:29 21:29 WBC 8.9 (3.8-10.6) k/uL RBC 4.91 (4.30-5.90) m/uL Hgb 15.2 (13.0-17.5) gm/dL Hct 45.1 (39.0-53.0) % MCV 91.9 (80.0-100.0) fL MCH 30.9 (25.0-35.0) pg MCHC 33.6 (31.0-37.0) g/dL RDW 12.9 (11.5-15.5) % Plt Count 133 L (150-450) k/uL MPV 10.2 Neutrophils % 86 % Lymphocytes % 4 % Monocytes % 6 % Eosinophils % 2 % Basophils % 1 % Neutrophils # 7.6 (1.3-7.7) k/uL Lymphocytes # 0.4 L (1.0-4.8) k/uL Monocytes # 0.6 (0-1.0) k/uL Eosinophils # 0.2 (0-0.7) k/uL Basophils # 0.1 (0-0.2) k/uL PT 12.6 H (10.0-12.5) sec INR 1.2 H (<1.2) APTT 22.3 (22.0-30.0) sec Sodium (137-145) mmol/L Potassium (3.5-5.1) mmol/L Chloride (98-107) mmol/L Carbon Dioxide (22-30) mmol/L Anion Gap mmol/L BUN (9-20) mg/dL Creatinine (0.66-1.25) mg/dL Est GFR (CKD-EPI)AfAm (>60 ml/min/1.73 sqM) Est GFR (CKD-EPI)NonAf (>60 ml/min/1.73 sqM) Glucose (74-99) mg/dL POC Glucose (mg/dL) 97 (70-110) mg/dL POC Glu Hunter Skin Diver ID Rhezie, Emie Plasma Lactic Acid Jt (0.7-2.0) mmol/L Calcium (8.4-10.2) mg/dL Magnesium (1.6-2.3) mg/dL Total Bilirubin (0.2-1.3) mg/dL AST (17-59) U/L ALT (4-49) U/L Alkaline Phosphatase (38-126) U/L Troponin I (0.000-0.034) ng/mL Total Protein (6.3-8.2) g/dL Albumin (3.5-5.0) g/dL Influenza Type A (PCR) (Not Detectd) Influenza Type B (PCR) (Not Detectd) RSV (PCR) (Not Detectd) SARS-CoV-2 (PCR) (Not Detectd) 04/27/23 04/27/23 04/27/23 Range/Units 21:29 21:29 21:29 WBC (3.8-10.6) k/uL RBC (4.30-5.90) m/uL Hgb (13.0-17.5) gm/dL Hct (39.0-53.0) % MCV (80.0-100.0) fL MCH (25.0-35.0) pg MCHC (31.0-37.0) g/dL RDW (11.5-15.5) % Plt Count (150-450) k/uL MPV Neutrophils % % Lymphocytes % % Monocytes % % Eosinophils % % Basophils % % Neutrophils # (1.3-7.7) k/uL Lymphocytes # (1.0-4.8) k/uL Monocytes # (0-1.0) k/uL Eosinophils # (0-0.7) k/uL Basophils # (0-0.2) k/uL PT (10.0-12.5) sec INR (<1.2) APTT (22.0-30.0) sec Sodium 142 (137-145) mmol/L Potassium 4.4 (3.5-5.1) mmol/L Chloride 108 H (98-107) mmol/L Carbon Dioxide 27 (22-30) mmol/L Anion Gap 7 mmol/L BUN 19 (9-20) mg/dL Creatinine 1.03 (0.66-1.25) mg/dL Est GFR (CKD-EPI)AfAm 82 (>60 ml/min/1.73 sqM) Est GFR (CKD-EPI)NonAf 71 (>60 ml/min/1.73 sqM) Glucose 105 H (74-99) mg/dL POC Glucose (mg/dL) (70-110) mg/dL POC Glu Hunter Skin Diver ID Plasma Lactic Acid Jt 1.2 (0.7-2.0) mmol/L Calcium 9.2 (8.4-10.2) mg/dL Magnesium 2.0 (1.6-2.3) mg/dL Total Bilirubin 0.7 (0.2-1.3) mg/dL AST 50 (17-59) U/L ALT 67 H (4-49) U/L Alkaline Phosphatase 63 (38-126) U/L Troponin I <0.012 (0.000-0.034) ng/mL Total Protein 7.0 (6.3-8.2) g/dL Albumin 4.2 (3.5-5.0) g/dL Influenza Type A (PCR) (Not Detectd) Influenza Type B (PCR) (Not Detectd) RSV (PCR) (Not Detectd) SARS-CoV-2 (PCR) (Not Detectd) 04/27/23 Range/Units 21:29 WBC (3.8-10.6) k/uL RBC (4.30-5.90) m/uL Hgb (13.0-17.5) gm/dL Hct (39.0-53.0) % MCV (80.0-100.0) fL MCH (25.0-35.0) pg MCHC (31.0-37.0) g/dL RDW (11.5-15.5) % Plt Count (150-450) k/uL MPV Neutrophils % % Lymphocytes % % Monocytes % % Eosinophils % % Basophils % % Neutrophils # (1.3-7.7) k/uL Lymphocytes # (1.0-4.8) k/uL Monocytes # (0-1.0) k/uL Eosinophils # (0-0.7) k/uL Basophils # (0-0.2) k/uL PT (10.0-12.5) sec INR (<1.2) APTT (22.0-30.0) sec Sodium (137-145) mmol/L Potassium (3.5-5.1) mmol/L Chloride (98-107) mmol/L Carbon Dioxide (22-30) mmol/L Anion Gap mmol/L BUN (9-20) mg/dL Creatinine (0.66-1.25) mg/dL Est GFR (CKD-EPI)AfAm (>60 ml/min/1.73 sqM) Est GFR (CKD-EPI)NonAf (>60 ml/min/1.73 sqM) Glucose (74-99) mg/dL POC Glucose (mg/dL) (70-110) mg/dL POC Glu Hunter Skin Diver ID Plasma Lactic Acid Jt (0.7-2.0) mmol/L Calcium (8.4-10.2) mg/dL Magnesium (1.6-2.3) mg/dL Total Bilirubin (0.2-1.3) mg/dL AST (17-59) U/L ALT (4-49) U/L Alkaline Phosphatase (38-126) U/L Troponin I (0.000-0.034) ng/mL Total Protein (6.3-8.2) g/dL Albumin (3.5-5.0) g/dL Influenza Type A (PCR) Detected A (Not Detectd) Influenza Type B (PCR) Not Detected (Not Detectd) RSV (PCR) Not Detected (Not Detectd) SARS-CoV-2 (PCR) Not Detected (Not Detectd) Disposition Clinical Impression: Influenza Disposition: HOME SELF-CARE Condition: Fair Instructions (If sedation given, give patient instructions): Influenza (ED) Prescriptions: Oseltamivir [Tamiflu] 75 mg PO Q12HR 5 Days #10 cap Azithromycin [Zithromax Z Pack] 1 tab PO DIRECTED #6 tab Is patient prescribed a controlled substance at d/c from ED?: No Referrals: [facility] [Primary Care Provider] - 1-2 days
[2023-04-27 22:58] VITALS: BP 139/58; RESP 17
== END 2023-04-27 22:53 | disposition home or self-care (01) ==
LOC: EC 20:52
DX: J10.1 Influenza due to other identified influenza virus with other respiratory manifestations (principal); E78.5 Hyperlipidemia, unspecified; I10 Essential (primary) hypertension; Z79.899 Other long term (current) drug therapy; Z79.82 Long term (current) use of aspirin; Z88.8 Allergy status to other drugs, medicaments and biological substances; Z20.822 Contact with and (suspected) exposure to COVID-19
CPT/HCPCS: 36415; 70450; 71046; 72125; 80053; 83605; 83735; 84484; 85025; 85610; 85730; 87636; 93005; 99285

== ENCOUNTER 2024-05-05 16:13 | Observation (INO) | payer OTHER ==
--- NOTE | 2024-05-05 16:51 | ED ---
General Adult HPI - General Chief complaint: Neuro Symptoms/Deficit Stated complaint: sudden lethargy Time Seen by Provider: 05/05/24 16:38 Source: patient, family, RN notes reviewed Mode of arrival: ambulatory Limitations: no limitations - History of Present Illness Initial comments: Patient is a 78-year-old male present to the emergency department with concerns for sudden fatigue. Onset of symptoms was prior to arrival. Patient suddenly felt fatigued all over. Patient did feel a little bit tingly. Patient denies any speech problem however is present and states that patient did have delayed speech for several minutes. Patient currently feels back to normal has no complaints. Patient states he did have similar episode occur around 2 weeks ago and was diagnosed with TIA. - Related Data Home Medications Medication Instructions Recorded Confirmed Ezetimibe [Zetia] 10 mg PO HS 07/11/21 04/22/24 Famotidine 20 mg PO BID 07/11/21 04/22/24 Losartan [Cozaar] 50 mg PO DAILY 07/11/21 04/22/24 Primidone [Mysoline] 100 mg PO BID 07/11/21 04/22/24 Rosuvastatin Calcium 40 mg PO DAILY 07/11/21 04/22/24 Gabapentin 300 mg PO TID 08/05/21 04/22/24 Meclizine [Antivert] 25 mg PO TID 08/05/21 04/22/24 Tamsulosin [Flomax] 0.4 mg PO BID 08/05/21 04/22/24 methocarbamoL [Robaxin] 500 mg PO BID 08/05/21 04/22/24 traMADol HCL 50 mg PO QID PRN 08/05/21 04/22/24 Aspirin EC [Ecotrin Low Dose] 81 mg PO DAILY 08/31/22 04/22/24 Divalproex [Depakote] 250 mg PO BID 08/31/22 04/22/24 Nitroglycerin Sl Tabs [Nitrostat] 0.4 mg SUBLINGUAL Q5M PRN 08/31/22 04/22/24 [place]-3/Dha/Epa/Fish Oil [Fish Oil 1 cap PO DAILY 08/31/22 04/22/24 1,000 mg Softgel] Sildenafil Citrate 50 mg PO DAILY PRN 08/31/22 04/22/24 amLODIPine [Norvasc] 5 mg PO DAILY 08/31/22 04/22/24 Butalb/Acetaminophen/Caffeine 1 tab PO DAILY PRN 04/27/23 04/22/24 [Esgic 50-325-40 mg Tablet] Ibuprofen [Motrin] 600 mg PO BID PRN 04/27/23 04/22/24 Lidocaine 5% Patch [Lidoderm 5% 1 patch TRANSDERM DAILY PRN 04/27/23 04/22/24 Patch] Melatonin 3 mg PO HS 04/27/23 04/22/24 Empagliflozin [Jardiance] 10 mg PO DAILY 04/22/24 04/22/24 Erenumab-Aooe [Aimovig 140 mg SQ QMONTHLY 04/22/24 04/22/24 Autoinjector] Previous Rx's Medication Instructions Recorded Clopidogrel [Plavix] 75 mg PO DAILY #30 tab 04/23/24 Metoprolol Tartrate [Lopressor] 50 mg PO BID #60 tab 04/23/24 Allergies Allergy/AdvReac Type Severity Reaction Status Date / Time fluvastatin [From Lescol] [facility]ergy per [facility] Verified 05/05/24 16:33 janina lisinopril AdvReac Cough Verified 05/05/24 16:33 simvastatin [From Zocor] AdvReac Abdominal Verified 05/05/24 16:33 Pain Efyfitr-[id number] Reductase AdvReac Abdominal Verified 05/05/24 16:33 Inhibitor Pain Review of Systems ROS Statement: Those systems with pertinent positive or pertinent negative responses have been documented in the HPI. ROS Other: All systems not noted in ROS Statement are negative. Constitutional: Denies: fever Eyes: Denies: eye pain ENT: Denies: ear pain Respiratory: Denies: cough Cardiovascular: Denies: chest pain Endocrine: Reports: as per HPI, fatigue Gastrointestinal: Denies: abdominal pain Genitourinary: Denies: dysuria Musculoskeletal: Denies: back pain Skin: Denies: rash Neurological: Reports: as per HPI. Denies: headache, weakness Past Medical History Past Medical History: Hearing Disorder / Deafness, Hyperlipidemia, Hypertension, Musculoskeletal Disorder, Prostate Disorder Additional Past Medical History / Comment(s): Back and bilateral knee pain. Enlarged prostate. Vertigo. Hard of hearing, worse in left ear. History of Any Multi-Drug Resistant Organisms: None Reported Past Surgical History: Coronary Bypass/CABG, Heart Catheterization With Stent Additional Past Surgical History / Comment(s): Quadruple bypass 14 yrs ago, left inner carotid, shamika filter. Past Anesthesia/Blood Transfusion Reactions: No Reported Reaction Additional Past Anesthesia/Blood Transfusion Reaction / Comment(s): Vertigo. Date of Last Stent Placement:: unk Past Psychological History: No Psychological Hx Reported Smoking Status: Never smoker Past Alcohol Use History: None Reported Past Drug Use History: None Reported - Past Family History Daughter(s) Family Medical History: Cancer Additional Family Medical History / Comment(s): Breast cancer. General Exam Limitations: no limitations General appearance: alert, in no apparent distress Head exam: Present: normocephalic Eye exam: Present: normal appearance, PERRL, EOMI ENT exam: Present: normal oropharynx Neck exam: Present: normal inspection Respiratory exam: Present: normal lung sounds bilaterally Cardiovascular Exam: Present: regular rate, normal rhythm GI/Abdominal exam: Present: soft. Absent: tenderness Extremities exam: Present: normal inspection Neurological exam: Present: alert, oriented X3, CN II-XII intact. Absent: motor sensory deficit Expanded Neurological exam: Present: protecting the airway Patient oriented to: Present: person, place, time Speech: Present: fluid speech Cranial nerves: EOM's Intact: Normal, Facial Sensation: Normal Sensory exam: Upper Extremity Light Touch: Normal, Lower Extremity Light Touch: Normal Motor strength exam: RUE: 5, LUE: 5, RLE: 5, LLE: 5 Eye Response: (4) open spontaneously Motor Response: (6) obeys commands Verbal Response: (5) oriented Psychiatric exam: Present: normal affect, normal mood Skin exam: Present: normal color Course Vital Signs 05/05/24 05/05/24 05/05/24 16:28 17:24 17:33 Temperature 97.8 F Pulse Rate 70 64 64 Respiratory 18 15 16 Rate Blood Pressure 122/68 128/66 O2 Sat by Pulse 96 94 L 95 Oximetry 05/05/24 05/05/24 05/05/24 17:48 18:03 20:48 Temperature 98.0 F Pulse Rate 60 70 54 L Respiratory 17 20 15 Rate Blood Pressure 128/66 136/75 O2 Sat by Pulse 95 96 96 Oximetry EKG Findings - EKG Results: EKG: interpreted by ERMD, sinus rhythm, normal axis, normal QRS, normal ST/T Medical Decision Making - Medical Decision Making Was pt. sent in by a medical professional or institution ([facility], [facility], urgent care, hospital, or custodial...) When possible be specific @ -No Did you speak to anyone other than the patient for history (EMS, parent, family, police, friend...)? What history was obtained from this source @ - is present helps provide history of her concerns with delayed speech Did you review nursing and triage notes (agree or disagree)? Why? @ -I reviewed and agree with nursing and triage notes Were old charts reviewed (outside hosp., previous admission, EMS record, old EKG, old radiological studies, urgent care reports/EKG's, custodial records)? Report findings @ -Previous admission reviewed including neurology notes Differential Diagnosis (chest pain, altered mental status, abdominal pain women, abdominal pain men, vaginal bleeding, weakness, fever, dyspnea, syncope, headache, dizziness, GI bleed, back pain, seizure, CVA, palpatations, mental health, musculoskeletal)? @ -Differential Altered Mental Status: Hypoglycemia, DKA, hypercapnia, ETOH, overdose, CO poisoning, trauma, myxedema coma, HTN encephalopathy, infection, encephalitis, psychosis, intercranial hemorrhage, hepatic encephalopathy, meningitis, CVA, this is not meant to be an all-inclusive list EKG interpreted by me (3pts min.). @ -As above X-rays interpreted by me (1pt min.). @ -Chest x-ray shows nonspecific findings CT interpreted by me (1pt min.). @ -CT scan of the brain without acute abnormality. U/S interpreted by me (1pt. min.). @ -None done What testing was considered but not performed or refused? (CT, X-rays, U/S, labs)? Why? @ -None What meds were considered but not given or refused? Why? @ -None Did you discuss the management of the patient with other professionals (professionals i.e. [facility], [facility], lab, RT, psych nurse, social science professor, speech therapy assistant, teacher, press officer, disease case manager)? Give summary @ -Case discussed with Dr. Sears who will admit covering Dr. Horton me Was smoking cessation discussed for >3mins.? @ -No Was critical care preformed (if so, how long)? @ -No Were there social determinants of health that impacted care today? How? (Homelessness, low income, unemployed, alcoholism, drug addiction, transportation, low edu. Level, literacy, decrease access to med. care, retirement, rehab)? @ -No Was there de-escalation of care discussed even if they declined (Discuss DNR or withdrawal of care, Hospice)? DNR status @ -No What co-morbidities impacted this encounter? (DM, HTN, Smoking, COPD, CAD, Cancer, CVA, ARF, Chemo, Hep., AIDS, mental health diagnosis, sleep apnea, morbid obesity)? @ -History of recent TIA Was patient admitted / discharged? Hospital course, mention meds given and route, prescriptions, significant lab abnormalities, going to OR and other pertinent info. @ -Patient presents with concerns for symptoms similar to his recent TIA. Examination and imaging unremarkable. Patient will be admitted with neuro consult. Patient reevaluated and updated. Undiagnosed new problem with uncertain prognosis? @ -No Drug Therapy requiring intensive monitoring for toxicity (Heparin, Nitro, Insulin, Cardizem)? @ -No Were any procedures done? @ -No Diagnosis/symptom? @ -Confusion Acute, or Chronic, or Acute on Chronic? @ -Acute Uncomplicated (without systemic symptoms) or Complicated (systemic symptoms)? @ -Default Side effects of treatment? @ -No Exacerbation, Progression, or Severe Exacerbation? @ -No Poses a threat to life or bodily function? How? (Chest pain, [place], [place], pneumonia, PE, COPD, DKA, ARF, appy, cholecystitis, CVA, Diverticulitis, Homicidal, Suicidal, threat to staff... and all critical care pts) @ -No - Lab Data Result diagrams: 05/05/24 17:31 05/05/24 17:31 Lab Results 05/05/24 05/05/24 05/05/24 Range/Units 17:31 17:31 17:31 WBC 7.1 (3.8-10.6) k/uL RBC 5.14 (4.30-5.90) m/uL Hgb 15.3 (13.0-17.5) gm/dL Hct 48.6 (39.0-53.0) % MCV 94.5 (80.0-100.0) fL MCH 29.8 (25.0-35.0) pg MCHC 31.6 (31.0-37.0) g/dL RDW 13.1 (11.5-15.5) % Plt Count 178 (150-450) k/uL MPV 9.0 Neutrophils % 62 % Lymphocytes % 20 % Monocytes % 10 % Eosinophils % 5 % Basophils % 1 % Neutrophils # 4.4 (1.3-7.7) k/uL Lymphocytes # 1.4 (1.0-4.8) k/uL Monocytes # 0.7 (0-1.0) k/uL Eosinophils # 0.3 (0-0.7) k/uL Basophils # 0.0 (0-0.2) k/uL PT 11.6 (10.0-12.5) sec INR 1.1 (<1.2) APTT 24.6 (22.0-30.0) sec Sodium 138 (137-145) mmol/L Potassium 4.2 (3.5-5.1) mmol/L Chloride 103 (98-107) mmol/L Carbon Dioxide 29 (22-30) mmol/L Anion Gap 6 mmol/L BUN 18 (9-20) mg/dL Creatinine 0.77 (0.66-1.25) mg/dL Est GFR (CKD-EPI)AfAm >90 (>60 ml/min/1.73 sqM) Est GFR (CKD-EPI)NonAf 88 (>60 ml/min/1.73 sqM) Glucose 98 (74-99) mg/dL Calcium 8.9 (8.4-10.2) mg/dL Total Bilirubin 0.5 (0.2-1.3) mg/dL AST 36 (17-59) U/L ALT 54 H (4-49) U/L Alkaline Phosphatase 59 (38-126) U/L Creatine Kinase 75 (55-170) U/L Troponin I (0.000-0.034) ng/mL Total Protein 6.7 (6.3-8.2) g/dL Albumin 4.0 (3.5-5.0) g/dL 05/05/24 Range/Units 17:31 WBC (3.8-10.6) k/uL RBC (4.30-5.90) m/uL Hgb (13.0-17.5) gm/dL Hct (39.0-53.0) % MCV (80.0-100.0) fL MCH (25.0-35.0) pg MCHC (31.0-37.0) g/dL RDW (11.5-15.5) % Plt Count (150-450) k/uL MPV Neutrophils % % Lymphocytes % % Monocytes % % Eosinophils % % Basophils % % Neutrophils # (1.3-7.7) k/uL Lymphocytes # (1.0-4.8) k/uL Monocytes # (0-1.0) k/uL Eosinophils # (0-0.7) k/uL Basophils # (0-0.2) k/uL PT (10.0-12.5) sec INR (<1.2) APTT (22.0-30.0) sec Sodium (137-145) mmol/L Potassium (3.5-5.1) mmol/L Chloride (98-107) mmol/L Carbon Dioxide (22-30) mmol/L Anion Gap mmol/L BUN (9-20) mg/dL Creatinine (0.66-1.25) mg/dL Est GFR (CKD-EPI)AfAm (>60 ml/min/1.73 sqM) Est GFR (CKD-EPI)NonAf (>60 ml/min/1.73 sqM) Glucose (74-99) mg/dL Calcium (8.4-10.2) mg/dL Total Bilirubin (0.2-1.3) mg/dL AST (17-59) U/L ALT (4-49) U/L Alkaline Phosphatase (38-126) U/L Creatine Kinase (55-170) U/L Troponin I <0.012 (0.000-0.034) ng/mL Total Protein (6.3-8.2) g/dL Albumin (3.5-5.0) g/dL Disposition Clinical Impression: Confusion Disposition: ADMITTED IP TO THIS HOSP Is patient prescribed a controlled substance at d/c from ED?: No Referrals: Miko Denis DO [Primary Care Provider] - 1-2 days Time of Disposition: 21:30
[2024-05-05 17:49] LABS: Basophils % (A) 1 %; Eosinophils # (A) 0.3 k/uL (0-0.7); Eosinophils % (A) 5 %; HCT 48.6 % (39.0-53.0); HGB 15.3 gm/dL (13.0-17.5); Lymphocytes # (A) 1.4 k/uL (1.0-4.8); Lymphocytes % (A) 20 %; MCH 29.8 pg (25.0-35.0); MCHC 31.6 g/dL (31.0-37.0); MCV 94.5 fL (80.0-100.0); Monocytes # (A) 0.7 k/uL (0-1.0); Monocytes % (A) 10 %; Neutrophils # (A) 4.4 k/uL (1.3-7.7); Neutrophils % (A) 62 %; Platelet Count 178 k/uL (150-450); RBC 5.14 m/uL (4.30-5.90); RDW 13.1 % (11.5-15.5); WBC 7.1 k/uL (3.8-10.6)
[2024-05-05 18:06] LABS: ALT 54 U/L (4-49); AST 36 U/L (17-59); African American GFR (CKD) >90 (>60 ml/min/1.73 sqM); Alkaline Phosphatase 59 U/L (38-126); Anion Gap 6 mmol/L; Blood Urea Nitrogen 18 mg/dL (9-20); Calcium 8.9 mg/dL (8.4-10.2); Carbon Dioxide 29 mmol/L (22-30); Chloride 103 mmol/L (98-107); Creatine Kinase 75 U/L (55-170); Glucose 98 mg/dL (74-99); Non-African American GFR(CKD) 88 (>60 ml/min/1.73 sqM); Potassium 4.2 mmol/L (3.5-5.1); Sodium 138 mmol/L (137-145); Total Bilirubin 0.5 mg/dL (0.2-1.3); Total Protein 6.7 g/dL (6.3-8.2)
[2024-05-05 18:12] LABS: INR 1.1 (<1.2); Partial Thromboplastin Time 24.6 sec (22.0-30.0); Prothrombin Time 11.6 sec (10.0-12.5)
--- NOTE | 2024-05-05 19:25 | CT ---
EXAMINATION TYPE: CT brain wo con CT DLP: 1284 mGycm, Automated exposure control for dose reduction was used. DATE OF EXAM: 05/05/2024 7:19 PM COMPARISON: CT brain C-spine 04/27/2023, CT brain 04/21/2024, CT IAC 07/01/2017, MR brain 04/22/2024 CLINICAL INDICATION:Male, 78 years old with history of Neuro deficit, acute, stroke suspected, TECHNIQUE: Brain: Multiple axial CT images of the brain were obtained without IV contrast. . Coronal and sagitta l reformats reviewed. FINDINGS: Brain: Extra-axial spaces: No abnormal extra-axial fluid collections. Ventricular system: Within normal limits Cerebral parenchyma: No acute intraparenchymal hemorrhage or mass effect. The boland-white junction is well differentiated. Scattered hypoattenuating areas are seen within the periventricular white matte r. Cerebellum: Unremarkable. Mass effect: No evidence of midline shift. Intracranial vasculature: Atherosclerotic calcifications of the intracranial vessels. Soft tissues: Normal. Calvarium/osseous structures: No depressed skull fracture. Paranasal sinuses and mastoid air cells: Mild scattered paranasal sinus disease. Cerumen within the b ilateral external auditory canals. Partial opacification of the inferior right mastoid air cells agai n. Visualized orbits: Orbital contents are intact. IMPRESSION: 1. No acute intracranial process. 2. Nonspecific white matter changes, likely secondary to chronic small vessel ischemic disease. 3. Right mastoid effusion redemonstrated. [facility], , 05/05/2024 7:23 PM
--- NOTE | 2024-05-05 19:35 | XR ---
EXAMINATION TYPE: XR chest 2V DATE OF EXAM: 05/05/2024 7:31 PM COMPARISON: Chest radiographs from 08/31/2022 TECHNIQUE: XR chest 2V Frontal and lateral views of the chest. CLINICAL INDICATION:Male, 78 years old with history of altered mental status; FINDINGS: Lungs/Pleura: There is no evidence of pleural effusion, focal consolidation, or pneumothorax. Stable scarring within the right midlung. Pulmonary vascularity: Unremarkable. Heart/mediastinum: Cardiomediastinal silhouette is stable. Post-CABG changes. Musculoskeletal: No acute osseous pathology. Midline sternotomy wires are noted and stable. IMPRESSION: Chronic changes without acute pulmonary process. [facility], , 05/05/2024 7:33 PM
[2024-05-05] MEDS: ASPIRIN 325 MG TAB PO STA (23:06)
[2024-05-05] MEDS: SODIUM CHLORIDE 0.9% 1,000 ML IV SCH (23:07)
[2024-05-06] MEDS ORDERED: NITROGLYCERIN SL TABS 0.4 MG TAB SUBLINGUAL PRN (00:14)
--- NOTE | 2024-05-06 03:11 | P.HPIM ---
History of Present Illness H&P Date: 05/05/24 Patient is a 78-year-old male with past medical history significant for CAD status post CABG x 4 (18 years ago), history of TIA, left ICA stent, hypertension, hyperlipidemia, chronic back pain presenting to the emergency department for concerns of sudden fatigue. He states that today around 3 PM he got "extremely fatigued" which lasted for about 20 minutes and is associated with generalized weakness. He was at rest when this occurred. He denies any associated symptoms but his states that he was speaking softer and slower than normal. Of note he was admitted on 04/21/2024 for similar symptoms and was diagnosed with TIA. He states that these symptoms today are similar to his TIA on 04/21/2024. At the time of the interview patient states that his symptoms have resolved. He denies fever/chills, nausea/vomiting, chest pain, dyspnea, vision changes, changes in balance or gait, extremity weakness, abdominal pain, hematuria, hematochezia/melena. He reports a cough that he has had for the last 6 to 8 weeks due to upper respiratory infection. At the time of interview he is at his baseline. Initial vitals: BP 128/66, MI 64 bpm, 98 F, 94% on room air Initial labs: WBC 7.1, hemoglobin 15.3, platelets 178, sodium 138, potassium 4.2, chloride 103, BUN 18, creatinine 0.77, troponin x 1: <0.012 Initial EKG: Normal sinus rhythm with ventricular rate 60 bpm, no ST segment changes, QTc [address]: No acute intracranial process, nonspecific white matter changes likely secondary to chronic small vessel ischemic disease, right mastoid effusion redemonstrated Chest x-ray: Chronic changes without pulmonary process ED documentation reviewed. Review of systems: Pertinent positives and negatives as discussed in HPI, a complete review of systems was performed and all other systems are negative. Social history: Tobacco: Never smoker Alcohol: None reported Recreational drugs: None reported Travel: None reported Sick contacts: None reported Physical examination: Vital signs reviewed General: Nontoxic, no distress, appears stated age, well-appearing Derm: Warm, dry, intact, no cyanosis Head: Atraumatic, normocephalic, symmetric Eyes: EOMI, anicteric sclera, PERRL Ears: Normal appearing, no external lesions, hearing intact Nose: Normal appearing, no external lesions Mouth: No lip lesion, mucus membranes moist, no tonsilar hypertrophy or exudate Neck: Supple, without lesions, trachea midline Cardiovascular: S1-S2 regular, no murmur, no pedal edema Lungs: CTA bilateral, no wheezes, no rhonchi, no rales, no accessory muscle use Abdominal: Soft, non-tender to palpation, bowel sounds present Extremities: Muscle strength 4/5 in lower extremities due to back pain, 5/5 in upper extremities, radial pulses 2+ bilateral, posterior tibial pulses 2+ bilateral Neuro: Alert, oriented x 4, gross neurological examination did not reveal any focal deficits. Cranial nerves II to XII grossly intact. Psych: Appropriate affect and mood Assessment and Plan: Patient is a 78-year-old male with past medical history significant for CAD status post CABG x 4 (18 years ago), history of TIA, left ICA stent, hypertension, hyperlipidemia, chronic back pain admitted for suspected TIA. Active #. Suspected TIA Brain CT: No acute intracranial process, nonspecific white matter changes likely secondary to chronic small vessel ischemic disease, right mastoid effusion redemonstrated Carotid Doppler on 04/21/2024: Moderate bilateral internal carotid artery stenosis, greater on the right ABCD2 score low risk Fall precautions ordered Continue with aspirin 325 mg p.o. daily Continue with Lipitor 80 mg p.o. at bedtime Hold home Plavix at this time, plan to resume as per neurology's recommendations Neurology consulted PT/OT consulted Speech consulted Chronic #. Hypertension Resume home medications #. Hyperlipidemia Resume home medications #. Chronic back pain Resume home medications DVT prophylaxis: Lovenox 40 mg subcutaneous daily The patient is admitted with an anticipated less than 2 midnight stay for evaluation of TIA CODE STATUS: Full code Anticipated discharge place: Pending clinical course Past Medical History Past Medical History: Hearing Disorder / Deafness, Hyperlipidemia, Hypertension, Musculoskeletal Disorder, Prostate Disorder Additional Past Medical History / Comment(s): Back and bilateral knee pain. Enlarged prostate. Vertigo. Hard of hearing, worse in left ear. History of Any Multi-Drug Resistant Organisms: None Reported Past Surgical History: Coronary Bypass/CABG, Heart Catheterization With Stent Additional Past Surgical History / Comment(s): Quadruple bypass 14 yrs ago, left inner carotid, shamika filter. Past Anesthesia/Blood Transfusion Reactions: No Reported Reaction Additional Past Anesthesia/Blood Transfusion Reaction / Comment(s): Vertigo. Date of Last Stent Placement:: unk Past Psychological History: No Psychological Hx Reported Smoking Status: Never smoker Past Alcohol Use History: None Reported Past Drug Use History: None Reported - Past Family History Daughter(s) Family Medical History: Cancer Additional Family Medical History / Comment(s): Breast cancer. Medications and Allergies Home Medications Medication Instructions Recorded Confirmed Type Ezetimibe [Zetia] 10 mg PO HS 07/11/21 04/22/24 History Famotidine 20 mg PO BID 07/11/21 04/22/24 History Losartan [Cozaar] 50 mg PO DAILY 07/11/21 04/22/24 History Primidone [Mysoline] 100 mg PO BID 07/11/21 04/22/24 History Rosuvastatin Calcium 40 mg PO DAILY 07/11/21 04/22/24 History Gabapentin 300 mg PO TID 08/05/21 04/22/24 History Meclizine [Antivert] 25 mg PO TID 08/05/21 04/22/24 History Tamsulosin [Flomax] 0.4 mg PO BID 08/05/21 04/22/24 History methocarbamoL [Robaxin] 500 mg PO BID 08/05/21 04/22/24 History traMADol HCL 50 mg PO QID PRN 08/05/21 04/22/24 History Aspirin EC [Ecotrin Low Dose] 81 mg PO DAILY 08/31/22 04/22/24 History Divalproex [Depakote] 250 mg PO BID 08/31/22 04/22/24 History Nitroglycerin Sl Tabs [Nitrostat] 0.4 mg SUBLINGUAL Q5M PRN 08/31/22 04/22/24 Hi story [place]-3/Dha/Epa/Fish Oil [Fish Oil 1 cap PO DAILY 08/31/22 04/22/24 History 1,000 mg Softgel] Sildenafil Citrate 50 mg PO DAILY PRN 08/31/22 04/22/24 History amLODIPine [Norvasc] 5 mg PO DAILY 08/31/22 04/22/24 History Butalb/Acetaminophen/Caffeine 1 tab PO DAILY PRN 04/27/23 04/22/24 History [Esgic 50-325-40 mg Tablet] Ibuprofen [Motrin] 600 mg PO BID PRN 04/27/23 04/22/24 History Lidocaine 5% Patch [Lidoderm 5% 1 patch TRANSDERM DAILY PRN 04/27/23 04/22/24 History Patch] Melatonin 3 mg PO HS 04/27/23 04/22/24 History Empagliflozin [Jardiance] 10 mg PO DAILY 04/22/24 04/22/24 History Erenumab-Aooe [Aimovig 140 mg SQ QMONTHLY 04/22/24 04/22/24 History Autoinjector] Clopidogrel [Plavix] 75 mg PO DAILY #30 tab 04/23/24 Rx Metoprolol Tartrate [Lopressor] 50 mg PO BID #60 tab 04/23/24 Rx Allergies Allergy/AdvReac Type Severity Reaction Status Date / Time fluvastatin [From Lescol] [facility] Verified 05/05/24 16:33 janina lisinopril AdvReac Cough Verified 05/05/24 16:33 simvastatin [From Zocor] AdvReac Abdominal Verified 05/05/24 16:33 Pain Xzzxzjr-VRP-HcV Reductase AdvReac Abdominal Verified 05/05/24 16:33 Inhibitor Pain Physical Exam Vitals: Vital Signs Temp Pulse Resp BP Pulse Ox 05/05/24 20:48 98.0 F 54 L 15 136/75 96 05/05/24 18:03 70 20 128/66 96 05/05/24 17:48 60 17 95 05/05/24 17:33 64 16 128/66 95 05/05/24 17:24 64 15 94 L 05/05/24 16:28 97.8 F 70 18 122/68 96 Intake and Output 05/05/24 05/05/24 05/05/24 06:59 14:59 22:59 Other: Weight 81.647 kg Results CBC & Chem 7: 05/05/24 17:31 05/05/24 17:31 Labs: Abnormal Lab Results - Last 24 Hours (Table) 05/05/24 Range/Units 17:31 ALT 54 H (4-49) U/L Thrombosis Risk Factor Assmnt - Choose All That Apply Each Risk Factor Represents 3 Points: Age 75 years or older Thrombosis Risk Factor Assessment Total Risk Factor Score: 3 Thrombosis Risk Factor Assessment Level: Moderate Risk
[2024-05-06] MEDS: DAPAGLIFLOZIN PROPANEDIOL 5 MG TABLET PO SCH (08:39)
[2024-05-06] MEDS: MECLIZINE 25 MG TAB PO SCH (08:39)
[2024-05-06] MEDS ORDERED: ATORVASTATIN 80 MG TAB PO SCH (09:00)
[2024-05-06] MEDS ORDERED: CLOPIDOGREL 75 MG TAB PO SCH (09:00)
[2024-05-06] MEDS: amLODIPine 5 MG TAB PO SCH (09:08)
[2024-05-06] MEDS: METOPROLOL TARTRATE 50 MG TAB PO SCH (09:08)
[2024-05-06] MEDS: LOSARTAN 50 MG TAB PO SCH (09:08)
[2024-05-06] MEDS: GABAPENTIN 300 MG CAP PO SCH (09:09)
[2024-05-06] MEDS: ASPIRIN 325 MG TAB PO SCH (09:09)
[2024-05-06] MEDS: TAMSULOSIN 0.4 MG CAP.ER.24H PO SCH (09:09)
[2024-05-06] MEDS: ENOXAPARIN 40 MG/0.4 ML SYRINGE SQ SCH (09:12)
[2024-05-06 09:32] LABS: Chol/HDL Ratio 2.75 Ratio
[2024-05-06 09:36] LABS: LDL Cholesterol,Calculated 40.8 mg/dL (0.0-131.0)
--- NOTE | 2024-05-06 11:39 | CT ---
EXAMINATION TYPE: CT angio head neck DATE OF EXAM: 05/06/2024 10:51 AM COMPARISON: None. CLINICAL INDICATION: Male, 78 years old with history of CVA, CVA. prior brain w/o done yesterday TECHNIQUE: CTA scan is performed with axial images are obtained, coronal and sagittal reformatted ivy ges are reviewed. 3-D reconstructed images are created on an independent workstation and reviewed. [facility] [place] images are reviewed. NASCET criteria was used in interpretation of this exam? Contrast used:65ml mL of Isovue 370 with IV Contrast, (none if empty) Oral contrast used: (none if empty) CT DLP: 522.9 mGycm, Automated exposure control for dose reduction was used. FINDINGS: Carotid/Vascular Structures: There is a common origin of the left common carotid artery and right sub clavian artery. Common carotid arteries bifurcate into internal and external carotid arteries without significant brigida w limiting stenosis. There is a stent within the left internal carotid artery. Calcified plaque is wi thin the right internal carotid artery origin. This is contributing to a 41% narrowing of the right i nternal carotid artery. Left internal carotid artery stent appears patent. Vertebral arteries are codominant. Internal carotid arteries and vertebral arteries are patent to the skull base. Cervical of [place]: Vertebral basilar system appears normal. Posterior cerebral vasculature is unrema rkable. Internal carotid arteries bifurcate normally into A1 and M1 segments. A2 segments are normal. The anterior communicating artery is patent. The right posterior communicating artery is patent. The left posterior communicating artery is patent. IMPRESSION: 1. No flow-limiting stenosis bilateral carotid bifurcations. Mild narrowing of 41% is at the right in ternal carotid artery. The stent on the left is patent. 2. Normal [place] [facility] [place] [facility], , 05/06/2024 11:37 AM
--- NOTE | 2024-05-06 15:49 | P.CNNES ---
History of Present Illness Consult date: 05/06/24 Requesting physician: Doni Santillan Reason for Consult: confusion, recent tia History of Present Illness: This is a 78-year-old gentleman who presents the emergency department because of diffuse fatigue. Patient stated that yesterday around 2:30 PM he was in his car and his was shopping at [employer] and he was waiting for an all of a sudden he noticed heavy fatigue throughout his body lasting between 1520 minutes. He denies any passing out episodes. Denies any tongue bite, urinary or bowel incontinence. Denies any focal weakness. Denies any drooling of the mouth. Denies having any speech difficulty or slurring of the speech. Denies any numbness. He feels back to baseline. He stated he had a similar episode about 2 weeks ago and he was hospitalized in our facility and was seen by our neurology team on 04/22/2024 and 04/23/2024 and there is a concern for transient ischemic attack since he stated that time he had fatigue as well as he felt his mouth was as if there is marbles but this time he did not have any marble. He denies any ptosis of the eyes. Denies feeling weak with walking. Denies f eeling in the towards the end of the week or improvement at the end as the day progresses. He is on aspirin 81 mg daily and Plavix 75 mg daily. Patient had MRI of the brain on last hospital visit which was negative for any acute process. Some of the workup during this hospital visit consisted of: CBC with differential is unremarkable Chemistry panel ALT is 54 but otherwise chemistry panel is unremarkable Lipid panel is triglyceride 124, cholesterol is 103, LDL is 40 and HDL is 37 CT of the head is reported as no acute intracranial process. Nonspecific white matter changes. Right mastoid effusion redemonstrated. I personally reviewed the CT and agree there is no acute process. CT angiography of the head and neck is reported as no flow-limiting stenosis bilateral carotid bifurcation. Mild narrowing 41% at the right internal carotid artery. The stent of the left is patent. Normal elim [place] of [place]. Review of Systems As per HPI. Past Medical History Past Medical History: Hearing Disorder / Deafness, Hyperlipidemia, Hypertension, Musculoskeletal Disorder, Prostate Disorder Additional Past Medical History / Comment(s): Back and bilateral knee pain. Enlarged prostate. Vertigo. Hard of hearing, worse in left ear. History of Any Multi-Drug Resistant Organisms: None Reported Past Surgical History: Coronary Bypass/CABG, Heart Catheterization With Stent Additional Past Surgical History / Comment(s): Quadruple bypass 18 yrs ago, left inner carotid, shamika filter. Past Anesthesia/Blood Transfusion Reactions: No Reported Reaction Additional Past Anesthesia/Blood Transfusion Reaction / Comment(s): Vertigo. Date of Last Stent Placement:: unk Past Psychological History: No Psychological Hx Reported Smoking Status: Never smoker Past Alcohol Use History: None Reported Past Drug Use History: None Reported - Past Family History Daughter(s) Family Medical History: Cancer Additional Family Medical History / Comment(s): Breast cancer. Medications and Allergies Home Medications Medication Instructions Recorded Confirmed Type Ezetimibe [Zetia] 10 mg PO HS 07/11/21 05/06/24 History Famotidine 20 mg PO BID 07/11/21 05/06/24 History Losartan [Cozaar] 50 mg PO DAILY 07/11/21 05/06/24 History Primidone [Mysoline] 100 mg PO BID 07/11/21 05/06/24 History Rosuvastatin Calcium 40 mg PO HS 07/11/21 05/06/24 History Gabapentin 300 mg PO TID 08/05/21 05/06/24 History Meclizine [Antivert] 25 mg PO TID PRN 08/05/21 05/06/24 History Tamsulosin [Flomax] 0.4 mg PO DAILY 08/05/21 05/06/24 History methocarbamoL [Robaxin] 500 mg PO BID PRN 08/05/21 05/06/24 History traMADol HCL 50 mg PO QID PRN 08/05/21 05/06/24 History Aspirin EC [Ecotrin Low Dose] 81 mg PO HS 08/31/22 05/06/24 History Divalproex [Depakote] 250 mg PO BID 08/31/22 05/06/24 History Nitroglycerin Sl Tabs [Nitrostat] 0.4 mg SUBLINGUAL Q5M PRN 08/31/22 05/06/24 History Sildenafil Citrate 50 mg PO DAILY PRN 08/31/22 05/06/24 History amLODIPine [Norvasc] 5 mg PO DAILY 08/31/22 05/06/24 History Butalb/Acetaminophen/Caffeine 1 tab PO DAILY PRN 04/27/23 05/06/24 History [Esgic 50-325-40 mg Tablet] Ibuprofen [Motrin] 600 mg PO BID PRN 04/27/23 05/06/24 History Lidocaine 5% Patch [Lidoderm 5% 1 patch TRANSDERM DAILY PRN 04/27/23 05/06/24 History Patch] Melatonin 3 mg PO HS 04/27/23 05/06/24 History Erenumab-Aooe [Aimovig 140 mg SQ QMONTHLY 04/22/24 05/06/24 History Autoinjector] Metoprolol Tartrate [Lopressor] 50 mg PO BID #60 tab 04/23/24 05/06/24 Rx Clopidogrel [Plavix] 75 mg PO HS 05/06/24 05/06/24 History Glucosamine Msm 1500mg 1,500 mg PO DAILY 05/06/24 05/06/24 History Tamsulosin [Flomax] 0.4 mg PO DAILY PRN 05/06/24 05/06/24 History Ubrogepant [Ubrelvy] 100 mg PO DIRECTED PRN 05/06/24 05/06/24 History Allergies Allergy/AdvReac Type Severity Reaction Status Date / Time fluvastatin [From Lescol] Allergy per [facility] Verified 05/06/24 08:40 janina lisinopril AdvReac Cough Verified 05/06/24 08:40 simvastatin [From Zocor] AdvReac Abdominal Verified 05/06/24 08:40 Pain Xenddwu-TJR-DnY Reductase AdvReac Abdominal Verified 05/06/24 08:40 Inhibitor Pain Physical Examination - Vital Signs Vital Signs: Vital Signs Temp Pulse Pulse Resp BP BP Pulse Ox 05/06/24 07:00 98.1 F 84 18 116/74 96 05/06/24 05:07 97.5 F L 60 14 122/64 96 05/06/24 00:26 98.5 F 65 16 135/69 98 05/05/24 20:48 98.0 F 54 L 15 136/75 96 05/05/24 18:03 70 20 128/66 96 05/05/24 17:48 60 17 95 05/05/24 17:33 64 16 128/66 95 05/05/24 17:24 64 15 94 L 05/05/24 16:28 97.8 F 70 18 122/68 96 Intake and Output 05/06/24 05/06/24 05/06/24 06:59 14:59 22:59 Other: Weight 81.647 kg GENERAL: The patient is lying in bed and is not in acute distress. NEUROLOGICAL: Higher mental function: The patient is awake, alert, oriented to self, place and time. Patient is following commands. No aphasia and no neglect. Cranial nerves: The pupils are round, equal and reactive to light and accommodation. Visual gomez are full to confrontation throughout. Extraocular movement is intact no nystagmus is noted. Facial sensation is normal to touch throughout. The facial strength is normal throughout. Hearing is severely decreased bilaterally to hand rub (chronic). Tongue is midline and moved [id number] without any difficulty. No dysarthria is noted. Shoulder shrug is normal bilaterally. Motor: The strength is 5 over 5 throughout. Normal tone and bulk. Cerebellum: Normal finger to nose bilaterally. Sensation: Sensation is normal to touch throughout. Reflexes (right/left): 1+ throughout. Plantars are downgoing bilaterally. Results - Laboratory Findings CBC and BMP: 05/05/24 17:31 05/05/24 17:31 Abnormal Lab Findings: Abnormal Labs 05/05/24 05/05/24 17:31 17:31 ALT 54 H HDL Cholesterol 37.40 L Assessment and Plan Assessment: This is a 78-year-old gentleman present emergency department since yesterday around 230 he was sitting in his car and felt diffuse fatigue lasting 15 to 20 minutes. Denies any focal weakness. Denies any speech difficulty. He had similar event about 2 weeks ago but at that time in addition he had sensation of felt "there is marble in mouth". Prior recent hospitalization MRI Brain was negative for acute process. Recurrent sensation of diffuse fatigue this transient: Unknown exact etiology. Recent concern for TIA with fatigue, dysarthria restive aphasia and had a stroke workup History of carotid stenosis status post stent Severe hearing loss Chronic low back pain Plan: MRI of the brain is ordered by the primary team I ordered routine EEG any active seizure or discharges can be contributed symptom I also ordered acetylcholine receptor antibody as well as musk antibody to rule out any underlying questionable myasthenia gravis because of recurrent fatigue and episode of slurred speech which I fell unlikely. 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 Time with Patient: Greater than 30
--- NOTE | 2024-05-06 15:59 | P.PN ---
Subjective Progress Note Date: 05/06/24 Hospital Course: Patient is a 78-year-old male with past medical history significant for CAD st atus post CABG x 4 (18 years ago), history of TIA, left ICA stent, hypertension, hyperlipidemia, chronic back pain presenting to the emergency department for concerns of sudden fatigue. He states that today around 3 PM he got "extremely fatigued" which lasted for about 20 minutes and is associated with generalized weakness. He was at rest when this occurred. He denies any associated symptoms but his states that he was speaking softer and slower than normal. Of note he was admitted on 04/21/2024 for similar symptoms and was diagnosed with TIA. He states that these symptoms today are similar to his TIA on 04/21/2024. At the time of the interview patient states that his symptoms have resolved. He denies fever/chills, nausea/vomiting, chest pain, dyspnea, vision changes, changes in balance or gait, extremity weakness, abdominal pain, hematuria, hematochezia/melena. He reports a cough that he has had for the last 6 to 8 weeks due to upper respiratory infection. At the time of interview he is at his baseline. Brain CT: No acute intracranial process, nonspecific white matter changes likely secondary to chronic small vessel ischemic disease, right mastoid effusion redemonstrated. Patient was admitted for further CVA workup with neurology consult. Patient with strong history of carotid artery stenosis, CTA head ordered and showed no flow-limiting stenosis bilateral carotid bifurcation, mild narrowing 41% in the right internal carotid artery, the stent on the left carotid artery is patent, normal [place] of [place]. MRI brain pending. Neurology recommended EEG, acetylcholine receptor antibody, vitamin B12, folate, patient was resumed on home DAPT with aspirin 81 and Plavix 75, Lipitor 80 mg nightly. Patient will need to follow-up with neurology in 2 or 3 weeks after discharge Pertinent Imaging: CTA head as above Subjective: Reports fatigue, no neurological symptoms, denies chest pain, shortness of breath Pertinent positives and negatives as discussed above, a complete review of systems was performed and all other systems are negative. Vitals Signs Reviewed. General: [nontoxic], [no distress], [appears at stated age] Derm: [warm], [dry] Head: [atraumatic], [normocephalic], [symmetric] Eyes: [EOMI], [no lid lag], [anicteric sclera] Mouth: [no lip lesion], [mucus membranes moist] Cardiovascular: [S1S2 reg], [no murmur] Lungs: [CTA bilateral], [no rhonchi, no rales] , [no accessory muscle use] Abdominal: [soft], [ nontender to palpation], [no guarding], [no appreciable organomegaly] Ext: [no gross muscle atrophy], [no edema], [no contractures] Neuro: [ CN II-XI grossly intact], [no focal neuro deficits] Psych: [Alert], [oriented], [appropriate affect] Data Reviewed Today: Pertinent Labs: No new blood work Assessment and Plan: Transient aphasia, possible TIA Recent TIA with dysarthria and receptive aphasia History of carotid stenosis status post stent placement -Neurology consulted, patient was resumed on DAPT with aspirin 81 and Plavix 75 mg -Continue high intensity statins with Lipitor 80 mg nightly -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, 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 -Brain MRI ordered and pending -Neurology ordered EEG and acetylcholine receptor antibody, vitamin B12, folate, patient will need to follow-up with neurology in 2 to 3 weeks Hypertension Resume home medications Hyperlipidemia Resume home medications Chronic back pain Resume home medications DVT prophylaxis: Lovenox 40 mg subcutaneous daily CODE STATUS: Full code Anticipated discharge place: home, in 24 hours Objective - Vital Signs Vital signs: Vital Signs Temp 98.1 F 05/06/24 07:00 Pulse 84 05/06/24 07:00 Resp 18 05/06/24 07:00 BP 116/74 05/06/24 07:00 Pulse Ox 96 05/06/24 07:00 FiO2 Intake & Output 05/05/24 05/06/24 05/06/24 18:59 06:59 18:59 Weight 81.647 kg 81.647 kg - Labs CBC & Chem 7: 05/05/24 17:31 05/05/24 17:31 Labs: Abnormal Lab Results - Last 24 Hours (Table) 05/05/24 05/05/24 Range/Units 17:31 17:31 ALT 54 H (4-49) U/L HDL Cholesterol 37.40 L (40.00-60.00) mg/dL
[2024-05-06] MEDS: CLOPIDOGREL 75 MG TAB PO SCH (17:40)
[2024-05-06] MEDS: EZETIMIBE 10 MG TAB PO SCH (19:53)
[2024-05-06] MEDS: ATORVASTATIN 80 MG TAB PO SCH (19:54)
[2024-05-06] MEDS: MELATONIN 3 MG TABLET PO SCH (20:58)
--- NOTE | 2024-05-06 23:05 | EEG ---
ELECTROENCEPHALOGRAM REPORT CLINICAL HISTORY: This is a 78-year-old gentleman with recurrent fatigue. The video EEG is obtained to evaluate for seizure epileptiform activity. RELEVANT MEDICATION: Gabapentin. EEG TYPE: This is a routine 21-channel EEG with video using the 10/20 electrode placement system. DESCRIPTION: Wakefulness is only obtained. During awake state, the posterior-dominant rhythm consists of [id number] voltage of 9 to 10 hertz activity that is well modulated and well sustained. There is no physiological stage 2 sleep architecture. There is no focal slowing. There is diffuse mild to moderate myogenic artifact. Interictal and ictal is none. ACTIVATION PROCEDURE: Photic stimulation did not evoke a posterior driving response. There is no abnormality during the photic stimulation. Hyperventilation is not performed. CLINICAL INTERPRETATION: This is a normal routine EEG. There is no focal slowing, epileptiform discharge, or seizure on the EEG. A normal routine EEG does not rule out underlying epilepsy. Clinical correlation is recommended. MMSHADE / CIERRA: [id number] /
[2024-05-07] MEDS: ASPIRIN 81 MG PO SCH (09:08)
--- NOTE | 2024-05-07 15:29 | P.PN ---
Subjective Progress Note Date: 05/07/24 I am following-up with patient and he feels he is back go baseline and denies any new neurological issues. Objective - Vital Signs Vital signs: Vital Signs Temp 97.4 F L 05/07/24 07:15 Pulse 50 L 05/07/24 07:15 Resp 16 05/07/24 07:15 BP 123/67 05/07/24 07:15 Pulse Ox 94 L 05/07/24 07:15 FiO2 Intake & Output 05/06/24 05/07/24 05/07/24 18:59 06:59 18:59 Intake Total 240 620 Balance 240 620 Weight 81.647 kg Intake: Oral 240 620 Other: # Voids 4 1 - Exam GENERAL: The patient is lying in bed and is not in acute distress. NEUROLOGICAL: Higher mental function: The patient is awake, alert, oriented to self, place and time. Patient is following commands. No aphasia and no neglect. Cranial nerves: The pupils are round, equal and reactive to light and accommodation. Visual gomez are full to confrontation throughout. Extraocular movement is intact no nystagmus is noted. Facial sensation is normal to touch throughout. The facial strength is normal throughout. Hearing is severely decreased bilaterally to hand rub (chronic). Tongue is midline and moved [id number] without any difficulty. No dysarthria is noted. Shoulder shrug is normal bilaterally. Motor: The strength is 5 over 5 throughout. Normal tone and bulk. Cerebellum: Normal finger to nose bilaterally. Sensation: Sensation is normal to touch throughout. Reflexes (right/left): 1+ throughout. Plantars are downgoing bilaterally. Some of the workup during this hospital visit consisted of: CBC with differential is unremarkable Chemistry panel ALT is 54 but otherwise chemistry panel is unremarkable Lipid panel is triglyceride 124, cholesterol is 103, LDL is 40 and HDL is 37 B12: 427 Folate: 11.90 CT of the head is reported as no acute intracranial process. Nonspecific white matter changes. Right mastoid effusion redemonstrated. I personally reviewed the CT and agree there is no acute process. CT angiography of the head and neck is reported as no flow-limiting stenosis bilateral carotid bifurcation. Mild narrowing 41% at the right internal carotid artery. The stent of the left is patent. Normal [place]. Routine EEG: Normal. - Labs CBC & Chem 7: 05/05/24 17:31 05/05/24 17:31 Assessment and Plan Assessment: This is a 78-year-old gentleman present emergency department since yesterday around 230 he was sitting in his car and felt diffuse fatigue lasting 15 to 20 minutes. Denies any focal weakness. Denies any speech difficulty. He had similar event about 2 weeks ago but at that time in addition he had sensation of felt "there is marble in mouth". Prior recent hospitalization MRI Brain was negative for acute process. Recurrent sensation of diffuse fatigue this transient: Unknown exact etiology. Recent concern for TIA with fatigue, dysarthria restive aphasia and had a stroke workup History of carotid stenosis status post stent Severe hearing loss Chronic low back pain Plan: MRI of the brain is ordered by the primary team Pending acetylcholine receptor antibody as well as musk antibody to rule out any underlying questionable myasthenia gravis because of recurrent fatigue and episode of slurred speech which I fell unlikely. 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 Time with Patient: Less than 30
--- NOTE | 2024-05-07 19:28 | P.PN ---
Subjective Progress Note Date: 05/07/24 Hospital Course: Patient is a 78-year-old male with past medical history significant for CAD st atus post CABG x 4 (18 years ago), history of TIA, left ICA stent, hypertension, hyperlipidemia, chronic back pain presenting to the emergency department for concerns of sudden fatigue. He states that today around 3 PM he got "extremely fatigued" which lasted for about 20 minutes and is associated with generalized weakness. He was at rest when this occurred. He denies any associated symptoms but his states that he was speaking softer and slower than normal. Of note he was admitted on 04/21/2024 for similar symptoms and was diagnosed with TIA. He states that these symptoms today are similar to his TIA on 04/21/2024. At the time of the interview patient states that his symptoms have resolved. He denies fever/chills, nausea/vomiting, chest pain, dyspnea, vision changes, changes in balance or gait, extremity weakness, abdominal pain, hematuria, hematochezia/melena. He reports a cough that he has had for the last 6 to 8 weeks due to upper respiratory infection. At the time of interview he is at his baseline. Brain CT: No acute intracranial process, nonspecific white matter changes likely secondary to chronic small vessel ischemic disease, right mastoid effusion redemonstrated. Patient was admitted for further CVA workup with neurology consult. Patient with strong history of carotid artery stenosis, CTA head ordered and showed no flow-limiting stenosis bilateral carotid bifurcation, mild narrowing 41% in the right internal carotid artery, the stent on the left carotid artery is patent, normal [place] of [place]. MRI brain pending. Neurology recommended EEG, acetylcholine receptor antibody, vitamin B12, folate, patient was resumed on home DAPT with aspirin 81 and Plavix 75, Lipitor 80 mg nightly. Patient will need to follow-up with neurology in 2 or 3 weeks after discharge Pertinent Imaging: CTA head as above Subjective: Reports fatigue, no neurological symptoms, denies chest pain, shortness of breath Pertinent positives and negatives as discussed above, a complete review of systems was performed and all other systems are negative. Vitals Signs Reviewed. General: [nontoxic], [no distress], [appears at stated age] Derm: [warm], [dry] Head: [atraumatic], [normocephalic], [symmetric] Eyes: [EOMI], [no lid lag], [anicteric sclera] Mouth: [no lip lesion], [mucus membranes moist] Cardiovascular: [S1S2 reg], [no murmur] Lungs: [CTA bilateral], [no rhonchi, no rales] , [no accessory muscle use] Abdominal: [soft], [ nontender to palpation], [no guarding], [no appreciable organomegaly] Ext: [no gross muscle atrophy], [no edema], [no contractures] Neuro: [ CN II-XI grossly intact], [no focal neuro deficits] Psych: [Alert], [oriented], [appropriate affect] Data Reviewed Today: Pertinent Labs: No new blood work Assessment and Plan: Transient aphasia, possible TIA Recent TIA with dysarthria and receptive aphasia History of carotid stenosis status post stent placement -Neurology consulted, patient was resumed on DAPT with aspirin 81 and Plavix 75 mg -Continue high intensity statins with Lipitor 80 mg nightly -PT OT, ENGAGEMENT 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 -Brain MRI ordered and pending -Neurology ordered EEG and acetylcholine receptor antibody, vitamin B12, folate, patient will need to follow-up with neurology in 2 to 3 weeks Hypertension Resume home medications Hyperlipidemia Resume home medications Chronic back pain Resume home medications DVT prophylaxis: Lovenox 40 mg subcutaneous daily CODE STATUS: Full code Anticipated discharge place: stable, plan to go home, delayed discharge due to pending MRI read Objective - Vital Signs Vital signs: Vital Signs Temp 98.6 F 05/07/24 15:38 Pulse 58 L 05/07/24 15:38 Resp 16 05/07/24 15:38 BP 114/63 05/07/24 15:38 Pulse Ox 95 05/07/24 15:38 FiO2 Intake & Output 05/07/24 05/07/24 05/08/24 06:59 18:59 06:59 Intake Total 1328 Balance 1328 Intake: Oral 1328 Other: # Voids 4 1 - Labs CBC & Chem 7: 05/05/24 17:31 05/05/24 17:31
--- NOTE | 2024-05-07 20:14 | MR ---
EXAMINATION TYPE: MR brain wo con DATE OF EXAM: 05/07/2024 4:18 PM COMPARISON: None. CLINICAL INDICATION: Male, 78 years old with history of CVA, CVA TECHNIQUE: Multiplanar, multiecho imaging on a 3.0 Enriqueta magnet is performed through the brain. Stud y is performed within 24 hours of arrival to the hospital.Multiplanar, multiecho imaging on a 3.0 Dorinda la magnet is performed through the knee. IV Contrast: mL (None, if empty) FINDINGS: The craniovertebral junction is normal. The pituitary is normal. Diffusion-weighted imaging is performed. No abnormal hyperintensity is present to suggest an acute i ntracranial infarct or acute ischemic change. There are multiple scattered punctate areas of hyperintensity on T2 and Inversion Recovery weighted s equences which are non-specific but can be related to microvascular ischemic changes. Ventricles and sulci are appropriate for the patient age. Right mastoid air cell fluid is present. Correlate for acute right mastoiditis. Left mastoid air cell s clear. Some mucosal thickening within maxillary sinuses. Some mucosal thickening in the bilateral f rontal ethmoid air cells. Frontal sinuses are clear. Sphenoid sinuses are clear as visualized. IMPRESSION: 1. Multiple scattered bilateral deep white matter changes are nonspecific but can be related to micro vascular ischemic change. 2. No suspicious acute intracranial process. 3. Clinical correlation recommended for right mastoiditis. [facility], , 05/07/2024 8:11 PM
--- NOTE | 2024-05-08 07:40 | P.DS ---
Providers Date of admission: 05/05/24 21:33 Attending physician: Blu Sears MD Consults: 05/05/24 21:33 Consult Physician Routine Consulting Provider: Walter Cabello Consult Reason/Comments: confusion, recent tia Do you want consulting provider notified?: Yes Primary care physician: Miko Denis Hospital Course: Discharge Diagnosis: Transient aphasia, possible TIA Recent TIA with dysarthria and receptive aphasia History of carotid stenosis status post stent placement HTN HLD Chronic back pain Hospital Course: Patient is a 78-year-old male with past medical history significant for CAD status post CABG x 4 (18 years ago), history of TIA, left ICA stent, hypertension, hyperlipidemia, chronic back pain presenting to the emergency department for concerns of sudden fatigue. He states that today around 3 PM he got "extremely fatigued" which lasted for about 20 minutes and is associated with generalized weakness. He was at rest when this occurred. He denies any associated symptoms but his states that he was speaking softer and slower than normal. Of note he was admitted on 04/21/2024 for similar symptoms and was diagnosed with TIA. He states that these symptoms today are similar to his TIA on 04/21/2024. At the time of the interview patient states that his symptoms have resolved. He denies fever/chills, nausea/vomiting, chest pain, dyspnea, vision changes, changes in balance or gait, extremity weakness, abdominal pain, hematuria, hematochezia/melena. He reports a cough that he has had for the last 6 to 8 weeks due to upper respiratory infection. At the time of interview he is at his baseline. Brain CT: No acute intracranial process, nonspecific white matter changes likely secondary to chronic small vessel ischemic disease, right mastoid effusion redemonstrated. Patient was admitted for further CVA workup with neurology consult. Patient with strong history of carotid artery stenosis, CTA head ordered and showed no flow-limiting stenosis bilateral carotid bifurcation, mild narrowing 41% in the right internal carotid artery, the stent on the left carotid artery is patent, normal [facility] [place] [facility] [place]. MRI brain showed multiple scattered bilateral deep white matter changes. Neurology recommended EEG -normal, acetylcholine receptor antibody, vitamin B12, folate, patient was resumed on home DAPT with aspirin 81 and Plavix 75, Lipitor 80 mg nightly. Patient will need to follow-up with neurology in 2 or 3 weeks after discharge Cleared for discharge by neurology Patient seen and examined at bedside Vital signs reviewed and stable. General: [nontoxic], [no distress], [appears at stated age] Derm: [warm], [dry] Head: [atraumatic], [normocephalic], [symmetric] Eyes: [EOMI], [no lid lag], [anicteric sclera] Mouth: [no lip lesion], [mucus membranes moist] Cardiovascular: [S1S2 reg], [no murmur] Lungs: [CTA bilateral], [no rhonchi, no rales] , [no accessory muscle use] Abdominal: [soft], [ nontender to palpation], [no guarding], [no appreciable organomegaly] Ext: [no gross muscle atrophy], [no edema], [no contractures] Neuro: [ CN II-XI grossly intact], [no focal neuro deficits] Psych: [Alert], [oriented], [appropriate affect] A total of 40 minutes of time were spent preparing this complex discharge summary. Patient was discharged on 05/08/2024. Plan - Discharge Summary New Discharge Prescriptions: New Dapagliflozin Propanediol [Farxiga] 5 mg PO DAILY tab Continue Famotidine 20 mg PO BID traMADol HCL 50 mg PO QID PRN PRN Reason: Pain Gabapentin 300 mg PO TID amLODIPine [Norvasc] 5 mg PO DAILY Aspirin EC [Ecotrin Low Dose] 81 mg PO HS Lidocaine 5% Patch [Lidoderm 5% Patch] 1 patch TRANSDERM DAILY PRN PRN Reason: Pain Ibuprofen [Motrin] 600 mg PO BID PRN PRN Reason: Pain Or Fever > 100.5 Butalb/Acetaminophen/Caffeine [Esgic 50-325-40 mg Tablet] 1 tab PO DAILY PRN PRN Reason: Migraine Headache Tamsulosin [Flomax] 0.4 mg PO DAILY PRN PRN Reason: urniary issues Glucosamine Msm 1500mg 1,500 mg PO DAILY Ubrogepant [Ubrelvy] 100 mg PO DIRECTED PRN PRN Reason: Migraine Headache Ezetimibe [Zetia] 10 mg PO HS Losartan [Cozaar] 50 mg PO DAILY Rosuvastatin Calcium 40 mg PO HS Primidone [Mysoline] 100 mg PO BID Meclizine [Antivert] 25 mg PO TID PRN PRN Reason: Vertigo methocarbamoL [Robaxin] 500 mg PO BID PRN PRN Reason: Muscle Spasm Tamsulosin [Flomax] 0.4 mg PO DAILY Nitroglycerin Sl Tabs [Nitrostat] 0.4 mg SUBLINGUAL Q5M PRN PRN Reason: Chest Pain Divalproex [Depakote] 250 mg PO BID Sildenafil Citrate 50 mg PO DAILY PRN PRN Reason: E.D. Melatonin 3 mg PO HS Erenumab-Aooe [Aimovig Autoinjector] 140 mg SQ QMONTHLY Metoprolol Tartrate [Lopressor] 50 mg PO BID #60 tab Clopidogrel [Plavix] 75 mg PO HS Discharge Medication List Ezetimibe [Zetia] 10 mg PO HS 07/11/21 [History] Famotidine 20 mg PO BID 07/11/21 [History] Losartan [Cozaar] 50 mg PO DAILY 07/11/21 [History] Primidone [Mysoline] 100 mg PO BID 07/11/21 [History] Rosuvastatin Calcium 40 mg PO HS 07/11/21 [History] Gabapentin 300 mg PO TID 08/05/21 [History] Meclizine [Antivert] 25 mg PO TID PRN 08/05/21 [History] Tamsulosin [Flomax] 0.4 mg PO DAILY 08/05/21 [History] methocarbamoL [Robaxin] 500 mg PO BID PRN 08/05/21 [History] traMADol HCL 50 mg PO QID PRN 08/05/21 [History] Aspirin EC [Ecotrin Low Dose] 81 mg PO HS 08/31/22 [History] Divalproex [Depakote] 250 mg PO BID 08/31/22 [History] Nitroglycerin Sl Tabs [Nitrostat] 0.4 mg SUBLINGUAL Q5M PRN 08/31/22 [History] Sildenafil Citrate 50 mg PO DAILY PRN 08/31/22 [History] amLODIPine [Norvasc] 5 mg PO DAILY 08/31/22 [History] Butalb/Acetaminophen/Caffeine [Esgic 50-325-40 mg Tablet] 1 tab PO DAILY PRN 04/27/23 [History] Ibuprofen [Motrin] 600 mg PO BID PRN 04/27/23 [History] Lidocaine 5% Patch [Lidoderm 5% Patch] 1 patch TRANSDERM DAILY PRN 04/27/23 [History] Melatonin 3 mg PO HS 04/27/23 [History] Erenumab-Aooe [Aimovig Autoinjector] 140 mg SQ QMONTHLY 04/22/24 [History] Metoprolol Tartrate [Lopressor] 50 mg PO BID #60 tab 04/23/24 [Rx] Clopidogrel [Plavix] 75 mg PO HS 05/06/24 [History] Glucosamine Msm 1500mg 1,500 mg PO DAILY 05/06/24 [History] Tamsulosin [Flomax] 0.4 mg PO DAILY PRN 05/06/24 [History] Ubrogepant [Ubrelvy] 100 mg PO DIRECTED PRN 05/06/24 [History] Dapagliflozin Propanediol [Farxiga] 5 mg PO DAILY tab 05/07/24 [Rx] Follow up Appointment(s)/Referral(s): Miko Denis DO [Primary Care Provider] - 1-2 days Walter Cabello MD [STAFF PHYSICIAN] - 1 Week Activity/Diet/Wound Care/Special Instructions: Please, follow up with your PCP and neurology Discharge Disposition: HOME SELF-CARE
[2024-05-08 08:27] VITALS: BP 136/72; PULSE 63; RESP 16; TEMP 98.3
== END 2024-05-08 10:13 | disposition home or self-care (01) ==
LOC: EC 16:13 → 6NMEDSUR 21:33
PROVIDERS: ADMIT Internal Medicine; ATTEND Internal Medicine
DX: R47.01 Aphasia (principal); R47.1 Dysarthria and anarthria; R53.83 Other fatigue; R41.0 Disorientation, unspecified; G89.29 Other chronic pain; M54.50 Low back pain, unspecified; H91.90 Unspecified hearing loss, unspecified ear; I65.23 Occlusion and stenosis of bilateral carotid arteries; I10 Essential (primary) hypertension; E78.5 Hyperlipidemia, unspecified; N40.0 Benign prostatic hyperplasia without lower urinary tract symptoms; I25.10 Atherosclerotic heart disease of native coronary artery without angina pectoris; Z86.73 Personal history of transient ischemic attack (TIA), and cerebral infarction without residual deficits; Z95.5 Presence of coronary angioplasty implant and graft; Z79.02 Long term (current) use of antithrombotics/antiplatelets; Z79.82 Long term (current) use of aspirin; Z79.84 Long term (current) use of oral hypoglycemic drugs; Z79.899 Other long term (current) drug therapy
CPT/HCPCS: 96372; 99285; 36415; 95819; 93005; 86041; 80061; 80053; 82607; 82550; 82746; 84484; 85025; 85610; 85730; 71046; 70496; 70450; 70498; 70551; G0378 ×4; J1650

== ENCOUNTER 2024-07-23 17:51 | Emergency (ER) | payer OTHER ==
--- NOTE | 2024-07-23 18:57 | XR ---
EXAMINATION TYPE: XR knee complete RT DATE OF EXAM: 07/23/2024 6:52 PM INDICATION: Patient age:Male; 78 years old; Reason for study: fall ankle knee pain; PHH. pain COMPARISON: Right knee radiograph 03/26/2021, MR right knee 01/04/2021 TECHNIQUE: The Right knee(s) was examined in Frontal, lateral and oblique projections. FINDINGS: No evidence of any acute osseous pathology, soft tissue swelling, or joint effusion is no marky. Mild tricompartmental joint space narrowing without sclerosis or osteophyte formation. Vascular sclerosis. IMPRESSION: No acute osseous pathology. [facility], , 07/23/2024 6:55 PM
--- NOTE | 2024-07-23 18:58 | XR ---
EXAMINATION TYPE: XR ankle complete RT DATE OF EXAM: 07/23/2024 COMPARISON: NONE HISTORY: Pain TECHNIQUE: Frontal, lateral and oblique images of the right ankle are obtained. FINDINGS: There is no acute fracture/dislocation evident. The joint spaces appear within normal [place] its. The overlying soft tissue appears unremarkable. Vascular sclerosis. IMPRESSION: There is no acute fracture or dislocation seen. [facility], , 07/23/2024 6:55 PM
--- NOTE | 2024-07-23 19:09 | ED ---
Lower Extremity Injury HPI - General Chief Complaint: Extremity Injury, Lower Stated Complaint: R leg and foot injury Time Seen by Provider: 07/23/24 18:58 Source: patient, family, RN notes reviewed Mode of arrival: ambulatory Limitations: no limitations - History of Present Illness Initial Comments: This is a 78-year-old male who presents to the emergency department for right knee and ankle pain. Patient states that earlier this afternoon he got tangled in his dog's leash and twisted his knee and ankle. He has since had discomfort over these areas. He is still able to ambulate. Denies sustaining any other injuries. He has not yet taken anything for pain control, but does have tramadol he can take at home if needed. MD Complaint: knee injury, ankle injury - Related Data Home Medications Medication Instructions Recorded Confirmed Ezetimibe [Zetia] 10 mg PO HS 07/11/21 05/06/24 Famotidine 20 mg PO BID 07/11/21 05/06/24 Losartan [Cozaar] 50 mg PO DAILY 07/11/21 05/06/24 Primidone [Mysoline] 100 mg PO BID 07/11/21 05/06/24 Rosuvastatin Calcium 40 mg PO HS 07/11/21 05/06/24 Gabapentin 300 mg PO TID 08/05/21 05/06/24 Meclizine [Antivert] 25 mg PO TID PRN 08/05/21 05/06/24 Tamsulosin [Flomax] 0.4 mg PO DAILY 08/05/21 05/06/24 methocarbamoL [Robaxin] 500 mg PO BID PRN 08/05/21 05/06/24 traMADol HCL 50 mg PO QID PRN 08/05/21 05/06/24 Aspirin EC [Ecotrin Low Dose] 81 mg PO HS 08/31/22 05/06/24 Divalproex [Depakote] 250 mg PO BID 08/31/22 05/06/24 Nitroglycerin Sl Tabs [Nitrostat] 0.4 mg SUBLINGUAL Q5M PRN 08/31/22 05/06/24 Sildenafil Citrate 50 mg PO DAILY PRN 08/31/22 05/06/24 amLODIPine [Norvasc] 5 mg PO DAILY 08/31/22 05/06/24 Butalb/Acetaminophen/Caffeine 1 tab PO DAILY PRN 04/27/23 05/06/24 [Esgic 50-325-40 mg Tablet] Ibuprofen [Motrin] 600 mg PO BID PRN 04/27/23 05/06/24 Lidocaine 5% Patch [Lidoderm 5% 1 patch TRANSDERM DAILY PRN 04/27/23 05/06/24 Patch] Melatonin 3 mg PO HS 04/27/23 05/06/24 Erenumab-Aooe [Aimovig 140 mg SQ QMONTHLY 04/22/24 05/06/24 Autoinjector] Clopidogrel [Plavix] 75 mg PO HS 05/06/24 05/06/24 Glucosamine Msm 1500mg 1,500 mg PO DAILY 05/06/24 05/06/24 Tamsulosin [Flomax] 0.4 mg PO DAILY PRN 05/06/24 05/06/24 Ubrogepant [Ubrelvy] 100 mg PO DIRECTED PRN 05/06/24 05/06/24 Previous Rx's Medication Instructions Recorded Metoprolol Tartrate [Lopressor] 50 mg PO BID #60 tab 04/23/24 Dapagliflozin Propanediol [Farxiga] 5 mg PO DAILY tab 05/07/24 Allergies Allergy/AdvReac Type Severity Reaction Status Date / Time fluvastatin [From Lescol] Allergy per [facility] Verified 05/06/24 08:40 janina lisinopril AdvReac Cough Verified 05/06/24 08:40 simvastatin [From Zocor] AdvReac Abdominal Verified 05/06/24 08:40 Pain [id number] Reductase AdvReac Abdominal Verified 05/06/24 08:40 Inhibitor Pain Review of Systems ROS Statement: Those systems with pertinent positive or pertinent negative responses have been documented in the HPI. ROS Other: All systems not noted in ROS Statement are negative. Past Medical History Past Medical History: Hearing Disorder / Deafness, Hyperlipidemia, Hypertension, Musculoskeletal Disorder, Prostate Disorder Additional Past Medical History / Comment(s): Back and bilateral knee pain. Enlarged prostate. Vertigo. Hard of hearing, worse in left ear. History of Any Multi-Drug Resistant Organisms: None Reported Past Surgical History: Coronary Bypass/CABG, Heart Catheterization With Stent Additional Past Surgical History / Comment(s): Quadruple bypass 18 yrs ago, left inner carotid, shamika filter. Past Anesthesia/Blood Transfusion Reactions: No Reported Reaction Additional Past Anesthesia/Blood Transfusion Reaction / Comment(s): Vertigo. Date of Last Stent Placement:: unk Past Psychological History: No Psychological Hx Reported Smoking Status: Never smoker Past Alcohol Use History: None Reported Past Drug Use History: None Reported - Past Family History Daughter(s) Family Medical History: Cancer Additional Family Medical History / Comment(s): Breast cancer. General Exam Limitations: no limitations General appearance: alert, in no apparent distress Head exam: Present: atraumatic, normocephalic, normal inspection Respiratory exam: Present: normal lung sounds bilaterally. Absent: respiratory distress, wheezes, rales, rhonchi, stridor Cardiovascular Exam: Present: regular rate, normal rhythm Extremities exam: Present: other (Minor tenderness to palpation over the right knee and right ankle. Full range of motion of both the knee and ankle. 2+ DP and PT pulses.) Neurological exam: Present: alert, oriented X3, CN II-XII intact Psychiatric exam: Present: normal affect, normal mood Skin exam: Present: warm, dry Course Vital Signs 07/23/24 07/23/24 18:05 19:30 Temperature 98.3 F 98.1 F Pulse Rate 60 71 Respiratory 16 18 Rate Blood Pressure 168/62 166/79 O2 Sat by Pulse 95 98 Oximetry Medical Decision Making - Medical Decision Making This is a 78-year-old male who presents to the emergency department for right knee and ankle pain. Was pt. sent in by a medical professional or institution? @ -No Did you speak to anyone other than the patient for history? @ -No Did you review nursing and triage notes? @ -Yes, and I agree, it is accurate with regards to the patient's symptoms. Were old charts reviewed? @ -No Differential Diagnosis? @ -Differential Musculoskeletal Muscular strain, contusion, ligament sprain, fracture, arthritis, septic arthritis, bursitis, cellulitis, muscle spasm, nerve compression, DVT, arterial occlusion, herpes zoster, electrolyte abnormality, tumor.... This is not meant to be in all inclusive list EKG interpreted by me (3pts min.)? @ -Not obtained X-rays interpreted by me (1pt min.)? @ -X-ray of the right knee and ankle obtained. My interpretation identifies no acute fractures. CT interpreted by me (1pt min.)? @ -Not obtained U/S interpreted by me (1pt. min.)? @ -Not obtained What testing was considered but not performed? (CT, X-rays, U/S, labs)? Why? @ -None What meds were considered but not given? Why? @ -None Did you discuss the management of the patient with other professionals? @ -No Did you reconcile home meds? @ -No Was smoking cessation discussed for >3mins.? @ -No Was critical care preformed (if so, how long)? @ -No Were there social determinants of health that impacted care today? How? (Homelessness, low income, unemployed, alcoholism, drug addiction, transportation, low edu. Level, literacy, decrease access to med. care, longterm, rehab)? @ -No Was there de-escalation of care discussed even if they declined? (Discuss DNR or withdrawal of care, Hospice)? @ -No What co-morbidities impacted this encounter? (DM, HTN, Smoking, COPD, CAD, Cancer, CVA, Hep., AIDS, mental health diagnosis, sleep apnea, morbid obesity)? @ -Osteoarthritis Was patient admitted / discharged? @ -Discharged. X-ray of the right knee and ankle obtained revealing no acute process. Patient declined the need for any pain medication in the emergency department. He was provided with a knee immobilizer and Velcro stirrup splint to use if needed for support. He has tramadol and Tylenol he can take at home if needed. Advised that if symptoms persist he can follow-up with orthopedics, who he is already established with. Patient discharged home in stable conditi on. Case discussed with ED attending Dr. Steele. Return precautions reviewed in depth, the patient is instructed to return to the emergency department with any new, worsening, or concerning symptoms. Patient verbalized understanding. Undiagnosed new problem with uncertain prognosis? @ -None Drug Therapy requiring intensive monitoring for toxicity (Heparin, Nitro, Insulin, Cardizem)? @ -None Were any procedures done? @ -None Diagnosis/symptom? @ -Right knee sprain, right ankle sprain Acute, or Chronic, or Acute on Chronic? @ -Acute Uncomplicated (without systemic symptoms) or Complicated (systemic symptoms)? @ -Uncomplicated Side effects of treatment? @ -None Exacerbation, Progression, or Severe Exacerbation] @ -Not applicable Poses a threat to life or bodily function? @ -No - Radiology Data Radiology results: report reviewed, image reviewed Disposition Clinical Impression: Right knee sprain, Right ankle sprain Disposition: HOME SELF-CARE Instructions (If sedation given, give patient instructions): Ankle Sprain (ED), Knee Sprain (ED) Additional Instructions: Return to the emergency department with any new, worsening, or concerning symptoms. Take your Tylenol and tramadol as needed for pain relief. You can also ice the painful areas. Follow-up with Dr. Inman if your pain persists. Is patient prescribed a controlled substance at d/c from ED?: No Referrals: Miko Denis DO [Primary Care Provider] - 1-2 days Sixto Inman MD [STAFF PHYSICIAN] - 1-2 days Time of Disposition: 19:09
[2024-07-23 19:31] VITALS: BP 166/79; PULSE 71; RESP 18; TEMP 98.1
== END 2024-07-23 19:31 | disposition home or self-care (01) ==
LOC: EC 17:51
DX: S83.91XA Sprain of unspecified site of right knee, initial encounter (principal); S93.401A Sprain of unspecified ligament of right ankle, initial encounter; M19.90 Unspecified osteoarthritis, unspecified site; Z88.8 Allergy status to other drugs, medicaments and biological substances; W54.8XXA Other contact with dog, initial encounter
CPT/HCPCS: 73562; 73610; 99283; L4350; L1830